=== PATIENT | male | born 1930 | race African-American/Black ===

== ENCOUNTER 2016-09-15 12:29 | Emergency (ER) | payer MEDICARE ==
[2016-09-15 12:33] VITALS: TEMP 98.1
--- NOTE | 2016-09-15 14:05 | ED ---
General Adult HPI - General Chief complaint: Urogenital Stated complaint: Male Time Seen by Provider: 09/15/16 13:46 Source: patient, RN notes reviewed Mode of arrival: wheelchair Limitations: no limitations - History of Present Illness Initial comments: This is an 86-year-old male presents with problems with his Gamino catheter. Patient states the bag is leaking. Patient states he gets the Gamino removed in 2 days. Patient states he was at his urologist today but did not ask for a new bag. Patient is also requesting pain medicine for pain associated with the gamino. Patient denies any sign of infection or abdominal pain or back pain. Patient denies any fever/chills or testicular pain. Patient admits to normal urine output, denies any hematuria. Patient denies any recent fever, chills, shortness breath, chest pain, abdominal pain, nausea/vomiting/diarrhea, numbness , tingling, headache, or visual changes, or any other complaints. - Related Data Home Medications Medication Instructions Recorded Confirmed Aspirin 325 mg PO BID 08/31/16 09/07/16 Tamsulosin [Flomax] 0.4 mg PO DAILY 08/31/16 09/07/16 Artificial Tears-Hypromellose 1 drops BOTH EYES DAILY PRN 09/07/16 09/07/16 [Artificial Tear Drops] Previous Rx's Medication Instructions Recorded Sulfamethox-Tmp 800-160Mg [Bactrim 1 tab PO Q12HR #20 tab 09/15/16 DS 800-160 mg] Allergies Allergy/AdvReac Type Severity Reaction Status Date / Time No Known Allergies Allergy Verified 09/15/16 12:33 Review of Systems ROS Statement: Those systems with pertinent positive or pertinent negative responses have been documented in the HPI. ROS Other: All systems not noted in ROS Statement are negative. Past Medical History Past Medical History: Atrial Fibrillation, COPD, GERD/Reflux, Hypertension, Memory Impairment, Myocardial Infarction ([place]), Osteoarthritis (OA), Prostate Disorder Additional Past Medical History / Comment(s): memory problems, indwelling cath Last Myocardial Infarction Date:: unk History of Any Multi-Drug Resistant Organisms: None Reported Past Surgical History: Heart Catheterization, Orthopedic Surgery Additional Past Surgical History / Comment(s): right knee ligament repair, cataracts Past Anesthesia/Blood Transfusion Reactions: No Reported Reaction Past Psychological History: No Psychological Hx Reported Smoking Status: Former smoker Past Alcohol Use History: None Reported Additional Past Alcohol Use History / Comment(s): started smoking at age smoked 1.5 ppd quit 1974 Past Drug Use History: None Reported - Past Family History Father Additional Family Medical History / Comment(s): heart problems not sure what at age 73 Mother Family Medical History: Diabetes Mellitus Additional Family Medical History / Comment(s): at age 69 from complications from diabetes General Exam - General Exam Comments Initial Comments: General: The patient is awake and alert, in no distress, and does not appear acutely ill. Eye: Pupils are equal, round and reactive to light, extra-ocular movements are intact. No nystagmus. There is normal conjunctiva bilaterally. No signs of icterus. Neck: The neck is supple, there is no tenderness or JVD. Cardiovascular: There is a regular rate and rhythm. No murmur, rub or gallop is appreciated. Respiratory: Lungs are clear to auscultation, respirations are non-labored, breath sounds are equal. No wheezes, stridor, rales, or rhonchi. Gastrointestinal: Soft, non-distended, non-tender abdomen without masses or organomegaly noted. There is no rebound or guarding present. No CVA tenderness. Bowel sounds are unremarkable. : Gamino catheter in place. No erythema, swelling, discharge or warmth to the urethral meatus. Urine color normal, no hematuria. No leaking of the Gamino bag is noted. Musculoskeletal: Normal ROM, no tenderness. Strength 5/5. Sensation intact. Radial Pulses equal bilaterally 2+. Neurological: A&O x 3. CN II-XII intact, There are no obvious motor or sensory deficits. Coordination appears grossly intact. Speech is normal. Skin: Skin is warm and dry and no rashes or lesions are noted. Psychiatric: Cooperative, appropriate mood & affect, normal judgment. Limitations: no limitations Course Vital Signs 09/15/16 12:31 Temperature 98.1 F Pulse Rate 89 Respiratory 18 Rate Blood Pressure 137/89 O2 Sat by Pulse 96 Oximetry Medical Decision Making - Medical Decision Making This is an 86-year-old male who presents with gamino catheter problems. On physical exam: : Gamino catheter in place. No erythema, swelling, discharge or warmth to the urethral meatus. Urine color normal, no hematuria. No leaking of the Gamino bag is noted. Abdomen is soft, nontender nondistended. No CVA tenderness with normal bowel sounds. No guarding or rigidity. Patient states he gets his catheter removed in 2 days. Vital signs temperature 98.1, Pulse rate 89, respiratory rate 18, blood pressure 137/89, O2 sat 96%. Patient was bladder scanned and had 84 mL in the bladder. A urinalysis was sent and came back showing evidence for urinary tract infection. I discussed results with patient. I discussed that patient will be put on a course of Bactrim. I discussed close follow-up with the patient's PCP. I discussed return parameters. Patient is afebrile in the EC today. Discussed [id number] Tylenol and/or Motrin as needed for any pain. Discussed that patient should follow up with PCP in one to 2 days or return to the EC for any worsening symptoms or for any further concerns. Patient was receptive to this plan and patient will be discharged home. I discussed his case with attending physician Dr. Mata who agrees the plan as stated above. - Lab Data Lab Results 09/15/16 Range/Units 14:49 Urine Color Yellow Urine Appearance Cloudy (Clear) Urine pH 6.0 (5.0-8.0) Ur Specific [place] 1.022 (1.001-1.035) Urine Protein 2+ H (Negative) Urine Glucose (UA) Negative (Negative) Urine Ketones Negative (Negative) Urine Blood Small H (Negative) Urine Nitrate Negative (Negative) Urine Bilirubin Negative (Negative) Urine Urobilinogen <2.0 (<2.0) mg/dL Ur Leukocyte Esterase Large H (Negative) Urine RBC 42 H (0-5) /hpf Urine WBC >182 H (0-5) /hpf Ur Squamous Epith Cells 1 (0-4) /hpf Urine Bacteria Rare H (None) /hpf Urine Mucus Few H (None) /hpf Disposition Clinical Impression: Urinary tract infection, Gamino catheter in place Disposition: HOME SELF-CARE Condition: Good Instructions: Urinary Tract Infection in Men (ED) Additional Instructions: Please finish the entire course of antibiotics. Please drink plenty of fluids. Please use [id number] Tylenol and/or Motrin as needed for any pain. Please use medication as discussed. Please follow-up with family doctor in the next 2 days of symptoms have not improved. Please return to emergency room if the symptoms increase or worsen or for any other concerns. Prescriptions: Sulfamethox-Tmp 800-160Mg [Bactrim DS 800-160 mg] 1 tab PO Q12HR #20 tab Referrals: Jaycob Douglass MD [Primary Care Provider] - 1-2 days Time of Disposition: 15:29
[2016-09-15] MEDS ORDERED: ACETAMINOPHEN TAB 500 MG TAB PO STA (14:25)
[2016-09-15 15:04] LABS: Appearance,Urine Cloudy (Clear); Bacteria,Urine Rare /hpf; Bilirubin,Urine Negative (Negative); Glucose,Urine (UA) Negative (Negative); Ketones,Urine Negative (Negative); Leukocyte Esterase,Urine Large (Negative); Mucus,Urine Few /hpf; Nitrite,Urine Negative (Negative); Particle Count 57604; Protein,Urine 2+ (Negative); RBC,Urine 42 /hpf (0-5); Specific Gravity,Urine 1.022 (1.001-1.035); Squamous Epithelial Cell,Urine 1 /hpf (0-4); UA Billing (MACRO vs. MICRO) MICRO; Urobilinogen,Urine <2.0 mg/dL (<2.0); WBC,Urine >182 /hpf (0-5)
[2016-09-15 15:33] VITALS: BP 131/67; PULSE 78; RESP 20
== END 2016-09-15 15:33 | disposition home or self-care (01) ==
LOC: EC 12:29
DX: N39.0 Urinary tract infection, site not specified (principal); Z79.82 Long term (current) use of aspirin; Z79.899 Other long term (current) drug therapy; I25.2 Old myocardial infarction; Z87.891 Personal history of nicotine dependence; N42.9 Disorder of prostate, unspecified
CPT/HCPCS: 51798; 81001; 87077; 87086; 87186; 99283

== ENCOUNTER 2016-09-16 11:32 | Emergency (ER) | payer MEDICARE ==
[2016-09-16 11:36] VITALS: BP 168/82; PULSE 93; RESP 20; TEMP 97.8
--- NOTE | 2016-09-16 12:04 | ED ---
General Adult HPI - General Chief complaint: Recheck/Abnormal Lab/Rx Stated complaint: cathater problems Time Seen by Provider: 09/16/16 11:50 Source: patient, RN notes reviewed Mode of arrival: wheelchair Limitations: no limitations - History of Present Illness Initial comments: 86-year-old male presents emergency Department chief complaint Corado catheter bag leaking. Patient states started leaking this morning. Patient states since sure what happened. Patient states she was just seen here and was at reevaluated for his urine. Patient offers no complaints. Denies fever, chills. - Related Data Home Medications Medication Instructions Recorded Confirmed Aspirin 325 mg PO BID 08/31/16 09/16/16 Tamsulosin [Flomax] 0.4 mg PO DAILY 08/31/16 09/16/16 Artificial Tears-Hypromellose 1 drops BOTH EYES DAILY PRN 09/07/16 09/16/16 [Artificial Tear Drops] Previous Rx's Medication Instructions Recorded Sulfamethox-Tmp 800-160Mg [Bactrim 1 tab PO Q12HR #20 tab 09/15/16 DS 800-160 mg] Allergies Allergy/AdvReac Type Severity Reaction Status Date / Time No Known Allergies Allergy Verified 09/16/16 11:56 Review of Systems ROS Statement: Those systems with pertinent positive or pertinent negative responses have been documented in the HPI. ROS Other: All systems not noted in ROS Statement are negative. Past Medical History Past Medical History: Atrial Fibrillation, COPD, GERD/Reflux, Hypertension, Memory Impairment, Myocardial Infarction ([place]), Osteoarthritis ([place]), Prostate Disorder Additional Past Medical History / Comment(s): memory problems, indwelling cath Last Myocardial Infarction Date:: unk History of Any Multi-Drug Resistant Organisms: None Reported Past Surgical History: Heart Catheterization, Orthopedic Surgery Additional Past Surgical History / Comment(s): right knee ligament repair, cataracts Past Anesthesia/Blood Transfusion Reactions: No Reported Reaction Past Psychological History: No Psychological Hx Reported Smoking Status: Former smoker Past Alcohol Use History: None Reported Additional Past Alcohol Use History / Comment(s): started smoking at age smoked 1.5 ppd quit 1973 Past Drug Use History: None Reported - Past Family History Father Additional Family Medical History / Comment(s): heart problems not sure what at age 73 Mother Family Medical History: Diabetes Mellitus Additional Family Medical History / Comment(s): at age 69 from complications from diabetes General Exam Limitations: no limitations General appearance: alert, in no apparent distress Head exam: Present: atraumatic, normocephalic, normal inspection Respiratory exam: Present: normal lung sounds bilaterally. Absent: respiratory distress, wheezes, rales, rhonchi, stridor Cardiovascular Exam: Present: regular rate, normal rhythm, normal heart sounds. Absent: systolic murmur, diastolic murmur, rubs, gallop, clicks GI/Abdominal exam: Present: soft, normal bowel sounds. Absent: distended, tenderness, guarding, rebound, rigid exam: Present: other (Corado catheter in place, leg bag is leaking. There is no problems with the catheter itself) Course Vital Signs 09/16/16 11:35 Temperature 97.8 F Pulse Rate 93 Respiratory 20 Rate Blood Pressure 168/82 O2 Sat by Pulse 99 Oximetry Medical Decision Making - Medical Decision Making 78-year-old male presented for Corado catheter bag leaking. The bag was exchanged. Patient will be discharged. Disposition Clinical Impression: Problem with Corado catheter Disposition: HOME SELF-CARE Condition: Stable Instructions: Corado Catheter Placement and Care (ED) Additional Instructions: Please return to the Emergency Department if symptoms worsen or any other concerns. Time of Disposition: 12:04
== END 2016-09-16 12:17 | disposition home or self-care (01) ==
LOC: EC 11:32
DX: T83.038A Leakage of other urinary catheter, initial encounter (principal); I25.2 Old myocardial infarction; N42.9 Disorder of prostate, unspecified; M19.90 Unspecified osteoarthritis, unspecified site; Z98.61 Coronary angioplasty status; Z79.82 Long term (current) use of aspirin; Z87.891 Personal history of nicotine dependence; Z79.899 Other long term (current) drug therapy
CPT/HCPCS: 51702; 99282

== ENCOUNTER 2016-09-20 16:12 | Emergency (ER) | payer MEDICARE ==
[2016-09-20 16:42] VITALS: RESP 18
[2016-09-20] MEDS ORDERED: HYDROcodone/APAP 5-325MG 1 EACH TAB PO STA (17:23)
--- NOTE | 2016-09-20 17:43 | ED ---
General Adult HPI - General Chief complaint: Urogenital Stated complaint: Male Gu Source: patient, RN notes reviewed, old records reviewed Mode of arrival: wheelchair Limitations: no limitations - History of Present Illness Initial comments: Chief complaint history of present illness patient has 2 complaints one his leg bag is leaking. This would be replaced. The second is he has chronic right knee pain. No new injuries. History of surgery on that knee with occasional steroid shots. - Related Data Home Medications Medication Instructions Recorded Confirmed Aspirin 325 mg PO BID 08/31/16 09/20/16 Tamsulosin [Flomax] 0.4 mg PO DAILY 08/31/16 09/20/16 Previous Rx's Medication Instructions Recorded Sulfamethox-Tmp 800-160Mg [Bactrim 1 tab PO Q12HR #20 tab 09/15/16 DS 800-160 mg] Allergies Allergy/AdvReac Type Severity Reaction Status Date / Time No Known Allergies Allergy Verified 09/20/16 16:48 Review of Systems ROS Statement: Those systems with pertinent positive or pertinent negative responses have been documented in the HPI. Patient denying any headache or visual acuity changes no chest pain shortness breath GI/ problems other than a leaking Corado catheter bag which is attached to his leg. This will be replaced. Past medical problems listed on the chart include A. fib, COPD, GERD, hypertension, mild dementia. Previous HI, OA, prostate disorder, surgeries include heart cath, orthopedic surgery on his right knee with ligament repair. Chronic right knee laterally. Nonsmoker nondrinker no known ALLERGIES. Family history noncontributory ROS Other: All systems not noted in ROS Statement are negative. Past Medical History Past Medical History: Atrial Fibrillation, COPD, GERD/Reflux, Hypertension, Memory Impairment, Myocardial Infarction ([place]), Osteoarthritis (OA), Prostate Disorder Additional Past Medical History / Comment(s): memory problems, indwelling cath Last Myocardial Infarction Date:: unk History of Any Multi-Drug Resistant Organisms: None Reported Past Surgical History: Heart Catheterization, Orthopedic Surgery Additional Past Surgical History / Comment(s): right knee ligament repair, cataracts Past Anesthesia/Blood Transfusion Reactions: No Reported Reaction Past Psychological History: No Psychological Hx Reported Smoking Status: Former smoker Past Alcohol Use History: None Reported Additional Past Alcohol Use History / Comment(s): started smoking at age smoked 1.5 ppd quit 1973 Past Drug Use History: None Reported - Past Family History Father Additional Family Medical History / Comment(s): heart problems not sure what at age 73 Mother Family Medical History: Diabetes Mellitus Additional Family Medical History / Comment(s): at age 69 from complications from diabetes General Exam - General Exam Comments Initial Comments: Exam pertinent for the patient's of visit finds a leaking Corado catheter bag this is replaced. Examination of the patient's knee shows no swelling. Discomfort with palpation to the lateral aspect. Well-healed scar. No swelling. Neurovascular status of foot is intact. Patient suffers from chronic pain. Requesting a pain pill. No other complaints no other problems. Physical examination was done in general without any other complaints. His vital signs in the emergency room temp 97.2 pulse 89 respiratory rate 18 pulse ox 90% room air blood pressure 145/74. The patient's mildly elevated systolic blood pressure will be rechecked by his family doctor this week. Limitations: no limitations Course Vital Signs 09/20/16 16:40 Temperature 97.2 F L Pulse Rate 89 Respiratory 18 Rate Blood Pressure 145/74 O2 Sat by Pulse 98 Oximetry Medical Decision Making - Medical Decision Making Patient Corado catheter bag was replaced. He was given one [place]. The patient be discharged home. Advised follow-up with his family doctor. Disposition Clinical Impression: Corado catheter problem, Chronic pain of right knee Disposition: HOME SELF-CARE Condition: Fair Instructions: Knee Pain (ED) Time of Disposition: 17:43
[2016-09-20 17:54] VITALS: BP 138/69; PULSE 87; TEMP 97.5
== END 2016-09-20 17:53 | disposition home or self-care (01) ==
LOC: EC 16:12
DX: T83.038A Leakage of other urinary catheter, initial encounter (principal); M25.561 Pain in right knee; G89.29 Other chronic pain; I10 Essential (primary) hypertension; I25.2 Old myocardial infarction; Z98.61 Coronary angioplasty status; Z79.82 Long term (current) use of aspirin; Z87.891 Personal history of nicotine dependence; Z79.899 Other long term (current) drug therapy
CPT/HCPCS: 99283

== ENCOUNTER 2016-09-21 14:25 | Emergency (ER) | payer MEDICARE ==
--- NOTE | 2016-09-21 16:18 | ED ---
Male Urogenital HPI - General Chief complaint: Urogenital Stated complaint: revisit Male Time Seen by Provider: 09/21/16 16:10 Source: patient, RN notes reviewed Mode of arrival: ambulatory Limitations: no limitations - History of Present Illness Initial comments: 86-year-old female presents emergency Department chief complaint of Corado leaking. Patient states that he had leg bag change twice that is not leaking though he states it's leaking around the Corado itself. Patient states that he notices an alert were wet earlier today. Patient denies any pain associated with. Denies any lower abdominal pain. Denies fever, chills. Patient states she is scheduled to follow up with urology this week. - Related Data Home Medications Medication Instructions Recorded Confirmed Aspirin 325 mg PO BID 08/31/16 09/21/16 Tamsulosin [Flomax] 0.4 mg PO DAILY 08/31/16 09/21/16 Previous Rx's Medication Instructions Recorded Sulfamethox-Tmp 800-160Mg [Bactrim 1 tab PO Q12HR #20 tab 09/15/16 DS 800-160 mg] Allergies Allergy/AdvReac Type Severity Reaction Status Date / Time No Known Allergies Allergy Verified 09/21/16 16:10 Review of Systems ROS Statement: Those systems with pertinent positive or pertinent negative responses have been documented in the HPI. ROS Other: All systems not noted in ROS Statement are negative. Past Medical History Past Medical History: Atrial Fibrillation, COPD, GERD/Reflux, Hypertension, Memory Impairment, Myocardial Infarction ([place]), Osteoarthritis (OA), Prostate Disorder Additional Past Medical History / Comment(s): memory problems, indwelling cath Last Myocardial Infarction Date:: unk History of Any Multi-Drug Resistant Organisms: None Reported Past Surgical History: Heart Catheterization, Orthopedic Surgery Additional Past Surgical History / Comment(s): right knee ligament repair, cataracts Past Anesthesia/Blood Transfusion Reactions: No Reported Reaction Past Psychological History: No Psychological Hx Reported Smoking Status: Former smoker Past Alcohol Use History: None Reported Additional Past Alcohol Use History / Comment(s): started smoking at age smoked 1.5 ppd quit 1973 Past Drug Use History: None Reported - Past Family History Father Additional Family Medical History / Comment(s): heart problems not sure what at age 73 Mother Family Medical History: Diabetes Mellitus Additional Family Medical History / Comment(s): at age 69 from complications from diabetes General Exam Limitations: no limitations General appearance: alert, in no apparent distress Respiratory exam: Present: normal lung sounds bilaterally. Absent: respiratory distress, wheezes, rales, rhonchi, stridor Cardiovascular Exam: Present: regular rate, normal rhythm, normal heart sounds. Absent: systolic murmur, diastolic murmur, rubs, gallop, clicks GI/Abdominal exam: Present: soft, normal bowel sounds. Absent: distended, tenderness, guarding, rebound, rigid exam: Present: other (Corado in place) Neurological exam: Present: alert, oriented X3, CN II-XII intact Skin exam: Present: warm, dry, intact, normal color. Absent: rash Course Vital Signs 09/21/16 14:56 Temperature 98.0 F Pulse Rate 76 Respiratory 20 Rate Blood Pressure 139/65 O2 Sat by Pulse 99 Oximetry Medical Decision Making - Medical Decision Making 86-year-old male presented for Corado catheter problems. Patient's Corado was exchanged. Patient will be discharged. Disposition Clinical Impression: Corado catheter problem Disposition: HOME SELF-CARE Condition: Stable Instructions: Corado Catheter Placement and Care (ED) Additional Instructions: Please return to the Emergency Department if symptoms worsen or any other concerns. Referrals: Jaycob Douglass MD [Primary Care Provider] - 1-2 days Abe Oscar MD [STAFF PHYSICIAN] - 1-2 days Time of Disposition: 16:20
[2016-09-21 16:48] VITALS: BP 150/76; PULSE 79; RESP 16; TEMP 97.6
== END 2016-09-21 16:50 | disposition home or self-care (01) ==
LOC: EC 14:25
DX: T83.031A Leakage of indwelling urethral catheter, initial encounter (principal); N42.9 Disorder of prostate, unspecified; Z79.82 Long term (current) use of aspirin; Z79.899 Other long term (current) drug therapy; Z87.891 Personal history of nicotine dependence
CPT/HCPCS: 51702; 99283

== ENCOUNTER 2016-10-10 16:37 | Emergency (ER) | payer MEDICARE ==
[2016-10-10 16:53] VITALS: BP 135/78; PULSE 92; RESP 16; TEMP 98.1
--- NOTE | 2016-10-10 17:09 | ED ---
Male Urogenital HPI - General Chief complaint: Urogenital Stated complaint: Male Time Seen by Provider: 10/10/16 17:02 Source: patient, RN notes reviewed Mode of arrival: wheelchair Limitations: no limitations - History of Present Illness Initial comments: 86-year-old male presents emergency Department with chief complaint of Corado catheter problem. Patient states his leg bag broken. Patient has seen here multiple times for Corado catheter problems. Patient's unsure what happens. Patient denies any abdominal pain including nausea and vomiting diarrhea, constipation. Patient has had a Corado first quite some time states it was changed a few weeks ago. Patient denies flank pain, fever, chill - Related Data Home Medications Medication Instructions Recorded Confirmed Aspirin 325 mg PO BID 08/31/16 09/21/16 Tamsulosin [Flomax] 0.4 mg PO DAILY 08/31/16 09/21/16 Previous Rx's Medication Instructions Recorded Sulfamethox-Tmp 800-160Mg [Bactrim 1 tab PO Q12HR #20 tab 09/15/16 DS 800-160 mg] Allergies Allergy/AdvReac Type Severity Reaction Status Date / Time No Known Allergies Allergy Verified 10/10/16 16:53 Review of Systems ROS Statement: Those systems with pertinent positive or pertinent negative responses have been documented in the HPI. ROS Other: All systems not noted in ROS Statement are negative. Past Medical History Past Medical History: Atrial Fibrillation, COPD, GERD/Reflux, Hypertension, Memory Impairment, Myocardial Infarction ([place]), Osteoarthritis (OA), Prostate Disorder Additional Past Medical History / Comment(s): memory problems, indwelling cath Last Myocardial Infarction Date:: unk History of Any Multi-Drug Resistant Organisms: None Reported Past Surgical History: Heart Catheterization, Orthopedic Surgery Additional Past Surgical History / Comment(s): right knee ligament repair, cataracts Past Anesthesia/Blood Transfusion Reactions: No Reported Reaction Past Psychological History: No Psychological Hx Reported Smoking Status: Former smoker Past Alcohol Use History: None Reported Additional Past Alcohol Use History / Comment(s): started smoking at age smoked 1.5 ppd quit 1973 Past Drug Use History: None Reported - Past Family History Father Additional Family Medical History / Comment(s): heart problems not sure what at age 73 Mother Family Medical History: Diabetes Mellitus Additional Family Medical History / Comment(s): at age 69 from complications from diabetes General Exam Limitations: no limitations General appearance: alert, in no apparent distress Respiratory exam: Present: normal lung sounds bilaterally. Absent: respiratory distress, wheezes, rales, rhonchi, stridor Cardiovascular Exam: Present: regular rate, normal rhythm, normal heart sounds. Absent: systolic murmur, diastolic murmur, rubs, gallop, clicks GI/Abdominal exam: Present: soft, normal bowel sounds. Absent: distended, tenderness, guarding, rebound, rigid exam: Present: other (Corado in place) Course Vital Signs 10/10/16 16:50 Temperature 98.1 F Pulse Rate 92 Respiratory 16 Rate Blood Pressure 135/78 O2 Sat by Pulse 96 Oximetry Medical Decision Making - Medical Decision Making 86-year-old male presented for Corado catheter leg bag leaking. Patient's leg bag was exchanged. Patient will be discharged. Disposition Clinical Impression: Problem with Corado catheter Disposition: HOME SELF-CARE Condition: Stable Instructions: Corado Catheter Placement and Care (ED) Additional Instructions: Please return to the Emergency Department if symptoms worsen or any other concerns. Time of Disposition: 17:09
== END 2016-10-10 17:25 | disposition home or self-care (01) ==
LOC: EC 16:37
DX: T83.038A Leakage of other urinary catheter, initial encounter (principal); N42.9 Disorder of prostate, unspecified; I48.91 Unspecified atrial fibrillation; I25.2 Old myocardial infarction; Z79.82 Long term (current) use of aspirin; Z79.899 Other long term (current) drug therapy; Z87.891 Personal history of nicotine dependence
CPT/HCPCS: 99283

== ENCOUNTER 2016-10-16 13:29 | Emergency (ER) | payer MEDICARE ==
[2016-10-16 14:23] VITALS: BP 171/71; PULSE 68; RESP 16; TEMP 97
[2016-10-16] MEDS ORDERED: PROPARACAINE 0.5% OPHTH DROPS 15 ML BTL LEFT EYE STA (14:34)
--- NOTE | 2016-10-16 14:44 | ED ---
General Adult HPI - General Chief complaint: Eye Problems Stated complaint: Eye Problem Time Seen by Provider: 10/16/16 14:29 Source: patient, RN notes reviewed Mode of arrival: ambulatory Limitations: no limitations - History of Present Illness Initial comments: This is an 86-year-old male who presents with redness to the right eye that started today. Patient states he only noticed this redness when he looks in the mirror and patient denies any pain or foreign body sensation to the right eye. Patient does admit to some blurring of the vision in this right eye. Patient is not on any anticoagulants. Patient denies any trauma, cough, Valsalva, sneezing, vomiting, history of hypertension, history of diabetes and patient does not wear contacts. Patient denies any discharge from the eye. Patient denies any photophobia. Patient denies any recent fever, chills, shortness breath, chest pain, abdominal pain, nausea/vomiting/diarrhea, back pain, numbness, tingling, hematuria, headache, or any other complaints. - Related Data Home Medications Medication Instructions Recorded Confirmed Aspirin 325 mg PO BID 08/31/16 10/16/16 Tamsulosin [Flomax] 0.4 mg PO DAILY 08/31/16 10/16/16 Allergies Allergy/AdvReac Type Severity Reaction Status Date / Time No Known Allergies Allergy Verified 10/16/16 14:23 Review of Systems ROS Statement: Those systems with pertinent positive or pertinent negative responses have been documented in the HPI. ROS Other: All systems not noted in ROS Statement are negative. Past Medical History Past Medical History: Atrial Fibrillation, COPD, GERD/Reflux, Hypertension, Memory Impairment, Myocardial Infarction ([place]), Osteoarthritis (OA), Prostate Disorder Additional Past Medical History / Comment(s): memory problems, indwelling cath Last Myocardial Infarction Date:: unk History of Any Multi-Drug Resistant Organisms: None Reported Past Surgical History: Heart Catheterization, Orthopedic Surgery Additional Past Surgical History / Comment(s): right knee ligament repair, cataracts Past Anesthesia/Blood Transfusion Reactions: No Reported Reaction Past Psychological History: No Psychological Hx Reported Smoking Status: Former smoker Past Alcohol Use History: None Reported Additional Past Alcohol Use History / Comment(s): started smoking at age smoked 1.5 ppd quit 1973 Past Drug Use History: None Reported - Past Family History Father Additional Family Medical History / Comment(s): heart problems not sure what at age 73 Mother Family Medical History: Diabetes Mellitus Additional Family Medical History / Comment(s): at age 69 from complications from diabetes General Exam - General Exam Comments Initial Comments: General: The patient is awake and alert, in no distress, and does not appear acutely ill. Eye: There is a subconjunctival hemorrhage noted to the right eye. There is no hyphema, hypopyon or foreign body noted on eyelid eversion or observation Pupils are equal, round and reactive to light, extra-ocular movements are intact. No nystagmus. There is normal conjunctiva on the left side. No signs of icterus. Visual acuity is 20/25 in the left eye and 20/30 in the right eye. Nose: Nasal turbinates pink and moist Mouth and throat: There are moist mucous membranes and no oral lesions. Neck: The neck is supple, there is no tenderness or JVD. Cardiovascular: There is a regular rate and rhythm. No murmur, rub or gallop is appreciated. Respiratory: Lungs are clear to auscultation, respirations are non-labored, breath sounds are equal. No wheezes, stridor, rales, or rhonchi. Musculoskeletal: Normal ROM, no tenderness. Strength 5/5. Sensation intact. Radial pulses equal bilaterally 2+. Neurological: A&O x 3. CN II-XII intact, There are no obvious motor or sensory deficits. Coordination appears grossly intact. Speech is normal. Skin: Skin is warm and dry and no rashes or lesions are noted. Psychiatric: Cooperative, appropriate mood & affect, normal judgment. Limitations: no limitations Course Vital Signs 10/16/16 14:22 Temperature 97.0 F L Pulse Rate 68 Respiratory 16 Rate Blood Pressure 171/71 O2 Sat by Pulse 97 Oximetry Medical Decision Making - Medical Decision Making This is an 78-year-old male presents subconjunctival hemorrhage of the right eye that started today. Patient denies any pain in the eye. On physical exam There is a subconjunctival hemorrhage noted to the right eye. There is no hyphema, hypopyon or foreign body noted on eyelid eversion or observation Pupils are equal, round and reactive to light, extra-ocular movements are intact. No nystagmus. There is normal conjunctiva on the left side. No signs of icterus. Proparacaine was applied to the eye. Fluorescein stain was applied to the eye and viewed under the Soto lamp. No foreign body noted with eyelid eversion. No corneal abrasion or foreign body was noted with Soto lamp examination. No hyphema and no hypopyon was noted on soto lamp exam. Discussed with the patient that this is a subconjunctival hemorrhage. I discussed that this will resolve on its own in approximately 2 weeks. Discussed return parameters. Discussed follow-up with ophthalmology if this is not resolved in 2 weeks. Discussed that patient should follow up with PCP in one to 2 days or return to the [facility] for any worsening symptoms or for any further concerns. Patient was receptive to this plan and patient will be discharged home. Disposition Clinical Impression: Subconjunctival hemorrhage Disposition: HOME SELF-CARE Condition: Good Instructions: Subconjunctival Hemorrhage (ED) Additional Instructions: The redness in the eye should resolve in approximately 2 weeks. Please follow- up with ophthalmology if this has not resolved within 2 weeks. Discussed that patient should follow up with PCP in one to 2 days or return to the [facility] for any worsening symptoms or any further concerns. Patient was receptive to this plan patient was discharged home. Referrals: None,Stated [Primary Care Provider] - 1-2 days Jimenez Adler MD [REFERRING] - 1-2 days Melvina Ugarte III, MD [STAFF PHYSICIAN] - 1-2 days Cassie Osborne MD [STAFF PHYSICIAN] - 1-2 days Edgar Torres MD [STAFF PHYSICIAN] - 1-2 days Time of Disposition: 15:03
== END 2016-10-16 15:40 | disposition home or self-care (01) ==
LOC: EC 13:29
DX: H11.31 Conjunctival hemorrhage, right eye (principal); N42.9 Disorder of prostate, unspecified; I25.2 Old myocardial infarction; Z98.61 Coronary angioplasty status; Z79.82 Long term (current) use of aspirin; Z87.891 Personal history of nicotine dependence; Z79.899 Other long term (current) drug therapy
CPT/HCPCS: 99282

== ENCOUNTER 2016-10-31 18:57 | Emergency (ER) | payer MEDICARE ==
--- NOTE | 2016-10-31 19:24 | ED ---
General Adult HPI - General Chief complaint: Extremity Problem,Nontraumatic Stated complaint: swollen ankles Time Seen by Provider: 10/31/16 19:06 Source: patient, RN notes reviewed Mode of arrival: ambulatory Limitations: no limitations - History of Present Illness Initial comments: This is an 86-year-old male presents with bilateral leg swelling 2 days. Patient states it is the same throughout the day and does not get worse at night. Patient states he's had this once before many years ago. Patient denies any shortness of breath or chest pain. Patient denies any pain in the legs. Patient states he doesn't have shortness of breath when laying flat and does not sleep with multiple pillows. Patient denies any injury or trauma. Patient states takes medication for history of prostate problems. Patient denies any recent fever, chills, shortness breath, chest pain, abdominal pain, nausea/vomiting/diarrhea, back pain, numbness, tingling, hematuria, headache, or visual changes, or any other complaints. - Related Data Home Medications Medication Instructions Recorded Confirmed Aspirin 325 mg PO BID 08/31/16 10/16/16 Tamsulosin [Flomax] 0.4 mg PO DAILY 08/31/16 10/16/16 Previous Rx's Medication Instructions Recorded Tamsulosin HCl [Flomax] 0.4 mg PO DAILY 7 Days 10/31/16 Allergies Allergy/AdvReac Type Severity Reaction Status Date / Time No Known Allergies Allergy Verified 10/31/16 20:24 Review of Systems ROS Statement: Those systems with pertinent positive or pertinent negative responses have been documented in the HPI. ROS Other: All systems not noted in ROS Statement are negative. Past Medical History Past Medical History: Atrial Fibrillation, COPD, GERD/Reflux, Hypertension, Memory Impairment, Myocardial Infarction ([place]), Osteoarthritis (OA), Prostate Disorder Additional Past Medical History / Comment(s): memory problems, indwelling cath Last Myocardial Infarction Date:: unk History of Any Multi-Drug Resistant Organisms: None Reported Past Surgical History: Heart Catheterization, Orthopedic Surgery Additional Past Surgical History / Comment(s): right knee ligament repair, cataracts Past Anesthesia/Blood Transfusion Reactions: No Reported Reaction Past Psychological History: No Psychological Hx Reported Smoking Status: Former smoker Past Alcohol Use History: None Reported Additional Past Alcohol Use History / Comment(s): started smoking at age smoked 1.5 ppd quit 1973 Past Drug Use History: None Reported - Past Family History Father Additional Family Medical History / Comment(s): heart problems not sure what at age 73 Mother Family Medical History: Diabetes Mellitus Additional Family Medical History / Comment(s): at age 69 from complications from diabetes General Exam - General Exam Comments Initial Comments: General: The patient is awake and alert, in no distress, and does not appear acutely ill. Eye: Pupils are equal, round and reactive to light, extra-ocular movements are intact. No nystagmus. There is normal conjunctiva bilaterally. No signs of icterus. Ears: TMs pink and pearly with intact cone of light bilaterally. Normal external ear canals Nose: Nasal turbinates pink and moist Mouth and throat: There are moist mucous membranes and no oral lesions. Neck: The neck is supple, there is no tenderness or JVD. Cardiovascular: There is an irregularly irregular rhythm with a regular rate. No murmur, rub or gallop is appreciated. Respiratory: Lungs are clear to auscultation, respirations are non-labored, breath sounds are equal. No wheezes, stridor, rales, or rhonchi. Gastrointestinal: Soft, non-distended, non-tender abdomen without masses or organomegaly noted. There is no rebound or guarding present. No CVA tenderness. Bowel sounds are unremarkable. Musculoskeletal: There is 2+ pitting edema bilaterally. No calf tenderness. Normal ROM, no tenderness. Strength 5/5. Sensation intact. Radial pulses equal bilaterally 2+. Posterior tibial pulses are equal bilaterally via [place]. Neurological: A&O x 3. CN II-XII intact, There are no obvious motor or sensory deficits. Coordination appears grossly intact. Speech is normal. Skin: Skin is warm and dry and no rashes or lesions are noted. Psychiatric: Cooperative, appropriate mood & affect, normal judgment. Limitations: no limitations Course Vital Signs 10/31/16 19:00 Temperature 98.4 F Pulse Rate 94 Respiratory 16 Rate Blood Pressure 209/82 O2 Sat by Pulse 97 Oximetry EKG Findings - EKG Comments: EKG Findings:: EKG was done at 1926 showing atrial fibrillation. Ventricular rate of 88, QRS duration of 98 and QTc of 474. This EKG was compared with an EKG on 04/19/2016 with similar findings. No acute ST changes. Medical Decision Making - Medical Decision Making This is an 78-year-old male presents with bilateral leg swelling 2 days. On physical exam lungs are clear to auscultation bilaterally. There is 2+ pitting edema bilaterally. No calf tenderness. Normal ROM, no tenderness. Strength 5/ 5. Sensation intact. Radial pulses equal bilaterally 2+. Posterior tibial pulses are equal bilaterally via [place].There is an irregularly irregular rhythm with a regular rate. No murmur, rub or gallop is appreciated. Patient has a history of A. fib. Patient is unsure what blood pressure medication he takes and patient denies being on any anticoagulants. Blood pressure was rechecked and is 135/81. EKG was done at 1926 showing atrial fibrillation. Ventricular rate of 88, QRS duration of 98 and QTc of 474. This EKG was compared with an EKG on 04/19/2016 with similar findings. No acute ST changes. A chest x-ray was done and reviewed showing:Correlate for pulmonary venous hypertension and interstitial edema, follow-up recommended. Reported by Dr. Reddy. Cardiac labs were within normal limits. No elevated troponin. Basic labs were drawn and reviewed. BNP is slightly elevated but patient is not having any shortness of breath today. I discussed return parameters. I discussed the results of chest x-ray with patient and discussed that he needs to follow-up with his primary care physician in one to 2 days or return to the [facility] for any worsening symptoms or for any further concerns. I discussed this case with attending physician Dr. Damon who agrees with plan as stated above. - Lab Data Result diagrams: 10/31/16 19:30 10/31/16 19:30 Lab Results 10/31/16 10/31/16 10/31/16 Range/Units 19:30 19:30 19:30 WBC 4.9 (3.8-10.6) k/uL RBC 3.90 L (4.30-5.90) m/uL Hgb 12.2 L (13.0-17.5) gm/dL Hct 38.4 L (39.0-53.0) % MCV 98.4 (80.0-100.0) fL MCH 31.2 (25.0-35.0) pg MCHC 31.7 (31.0-37.0) g/dL RDW 14.2 (11.5-15.5) % Plt Count 158 (150-450) k/uL Neutrophils % 66 % Lymphocytes % 17 % Monocytes % 7 % Eosinophils % 7 % Basophils % 0 % Neutrophils # 3.2 (1.3-7.7) k/uL Lymphocytes # 0.9 L (1.0-4.8) k/uL Monocytes # 0.3 (0-1.0) k/uL Eosinophils # 0.4 (0-0.7) k/uL Basophils # 0.0 (0-0.2) k/uL PT (9.0-12.0) sec INR (<1.1) APTT (22.0-30.0) sec Sodium 142 (137-145) mmol/L Potassium 4.2 (3.5-5.1) mmol/L Chloride 104 (98-107) mmol/L Carbon Dioxide 29 (22-30) mmol/L Anion Gap 9 mmol/L BUN 10 (9-20) mg/dL Creatinine 0.79 (0.66-1.25) mg/dL Est GFR (MDRD) Af Amer >60 (>60 ml/min/1.73 sqM) Est GFR (MDRD) Non-Af >60 (>60 ml/min/1.73 sqM) Glucose 116 H (74-99) mg/dL Calcium 9.0 (8.4-10.2) mg/dL Magnesium 2.1 (1.6-2.3) mg/dL Total Bilirubin 0.7 (0.2-1.3) mg/dL AST 23 (17-59) U/L ALT 29 (21-72) U/L Alkaline Phosphatase 66 (38-126) U/L Total Creatine Kinase 83 (55-170) U/L CK-MB (CK-2) 1.1 (0.0-2.4) ng/mL CK-MB (CK-2) Rel Index 1.3 Troponin I 0.023 (0.000-0.034) ng/mL NT-Pro-B Natriuret Pep pg/mL Total Protein 7.4 (6.3-8.2) g/dL Albumin 3.8 (3.5-5.0) g/dL 10/31/16 10/31/16 Range/Units 19:30 19:30 WBC (3.8-10.6) k/uL RBC (4.30-5.90) m/uL Hgb (13.0-17.5) gm/dL Hct (39.0-53.0) % MCV (80.0-100.0) fL MCH (25.0-35.0) pg MCHC (31.0-37.0) g/dL RDW (11.5-15.5) % Plt Count (150-450) k/uL Neutrophils % % Lymphocytes % % Monocytes % % Eosinophils % % Basophils % % Neutrophils # (1.3-7.7) k/uL Lymphocytes # (1.0-4.8) k/uL Monocytes # (0-1.0) k/uL Eosinophils # (0-0.7) k/uL Basophils # (0-0.2) k/uL PT 10.7 (9.0-12.0) sec INR 1.1 (<1.1) APTT 24.3 (22.0-30.0) sec Sodium (137-145) mmol/L Potassium (3.5-5.1) mmol/L Chloride (98-107) mmol/L Carbon Dioxide (22-30) mmol/L Anion Gap mmol/L BUN (9-20) mg/dL Creatinine (0.66-1.25) mg/dL Est GFR (MDRD) Af Amer (>60 ml/min/1.73 sqM) Est GFR (MDRD) Non-Af (>60 ml/min/1.73 sqM) Glucose (74-99) mg/dL Calcium (8.4-10.2) mg/dL Magnesium (1.6-2.3) mg/dL Total Bilirubin (0.2-1.3) mg/dL AST (17-59) U/L ALT (21-72) U/L Alkaline Phosphatase (38-126) U/L Total Creatine Kinase (55-170) U/L CK-MB (CK-2) (0.0-2.4) ng/mL CK-MB (CK-2) Rel Index Troponin I (0.000-0.034) ng/mL NT-Pro-B Natriuret Pep 836 pg/mL Total Protein (6.3-8.2) g/dL Albumin (3.5-5.0) g/dL Disposition Clinical Impression: Localized swelling of both lower legs Disposition: HOME SELF-CARE Condition: Good Instructions: Leg Edema (ED) Additional Instructions: Please follow-up with primary care physician in one to 2 days or return to the [facility] for any worsening symptoms or for any further concerns. Prescriptions: Tamsulosin HCl [Flomax] 0.4 mg PO DAILY 7 Days Referrals: None,Stated [Primary Care Provider] - 1-2 days Jimenez Adler MD [REFERRING] - 1-2 days Cassie Osborne MD [STAFF PHYSICIAN] - 1-2 days Time of Disposition: 20:56
[2016-10-31 19:43] LABS: Basophils % (A) 0 %; CH 31.6; CHCM 32.3; Eosinophils # (A) 0.4 k/uL (0-0.7); Eosinophils % (A) 7 %; HCT 38.4 % (39.0-53.0); HDW 2.48; HGB 12.2 gm/dL (13.0-17.5); Luc # (Auto) 0.09; Luc % (Auto) 2; Lymphocytes # (A) 0.9 k/uL (1.0-4.8); Lymphocytes % (A) 17 %; MCH 31.2 pg (25.0-35.0); MCHC 31.7 g/dL (31.0-37.0); MCV 98.4 fL (80.0-100.0); Mean Platelet Volume 8.8; Monocytes # (A) 0.3 k/uL (0-1.0); Monocytes % (A) 7 %; Neutrophils # (A) 3.2 k/uL (1.3-7.7); Neutrophils % (A) 66 %; RDW 14.2 % (11.5-15.5); WBC 4.9 k/uL (3.8-10.6); WBC (Perox) 5.03
--- NOTE | 2016-10-31 19:51 | XR ---
EXAMINATION TYPE: XR chest 2V DATE OF EXAM: 10/31/2016 7:40 PM COMPARISON: Prior chest x-ray April 2016 HISTORY: Chest pain and leg swelling TECHNIQUE: Frontal and lateral views of the chest are obtained. FINDINGS: The heart is enlarged. Prominent lung volumes may be indicative of COPD. Central vasculari ty and interstitium are somewhat increased. There are coronary artery calcifications. No pneumothorax or pleural effusion. IMPRESSION: Correlate for pulmonary venous hypertension and interstitial edema, follow-up recommende d.
[2016-10-31 19:53] LABS: ALT 29 U/L (21-72); AST 23 U/L (17-59); Alkaline Phosphatase 66 U/L (38-126); Anion Gap 9 mmol/L; Blood Urea Nitrogen 10 mg/dL (9-20); Carbon Dioxide 29 mmol/L (22-30); Chloride 104 mmol/L (98-107); Glucose 116 mg/dL (74-99); Magnesium 2.1 mg/dL (1.6-2.3); Non-African American GFR(MDRD) >60 (>60 ml/min/1.73 sqM); Potassium 4.2 mmol/L (3.5-5.1); Sodium 142 mmol/L (137-145); Total Bilirubin 0.7 mg/dL (0.2-1.3); Total Protein 7.4 g/dL (6.3-8.2)
[2016-10-31 20:12] LABS: Creatine Kinase MB 1.1 ng/mL (0.0-2.4); INR 1.1 (<1.1); Partial Thromboplastin Time 24.3 sec (22.0-30.0); Prothrombin Time 10.7 sec (9.0-12.0); Troponin I 0.023 ng/mL (0.000-0.034)
[2016-10-31 21:07] VITALS: BP 163/97; PULSE 65; RESP 18; TEMP 97
== END 2016-10-31 21:07 | disposition home or self-care (01) ==
LOC: EC 18:57
DX: M79.89 Other specified soft tissue disorders (principal); M19.90 Unspecified osteoarthritis, unspecified site; N42.9 Disorder of prostate, unspecified; I48.91 Unspecified atrial fibrillation; Z79.899 Other long term (current) drug therapy; Z79.82 Long term (current) use of aspirin; I25.2 Old myocardial infarction; Z98.61 Coronary angioplasty status; Z87.891 Personal history of nicotine dependence
CPT/HCPCS: 36415; 71020; 80053; 82550; 82553; 83735; 83880; 84484; 85025; 85610; 85730; 93005; 99283; 99284

== ENCOUNTER 2016-11-07 08:23 | Emergency (ER) | payer MEDICARE ==
--- NOTE | 2016-11-07 08:46 | ED ---
Male Urogenital HPI - General Chief complaint: Urogenital Stated complaint: catheter leak Time Seen by Provider: 11/07/16 08:42 Source: patient, RN notes reviewed Mode of arrival: wheelchair Limitations: no limitations - History of Present Illness Initial comments: 86-year-old male presents emergency department to complaint Corado catheter leaking. Patient states his leg pectoral at the opening at the bottom. Patient woke up with it leaking. Patient states he has an appointment with urologist on Wednesday to have his catheter removed. Patient denies any fever, chills, abdominal pain. Patient states urine has been clear. Patient offers no other complaints. - Related Data Home Medications Medication Instructions Recorded Confirmed Aspirin 325 mg PO BID 08/31/16 10/16/16 Tamsulosin [Flomax] 0.4 mg PO DAILY 08/31/16 10/16/16 Previous Rx's Medication Instructions Recorded Tamsulosin HCl [Flomax] 0.4 mg PO DAILY 7 Days 10/31/16 Allergies Allergy/AdvReac Type Severity Reaction Status Date / Time No Known Allergies Allergy Verified 11/07/16 08:33 Review of Systems ROS Statement: Those systems with pertinent positive or pertinent negative responses have been documented in the HPI. ROS Other: All systems not noted in ROS Statement are negative. Past Medical History Past Medical History: Atrial Fibrillation, COPD, GERD/Reflux, Hypertension, Memory Impairment, Myocardial Infarction ([place]), Osteoarthritis (OA), Prostate Disorder Additional Past Medical History / Comment(s): memory problems, indwelling cath Last Myocardial Infarction Date:: unk History of Any Multi-Drug Resistant Organisms: None Reported Past Surgical History: Heart Catheterization, Orthopedic Surgery Additional Past Surgical History / Comment(s): right knee ligament repair, cataracts Past Anesthesia/Blood Transfusion Reactions: No Reported Reaction Past Psychological History: No Psychological Hx Reported Smoking Status: Former smoker Past Alcohol Use History: None Reported Additional Past Alcohol Use History / Comment(s): started smoking at age smoked 1.5 ppd quit 1974 Past Drug Use History: None Reported - Past Family History Father Additional Family Medical History / Comment(s): heart problems not sure what at age 73 Mother Family Medical History: Diabetes Mellitus Additional Family Medical History / Comment(s): at age 69 from complications from diabetes General Exam Limitations: no limitations General appearance: alert, in no apparent distress Head exam: Present: atraumatic, normocephalic, normal inspection Respiratory exam: Present: normal lung sounds bilaterally. Absent: respiratory distress, wheezes, rales, rhonchi, stridor Cardiovascular Exam: Present: regular rate, normal rhythm, normal heart sounds. Absent: systolic murmur, diastolic murmur, rubs, gallop, clicks GI/Abdominal exam: Present: soft, normal bowel sounds. Absent: distended, tenderness, guarding, rebound, rigid exam: Present: other (Corado catheter in place there is no erythema no drainage) Course Vital Signs 11/07/16 08:32 Temperature 98.1 F Pulse Rate 82 Respiratory 20 Rate Blood Pressure 162/80 O2 Sat by Pulse 97 Oximetry Medical Decision Making - Medical Decision Making 86-year-old male has chronic Corado. Corado catheter leg bag was changed. Patient has appointment on Wednesday with urology. Disposition Clinical Impression: Corado catheter problem Disposition: HOME SELF-CARE Condition: Stable Instructions: Corado Catheter Placement and Care (ED) Additional Instructions: Follow-up with urologist on Wednesday as directed.Please return to the Emergency Department if symptoms worsen or any other concerns. Time of Disposition: 08:46
[2016-11-07 09:05] VITALS: BP 174/82; PULSE 79; RESP 14; TEMP 98.3
== END 2016-11-07 09:05 | disposition home or self-care (01) ==
LOC: EC 08:23
DX: T83.031A Leakage of indwelling urethral catheter, initial encounter (principal); Z79.82 Long term (current) use of aspirin; Z79.899 Other long term (current) drug therapy; Z87.891 Personal history of nicotine dependence
CPT/HCPCS: 99283

== ENCOUNTER 2016-11-26 01:39 | Emergency (ER) | payer MEDICARE ==
[2016-11-26 01:49] VITALS: BP 125/70; PULSE 94; RESP 18; TEMP 98.4
--- NOTE | 2016-11-26 02:00 | ED ---
General Adult HPI - General Chief complaint: Urogenital Stated complaint: Male /Catheter Time Seen by Provider: 11/26/16 01:57 Source: patient Mode of arrival: wheelchair Limitations: no limitations - History of Present Illness Initial comments: 78-year-old male patient presents to emergency department today for a new Corado catheter bag. Patient states that his catheter bag "busted open" on the bottom and has been leaking. Patient denies any physical symptoms. He denies any chest pain, shortness of breath, dizziness, weakness, headache, back pain, nausea, vomiting, abdominal pain, fever or chills. Patient denies any lower abdominal pain. Does not denies any issues with the catheter other than the need for a new bag. - Related Data Home Medications Medication Instructions Recorded Confirmed Aspirin 325 mg PO BID 08/31/16 10/16/16 Tamsulosin [Flomax] 0.4 mg PO DAILY 08/31/16 10/16/16 Previous Rx's Medication Instructions Recorded Tamsulosin HCl [Flomax] 0.4 mg PO DAILY 7 Days 10/31/16 Allergies Allergy/AdvReac Type Severity Reaction Status Date / Time No Known Allergies Allergy Verified 11/26/16 01:49 Review of Systems ROS Statement: Those systems with pertinent positive or pertinent negative responses have been documented in the HPI. ROS Other: All systems not noted in ROS Statement are negative. Past Medical History Past Medical History: Atrial Fibrillation, COPD, GERD/Reflux, Hypertension, Memory Impairment, Myocardial Infarction ([place]), Osteoarthritis (OA), Prostate Disorder Additional Past Medical History / Comment(s): memory problems, indwelling cath x 1 month Last Myocardial Infarction Date:: unk History of Any Multi-Drug Resistant Organisms: None Reported Past Surgical History: Heart Catheterization, Orthopedic Surgery Additional Past Surgical History / Comment(s): right knee ligament repair, cataracts Past Anesthesia/Blood Transfusion Reactions: No Reported Reaction Past Psychological History: No Psychological Hx Reported Smoking Status: Former smoker Past Alcohol Use History: None Reported Additional Past Alcohol Use History / Comment(s): started smoking at age smoked 1.5 ppd quit 1973 Past Drug Use History: None Reported - Past Family History Father Additional Family Medical History / Comment(s): heart problems not sure what at age 73 Mother Family Medical History: Diabetes Mellitus Additional Family Medical History / Comment(s): at age 69 from complications from diabetes General Exam Limitations: no limitations General appearance: alert, in no apparent distress Head exam: Present: atraumatic, normocephalic, normal inspection Eye exam: Present: normal appearance, PERRL, EOMI. Absent: scleral icterus, conjunctival injection, periorbital swelling ENT exam: Present: normal exam, mucous membranes moist Neck exam: Present: normal inspection. Absent: tenderness, meningismus, lymphadenopathy Respiratory exam: Present: normal lung sounds bilaterally, wheezes (Faint expiratory). Absent: respiratory distress, rales, rhonchi, stridor Cardiovascular Exam: Present: regular rate, normal rhythm, normal heart sounds. Absent: systolic murmur, diastolic murmur, rubs, gallop, clicks GI/Abdominal exam: Present: soft, normal bowel sounds. Absent: distended, tenderness, guarding, rebound, rigid exam: Present: normal inspection, other (Corado catheter present). Absent: testicular tenderness, urethral discharge Extremities exam: Present: normal inspection, full ROM, normal capillary refill. Absent: tenderness, pedal edema, joint swelling, calf tenderness Back exam: Present: normal inspection Neurological exam: Present: alert, oriented X3, CN II-XII intact Psychiatric exam: Present: normal affect, normal mood Skin exam: Present: warm, dry, intact, normal color. Absent: rash Course Vital Signs 11/26/16 01:45 Temperature 98.4 F Pulse Rate 94 Respiratory 18 Rate Blood Pressure 125/70 O2 Sat by Pulse 94 L Oximetry Medical Decision Making - Medical Decision Making 86-year-old male patient presented to emergency department today for replacement Corado catheter bag. Patient states that his broken has been leaking. Physical exam is unremarkable. He denies any physical symptoms. Patient's Corado catheter bag will be changed and he will be discharged home to follow-up with his family doctor for further catheter supplies. Disposition Clinical Impression: Chronic indwelling Corado catheter Disposition: HOME SELF-CARE Condition: Stable Instructions: Corado Catheter Placement and Care (ED) Additional Instructions: Follow-up with primary care provider for further Corado catheter supplies. Return for any new, worsening, or concerning symptoms. Referrals: None,Stated [Primary Care Provider] - 1-2 days Time of Disposition: 02:05
== END 2016-11-26 02:21 | disposition home or self-care (01) ==
LOC: EC 01:39
DX: T83.89XA Other specified complication of genitourinary prosthetic devices, implants and grafts, initial encounter (principal); I25.2 Old myocardial infarction; M19.90 Unspecified osteoarthritis, unspecified site; N42.9 Disorder of prostate, unspecified; Z87.891 Personal history of nicotine dependence; Z79.82 Long term (current) use of aspirin; Z79.899 Other long term (current) drug therapy; Z95.818 Presence of other cardiac implants and grafts; Y84.6 Urinary catheterization as the cause of abnormal reaction of the patient, or of later complication, without mention of misadventure at the time of the procedure
CPT/HCPCS: 99282

== ENCOUNTER 2016-12-13 17:32 | Emergency (ER) | payer MEDICARE ==
[2016-12-13 17:52] VITALS: TEMP 99
[2016-12-13 20:26] VITALS: BP 166/104; PULSE 86; RESP 16
--- NOTE | 2016-12-13 20:28 | ED ---
General Adult HPI - General Chief complaint: Recheck/Abnormal Lab/Rx Stated complaint: CATHETER LEAKING Time Seen by Provider: 12/13/16 19:37 Source: patient, RN notes reviewed Mode of arrival: wheelchair Limitations: no limitations - History of Present Illness Initial comments: Patient 86-year-old male who presents emergency room today with chief complaint of Corado catheter bag leaking. He does admit that he has a Corado catheter due to retention. States he is scheduled follow-up with urologist tomorrow. He statesthat was leaking today. States that his problem the past with leaking bags hadn't come here to the emergency room to have a change. Patient denies any other complaints or symptoms. Patient denies any recent fever, chills, shortness of breath, chest pain, back pain, abdominal pain, nausea or vomiting, numbness or tingling, dysuria or hematuria, constipation or diarrhea, headaches or visual changes, or any other complaints. - Related Data Home Medications Medication Instructions Recorded Confirmed Aspirin 325 mg PO BID 08/31/16 12/13/16 Previous Rx's Medication Instructions Recorded Tamsulosin HCl [Flomax] 0.4 mg PO DAILY 7 Days 10/31/16 Allergies Allergy/AdvReac Type Severity Reaction Status Date / Time No Known Allergies Allergy Verified 12/13/16 19:48 Review of Systems ROS Statement: Those systems with pertinent positive or pertinent negative responses have been documented in the HPI. ROS Other: All systems not noted in ROS Statement are negative. Past Medical History Past Medical History: Atrial Fibrillation, COPD, GERD/Reflux, Hypertension, Memory Impairment, Myocardial Infarction ([place]), Osteoarthritis (OA), Prostate Disorder Additional Past Medical History / Comment(s): memory problems, indwelling cath x 1 month Last Myocardial Infarction Date:: unk History of Any Multi-Drug Resistant Organisms: None Reported Past Surgical History: Heart Catheterization, Orthopedic Surgery Additional Past Surgical History / Comment(s): right knee ligament repair, cataracts Past Anesthesia/Blood Transfusion Reactions: No Reported Reaction Past Psychological History: No Psychological Hx Reported Smoking Status: Former smoker Past Alcohol Use History: None Reported Additional Past Alcohol Use History / Comment(s): started smoking at age smoked 1.5 ppd quit 1973 Past Drug Use History: None Reported - Past Family History Father Additional Family Medical History / Comment(s): heart problems not sure what at age 73 Mother Family Medical History: Diabetes Mellitus Additional Family Medical History / Comment(s): at age 69 from complications from diabetes General Exam - General Exam Comments Initial Comments: General: The patient is awake and alert, in no distress, and does not appear acutely ill. Eye: Pupils are equal, round and reactive to light, extra-ocular movements are intact. No nystagmus. There is normal conjunctiva bilaterally. No signs of icterus. Ears, nose, mouth and throat: There are moist mucous membranes and no oral lesions. Neck: The neck is supple, there is no tenderness or JVD. Cardiovascular: There is a regular rate and rhythm. No murmur, rub or gallop is appreciated. Respiratory: Lungs are clear to auscultation, respirations are non-labored, breath sounds are equal. No wheezes, stridor, rales, or rhonchi. Gastrointestinal: Soft, non-distended, non-tender abdomen without masses or organomegaly noted. There is no rebound or guarding present. No CVA tenderness. Musculoskeletal: Normal ROM, no tenderness. Strength 5/5. Sensation intact. Pulses equal bilaterally 2+. Neurological: A&O x 3. CN II-XII intact, There are no obvious motor or sensory deficits. Coordination appears grossly intact. Speech is normal. Skin: Skin is warm and dry and no rashes or lesions are noted. Psychiatric: Cooperative, appropriate mood & affect, normal judgment. Limitations: no limitations Course Vital Signs 12/13/16 12/13/16 17:50 20:26 Temperature 99.0 F Pulse Rate 78 86 Respiratory 17 16 Rate Blood Pressure 126/68 166/104 O2 Sat by Pulse 95 99 Oximetry Medical Decision Making - Medical Decision Making Patient's Corado bag replaced here in the emergency room. Patient has no other complaints. Doing well will be discharged home advised follow-up urologist tomorrow. Disposition Clinical Impression: Corado catheter problem Disposition: HOME SELF-CARE Condition: Good Additional Instructions: Please follow-up urologist with your scheduled appointment tomorrow. Please return to emergency room for any other concerns. Time of Disposition: 20:28
== END 2016-12-13 20:32 | disposition home or self-care (01) ==
LOC: EC 17:32
DX: T83.89XA Other specified complication of genitourinary prosthetic devices, implants and grafts, initial encounter (principal); I48.91 Unspecified atrial fibrillation; I10 Essential (primary) hypertension; I25.2 Old myocardial infarction; Z87.891 Personal history of nicotine dependence; Z79.82 Long term (current) use of aspirin
CPT/HCPCS: 99283

== ENCOUNTER 2016-12-14 19:48 | Emergency (ER) | payer MEDICARE ==
[2016-12-14 20:11] VITALS: TEMP 97.9
--- NOTE | 2016-12-14 21:17 | ED ---
General Adult HPI - General Chief complaint: Recheck/Abnormal Lab/Rx Stated complaint: Cath issues Time Seen by Provider: 12/14/16 21:09 Source: patient, RN notes reviewed Mode of arrival: ambulatory Limitations: no limitations - History of Present Illness Initial comments: Patient is a pleasant 86-year-old male presenting to the emergency department with concerns for his catheter leaking. Patient had it changed early this morning and didn't follow-up with urology. Patient states he saw an personnel assistant there and they did not do much. Patient has had similar problems in the past. Patient states there is no problems placing the catheter this morning. No pain. No fever. - Related Data Home Medications Medication Instructions Recorded Confirmed Aspirin 325 mg PO BID 08/31/16 12/13/16 Previous Rx's Medication Instructions Recorded Tamsulosin HCl [Flomax] 0.4 mg PO DAILY 7 Days 10/31/16 Allergies Allergy/AdvReac Type Severity Reaction Status Date / Time No Known Allergies Allergy Verified 12/14/16 20:11 Review of Systems ROS Statement: Those systems with pertinent positive or pertinent negative responses have been documented in the HPI. ROS Other: All systems not noted in ROS Statement are negative. Constitutional: Denies: fever Eyes: Denies: eye pain ENT: Denies: ear pain Respiratory: Denies: dyspnea Cardiovascular: Denies: chest pain Endocrine: Denies: fatigue Gastrointestinal: Denies: abdominal pain Genitourinary: Denies: dysuria, hematuria, testicular pain, testicular mass Musculoskeletal: Denies: back pain Skin: Denies: rash Neurological: Denies: weakness Past Medical History Past Medical History: Atrial Fibrillation, COPD, GERD/Reflux, Hypertension, Memory Impairment, Myocardial Infarction ([place]), Osteoarthritis (OA), Prostate Disorder Additional Past Medical History / Comment(s): memory problems, indwelling cath x 1 month Last Myocardial Infarction Date:: unk History of Any Multi-Drug Resistant Organisms: None Reported Past Surgical History: Heart Catheterization, Orthopedic Surgery Additional Past Surgical History / Comment(s): right knee ligament repair, cataracts Past Anesthesia/Blood Transfusion Reactions: No Reported Reaction Past Psychological History: No Psychological Hx Reported Smoking Status: Former smoker Past Alcohol Use History: None Reported Additional Past Alcohol Use History / Comment(s): started smoking at age smoked 1.5 ppd quit 1973 Past Drug Use History: None Reported - Past Family History Father Additional Family Medical History / Comment(s): heart problems not sure what at age 73 Mother Family Medical History: Diabetes Mellitus Additional Family Medical History / Comment(s): at age 69 from complications from diabetes General Exam Limitations: no limitations General appearance: alert, in no apparent distress Head exam: Present: atraumatic Eye exam: Present: normal appearance, PERRL ENT exam: Present: normal oropharynx Neck exam: Present: normal inspection Respiratory exam: Present: normal lung sounds bilaterally Cardiovascular Exam: Present: regular rate, normal rhythm GI/Abdominal exam: Present: soft. Absent: tenderness exam: Present: normal inspection, other (Mild leaking from the urethra of urine. 16 Corado catheter present.). Absent: scrotal swelling, circumcision Extremities exam: Present: normal inspection Neurological exam: Present: alert Psychiatric exam: Present: normal affect, normal mood Skin exam: Absent: rash Course Vital Signs 12/14/16 20:09 Temperature 97.9 F Pulse Rate 68 Respiratory 18 Rate Blood Pressure 154/85 O2 Sat by Pulse 99 Oximetry Medical Decision Making - Medical Decision Making Patient advised to follow-up again tomorrow with neurology and consider seeing the physician. Corado catheter will be changed by nursing staff. Larger catheter will be placed. Disposition Clinical Impression: Urinary retention Disposition: HOME SELF-CARE Condition: Stable Instructions: Urinary Retention in Men (ED) Additional Instructions: Please follow-up with urology again tomorrow, consider seeing physician. Return for unable to urinate, leaking, pain, fever, worsening symptoms or other concerns. Referrals: None,Stated [Primary Care Provider] - 1-2 days Abe Oscar MD [STAFF PHYSICIAN] - 1-2 days Cassie Osborne MD [STAFF PHYSICIAN] - 1-2 days
[2016-12-14 22:28] VITALS: BP 151/83; PULSE 69; RESP 16
== END 2016-12-14 22:27 | disposition home or self-care (01) ==
LOC: EC 19:48
DX: R33.9 Retention of urine, unspecified (principal); I48.91 Unspecified atrial fibrillation; I10 Essential (primary) hypertension; I25.2 Old myocardial infarction; Z87.891 Personal history of nicotine dependence; Z79.82 Long term (current) use of aspirin
CPT/HCPCS: 51702; 99282

== ENCOUNTER 2016-12-15 11:48 | Emergency (ER) | payer MEDICARE ==
[2016-12-15 12:59] VITALS: RESP 18
--- NOTE | 2016-12-15 15:17 | ED ---
General Adult HPI - General Chief complaint: Urogenital Stated complaint: catheter leaking Time Seen by Provider: 12/15/16 14:53 Source: patient, RN notes reviewed Mode of arrival: wheelchair Limitations: no limitations - History of Present Illness Initial comments: Patient is 86-year-old male who presents emergency room today with chief complaint of Corado catheter problem. He does admit that his noticed some leaking around Corado catheter site. He states he was seen at [place] yesterday. He had catheter changed. States today's noticed that his brakes and went. He denies any other complaints or symptoms. Patient denies any recent fever, chills , shortness of breath, chest pain, back pain, abdominal pain, nausea or vomiting , numbness or tingling, dysuria or hematuria, constipation or diarrhea, headaches or visual changes, or any other complaints. - Related Data Home Medications Medication Instructions Recorded Confirmed Aspirin 650 mg PO BID 08/31/16 12/15/16 Tamsulosin HCl [Flomax] 0.4 mg PO HS 12/15/16 12/15/16 Allergies Allergy/AdvReac Type Severity Reaction Status Date / Time No Known Allergies Allergy Verified 12/15/16 15:31 Review of Systems ROS Statement: Those systems with pertinent positive or pertinent negative responses have been documented in the HPI. ROS Other: All systems not noted in ROS Statement are negative. Past Medical History Past Medical History: Atrial Fibrillation, COPD, GERD/Reflux, Hypertension, Memory Impairment, Myocardial Infarction ([place]), Osteoarthritis (OA), Prostate Disorder Additional Past Medical History / Comment(s): memory problems, indwelling cath x 1 month Last Myocardial Infarction Date:: unk History of Any Multi-Drug Resistant Organisms: None Reported Past Surgical History: Heart Catheterization, Orthopedic Surgery Additional Past Surgical History / Comment(s): right knee ligament repair, cataracts Past Anesthesia/Blood Transfusion Reactions: No Reported Reaction Past Psychological History: No Psychological Hx Reported Smoking Status: Former smoker Past Alcohol Use History: None Reported Additional Past Alcohol Use History / Comment(s): started smoking at age smoked 1.5 ppd quit 1973 Past Drug Use History: None Reported - Past Family History Father Additional Family Medical History / Comment(s): heart problems not sure what at age 73 Mother Family Medical History: Diabetes Mellitus Additional Family Medical History / Comment(s): at age 69 from complications from diabetes General Exam - General Exam Comments Initial Comments: General: The patient is awake and alert, in no distress, and does not appear acutely ill. Eye: Pupils are equal, round and reactive to light, extra-ocular movements are intact. No nystagmus. There is normal conjunctiva bilaterally. No signs of icterus. Ears, nose, mouth and throat: There are moist mucous membranes and no oral lesions. Neck: The neck is supple, there is no tenderness or JVD. Cardiovascular: There is a regular rate and rhythm. No murmur, rub or gallop is appreciated. Respiratory: Lungs are clear to auscultation, respirations are non-labored, breath sounds are equal. No wheezes, stridor, rales, or rhonchi. Gastrointestinal: Soft, non-distended, non-tender abdomen without masses or organomegaly noted. There is no rebound or guarding present. No CVA tenderness. Bowel sounds are unremarkable. Musculoskeletal: Normal ROM, no tenderness. Strength 5/5. Sensation intact. Pulses equal bilaterally 2+. Neurological: A&O x 3. CN II-XII intact, There are no obvious motor or sensory deficits. Coordination appears grossly intact. Speech is normal. Skin: Skin is warm and dry and no rashes or lesions are noted. Psychiatric: Cooperative, appropriate mood & affect, normal judgment. : Corado catheter placed. No obvious sign of leakage. Brace are damp. Limitations: no limitations Course Vital Signs 12/15/16 12:57 Temperature 97.6 F Pulse Rate 95 Respiratory 18 Rate Blood Pressure 121/94 O2 Sat by Pulse 98 Oximetry Medical Decision Making - Medical Decision Making Patient's Corado catheter change in the emergency room under success. Patient advised follow-up with urology tomorrow. Advised return to emergency room for any other concerns. Disposition Clinical Impression: Corado catheter problem Disposition: HOME SELF-CARE Condition: Good Additional Instructions: Please follow-up with urology in the next 1-2 days. Please return to emergency room for any other concerns. Referrals: None,Stated [Primary Care Provider] - 1-2 days Abe Oscar MD [STAFF PHYSICIAN] - 1-2 days Time of Disposition: 16:09
[2016-12-15 16:35] VITALS: BP 116/68; PULSE 80; TEMP 98.4
== END 2016-12-15 16:36 | disposition home or self-care (01) ==
LOC: EC 11:48
DX: T83.038A Leakage of other urinary catheter, initial encounter (principal); N42.9 Disorder of prostate, unspecified; Z79.82 Long term (current) use of aspirin; Z79.899 Other long term (current) drug therapy; Z87.891 Personal history of nicotine dependence
CPT/HCPCS: 99283

== ENCOUNTER 2016-12-19 14:23 | Emergency (ER) | payer MEDICARE ==
[2016-12-19 14:46] VITALS: BP 134/68; PULSE 89; RESP 16; TEMP 99.4
--- NOTE | 2016-12-19 16:01 | ED ---
General Adult HPI - General Chief complaint: Urogenital Stated complaint: Male Source: patient Mode of arrival: wheelchair Limitations: no limitations - History of Present Illness Initial comments: 6-year-old male with past medical history of indwelling urinary catheter due to prostate competitions presenting for evaluation of leaking Corado. He has been evaluated at this facility multiple times within the last week for similar type symptoms and at least 10 times already this year. He states that the collection bag is not malfunctioning but he has urine leaking around the Corado from his penis. He denies any discomfort in the bladder or belly pain. - Related Data Home Medications Medication Instructions Recorded Confirmed Aspirin 650 mg PO BID 08/31/16 12/19/16 Tamsulosin HCl [Flomax] 0.4 mg PO HS 12/15/16 12/19/16 Allergies Allergy/AdvReac Type Severity Reaction Status Date / Time No Known Allergies Allergy Verified 12/19/16 15:02 Review of Systems ROS Statement: Those systems with pertinent positive or pertinent negative responses have been documented in the HPI. ROS Other: All systems not noted in ROS Statement are negative. Constitutional: Denies: fever, chills, weight change, night sweats Eyes: Denies: eye pain, eye discharge, vision change ENT: Denies: ear pain, throat pain, dental pain, hearing loss Respiratory: Denies: cough, dyspnea Cardiovascular: Denies: chest pain, palpitations Endocrine: Denies: fatigue, polydipsia, polyuria Gastrointestinal: Denies: abdominal pain, nausea, vomiting, diarrhea, constipation, hematemesis Genitourinary: Reports: other (Urine leakage around Corado catheter from penis.) . Denies: urgency, dysuria Musculoskeletal: Denies: back pain, arthralgia Skin: Denies: rash, lesions Neurological: Denies: headache, weakness Psychiatric: Denies: anxiety, depression Hematological/Lymphatic: Denies: easy bleeding, swollen glands Past Medical History Past Medical History: Atrial Fibrillation, COPD, GERD/Reflux, Hypertension, Memory Impairment, Myocardial Infarction ([place]), Osteoarthritis (OA), Prostate Disorder Additional Past Medical History / Comment(s): memory problems, indwelling cath x 1 month Last Myocardial Infarction Date:: unk History of Any Multi-Drug Resistant Organisms: None Reported Past Surgical History: Heart Catheterization, Orthopedic Surgery Additional Past Surgical History / Comment(s): right knee ligament repair, cataracts Past Anesthesia/Blood Transfusion Reactions: No Reported Reaction Past Psychological History: No Psychological Hx Reported Smoking Status: Former smoker Past Alcohol Use History: None Reported Additional Past Alcohol Use History / Comment(s): started smoking at age smoked 1.5 ppd quit 1974 Past Drug Use History: None Reported - Past Family History Father Additional Family Medical History / Comment(s): heart problems not sure what at age 73 Mother Family Medical History: Diabetes Mellitus Additional Family Medical History / Comment(s): at age 69 from complications from diabetes General Exam Limitations: no limitations General appearance: alert, in no apparent distress Head exam: Present: atraumatic, normocephalic, normal inspection Eye exam: Present: normal appearance, PERRL, EOMI. Absent: scleral icterus, conjunctival injection, periorbital swelling ENT exam: Present: normal exam, mucous membranes moist Neck exam: Present: normal inspection. Absent: tenderness, meningismus, lymphadenopathy Respiratory exam: Present: normal lung sounds bilaterally. Absent: respiratory distress, wheezes, rales, rhonchi, stridor Cardiovascular Exam: Present: regular rate, normal rhythm, normal heart sounds. Absent: systolic murmur, diastolic murmur, rubs, gallop, clicks GI/Abdominal exam: Present: soft, normal bowel sounds. Absent: distended, tenderness, guarding, rebound, rigid Rectal exam: Present: deferred External exam: Present: normal external exam. Absent: erythema, swelling, lesions Extremities exam: Present: normal inspection, full ROM, normal capillary refill. Absent: tenderness, pedal edema, joint swelling, calf tenderness Back exam: Present: normal inspection Neurological exam: Present: alert, oriented X3, CN II-XII intact Psychiatric exam: Present: normal affect, normal mood Skin exam: Present: warm, dry, intact, normal color. Absent: rash Course Vital Signs 12/19/16 14:43 Temperature 99.4 F Pulse Rate 89 Respiratory 16 Rate Blood Pressure 134/68 O2 Sat by Pulse 97 Oximetry Medical Decision Making - Medical Decision Making 86-year-old -D[place] male with past medical history of indwelling Corado presenting for leakage of urine around the Corado from his penis. He is presented to this department numerous times in the last couple weeks due to back malfunction and leakage around the Corado. He states that it was just replaced a few days ago Corado started leaking and today. On physical examination he has no pain anywhere there are no rashes or lesions noted and there appears to be no leakage from around the Corado. The patient states that this is a concern to him because he is going to his 's tomorrow and doesn't want to have leakage on his suit in the morning. Discussed pt with Dr. Macias (urology) who recommended that the Corado be replaced and for the patient to follow-up in his office next week. Corado replaced without any Locations and there appeared to be no leakage after placement. The patient was informed of conversation with the urologist and advised to make the appointment as an outpatient. He was advised to follow with his primary care physician but to return to this facility if his symptoms should worsen or persist. The patient acknowledged an understanding of this information and agreed with this plan of care. Disposition Clinical Impression: Corado catheter problem Disposition: HOME SELF-CARE Condition: Stable Instructions: Corado Catheter Placement and Care (ED) Referrals: None,Stated [Primary Care Provider] - 1-2 days Feng Macias MD [STAFF PHYSICIAN] - 1-2 days Time of Disposition: 16:01
== END 2016-12-19 16:31 | disposition home or self-care (01) ==
LOC: EC 14:23
DX: T83.031A Leakage of indwelling urethral catheter, initial encounter (principal); M19.90 Unspecified osteoarthritis, unspecified site; N42.9 Disorder of prostate, unspecified; Z79.82 Long term (current) use of aspirin; Z87.891 Personal history of nicotine dependence; Z79.899 Other long term (current) drug therapy
CPT/HCPCS: 51702; 99283

== ENCOUNTER 2016-12-31 21:14 | Emergency (ER) | payer MEDICARE ==
[2016-12-31 21:25] VITALS: BP 137/84; PULSE 70; RESP 18; TEMP 98
--- NOTE | 2016-12-31 22:30 | ED ---
Recheck HPI - General Chief Complaint: Recheck/Abnormal Lab/Rx Stated Complaint: BP med refill Time Seen by Provider: 12/31/16 21:30 Source: patient, RN notes reviewed, old records reviewed Mode of arrival: wheelchair Limitations: no limitations - History of Present Illness Initial Comments: Patient is a 86 year old male well known to ED with chief complaint of needing a medication refill for blood pressure medication. Patient does not know the exact medication he needs, he reports he takes a few pills and has been out for 2 days. Patient has chronic BPH issues. Patient arrives with BP 138/74. Patient has no symptoms, he states that he sees PCP in 3 weeks for refills. - Related Data Home Medications Medication Instructions Recorded Confirmed Aspirin 650 mg PO BID 08/31/16 12/31/16 Tamsulosin HCl [Flomax] 0.4 mg PO HS 12/15/16 12/31/16 Previous Rx's Medication Instructions Recorded Atorvastatin [Lipitor] 40 mg PO DAILY #20 tablet 12/31/16 Metoprolol Succinate (ER) [Toprol 25 mg PO DAILY #20 tab 12/31/16 XL] Tamsulosin HCl [Flomax] 0.4 mg PO DAILY #20 cap.er.24h 12/31/16 Allergies Allergy/AdvReac Type Severity Reaction Status Date / Time No Known Allergies Allergy Verified 12/31/16 21:58 Review of Systems ROS Statement: Those systems with pertinent positive or pertinent negative responses have been documented in the HPI. ROS Other: All systems not noted in ROS Statement are negative. Past Medical History Past Medical History: Atrial Fibrillation, COPD, GERD/Reflux, Hypertension, Memory Impairment, Myocardial Infarction ([place]), Osteoarthritis (OA), Prostate Disorder Additional Past Medical History / Comment(s): memory problems, indwelling cath x 1 month Last Myocardial Infarction Date:: unk History of Any Multi-Drug Resistant Organisms: None Reported Past Surgical History: Heart Catheterization, Orthopedic Surgery Additional Past Surgical History / Comment(s): right knee ligament repair, cataracts Past Anesthesia/Blood Transfusion Reactions: No Reported Reaction Past Psychological History: No Psychological Hx Reported Smoking Status: Former smoker Past Alcohol Use History: None Reported Additional Past Alcohol Use History / Comment(s): started smoking at age smoked 1.5 ppd quit 1973 Past Drug Use History: None Reported - Past Family History Father Additional Family Medical History / Comment(s): heart problems not sure what at age 73 Mother Family Medical History: Diabetes Mellitus Additional Family Medical History / Comment(s): at age 69 from complications from diabetes General Exam - General Exam Comments Initial Comments: Pleasant 86 year old male, no distress. Limitations: no limitations General appearance: alert, in no apparent distress Head exam: Present: atraumatic, normocephalic, normal inspection Eye exam: Present: normal appearance, PERRL, EOMI. Absent: scleral icterus, conjunctival injection, periorbital swelling ENT exam: Present: normal exam, mucous membranes moist Neck exam: Present: normal inspection. Absent: tenderness, meningismus, lymphadenopathy Respiratory exam: Present: normal lung sounds bilaterally. Absent: respiratory distress, wheezes, rales, rhonchi, stridor Cardiovascular Exam: Present: regular rate, normal rhythm, normal heart sounds. Absent: systolic murmur, diastolic murmur, rubs, gallop, clicks GI/Abdominal exam: Present: soft, normal bowel sounds. Absent: distended, tenderness, guarding, rebound, rigid Extremities exam: Present: normal inspection, full ROM, normal capillary refill. Absent: tenderness, pedal edema, joint swelling, calf tenderness Back exam: Present: normal inspection Neurological exam: Present: alert, oriented X3, CN II-XII intact Psychiatric exam: Present: normal affect, normal mood Skin exam: Present: warm, dry, intact, normal color. Absent: rash Course Vital Signs 12/31/16 21:24 Temperature 98.0 F Pulse Rate 70 Respiratory 18 Rate Blood Pressure 137/84 O2 Sat by Pulse 97 Oximetry Medical Decision Making - Medical Decision Making Patient is a 86 year old male with chief complaint of needing BP refill. Patient does not know medication at this time, we attempted to call 2 pharmacy that do not have him on file. Patient records were reviewed, and he was discharged with atorvastatin, metoprolol and flomax a few months ago. Patient will be given a medication refills until follow up. Disposition Clinical Impression: Medication refill Disposition: HOME SELF-CARE Condition: Stable Instructions: Hypertension (ED), Benzoyl Peroxide (On the skin), Medicine Refill (ED) Additional Instructions: Follow-up with her primary care provider regards to further medications. Return to the emergency department if any alarming signs or symptoms occur. Prescriptions: Atorvastatin [Lipitor] 40 mg PO DAILY #20 tablet Metoprolol Succinate (ER) [Toprol XL] 25 mg PO DAILY #20 tab Tamsulosin HCl [Flomax] 0.4 mg PO DAILY #20 cap.er.24h Referrals: None,Stated [Primary Care Provider] - 1-2 days Time of Disposition: 22:26
== END 2016-12-31 22:30 | disposition home or self-care (01) ==
LOC: EC 21:14
DX: Z76.0 Encounter for issue of repeat prescription (principal); N40.0 Benign prostatic hyperplasia without lower urinary tract symptoms; I10 Essential (primary) hypertension; M19.90 Unspecified osteoarthritis, unspecified site; Z87.891 Personal history of nicotine dependence; Z79.82 Long term (current) use of aspirin; Z79.899 Other long term (current) drug therapy
CPT/HCPCS: 99283

== ENCOUNTER 2017-01-03 14:55 | Emergency (ER) | payer MEDICARE ==
[2017-01-03 14:59] VITALS: BP 148/87; PULSE 76; RESP 20; TEMP 98.2
--- NOTE | 2017-01-03 15:21 | ED ---
General Adult HPI - General Chief complaint: Urogenital Stated complaint: catheter problems Time Seen by Provider: 01/03/17 15:00 Source: patient, RN notes reviewed, old records reviewed Mode of arrival: wheelchair Limitations: no limitations - History of Present Illness Initial comments: Chief complaint and history of present illness is 89-year-old male with a Corado catheter in for several months. The patient's comes emergency room very frequently because of either obstructive urine flow or urine flowing around the catheter coming out the penis. The patient's biggest concern is he wets his pants he is embarrassed to go outside. Patient was seen by his urologist a week after his last visit which would've been approximately one week ago. He reports the plant this time is for the patient had the catheter removed in approximately 11 days and if the catheter is needed to be replaced then prostate surgery OB contemplated. The patient otherwise denying any dysuria he empties the back frequently. No fever no chills.. - Related Data Home Medications Medication Instructions Recorded Confirmed Aspirin 650 mg PO BID 08/31/16 12/31/16 Tamsulosin HCl [Flomax] 0.4 mg PO HS 12/15/16 12/31/16 Previous Rx's Medication Instructions Recorded Atorvastatin [Lipitor] 40 mg PO DAILY #20 tablet 12/31/16 Metoprolol Succinate (ER) [Toprol 25 mg PO DAILY #20 tab 12/31/16 XL] Tamsulosin HCl [Flomax] 0.4 mg PO DAILY #20 cap.er.24h 12/31/16 Allergies Allergy/AdvReac Type Severity Reaction Status Date / Time No Known Allergies Allergy Verified 01/03/17 14:59 Review of Systems ROS Statement: Those systems with pertinent positive or pertinent negative responses have been documented in the HPI. Review of systems no headache chest pain shortness breath GI problems problems as noted above. No neuro deficits complained of. All systems reviewed. Past medical problems significant for A. fib, COPD, GERD, hypertension, memory impairment, previous [place], OA, BPH,. The patient's surgeries include heart catheterization some orthopedic surgery right knee ligament surgery. Family history no cancers. Patient denies ALLERGIES. Nonsmoker nondrinker. ROS Other: All systems not noted in ROS Statement are negative. Past Medical History Past Medical History: Atrial Fibrillation, COPD, GERD/Reflux, Hypertension, Memory Impairment, Myocardial Infarction ([place]), Osteoarthritis ([place]), Prostate Disorder Additional Past Medical History / Comment(s): memory problems, indwelling cath x 1 month Last Myocardial Infarction Date:: unk History of Any Multi-Drug Resistant Organisms: None Reported Past Surgical History: Heart Catheterization, Orthopedic Surgery Additional Past Surgical History / Comment(s): right knee ligament repair, cataracts Past Anesthesia/Blood Transfusion Reactions: No Reported Reaction Past Psychological History: No Psychological Hx Reported Smoking Status: Former smoker Past Alcohol Use History: None Reported Additional Past Alcohol Use History / Comment(s): started smoking at age smoked 1.5 ppd quit 1974 Past Drug Use History: None Reported - Past Family History Father Additional Family Medical History / Comment(s): heart problems not sure what at age 73 Mother Family Medical History: Diabetes Mellitus Additional Family Medical History / Comment(s): at age 69 from complications from diabetes General Exam - General Exam Comments Initial Comments: General: The patient is awake and alert, in no distress, and does not appear acutely ill. Chief complaint of urine going around the catheter and soiling his clothing. Vital signs temp 98.2 pulse 76 respiratory rate 20 blood pressure 148 /87, pulse ox 98% on room air. Eye: Pupils are equal, extra-ocular movements are intact; there is normal conjunctiva bilaterally. No signs of icterus. Ears, nose, mouth and throat: There are moist mucous membranes and no oral lesions. Neck: No neck pain, full range of motion without discomfort. Cardiovascular: Irregular rhythm but no complaint of palpitations or chest pain.. Respiratory: Lungs are clear to auscultation, respirations are non-labored, breath sounds are equal. No wheezes, stridor, rales, or rhonchi. Gastrointestinal: Soft, , non-tender abdomen without masses or organomegaly noted. There is no rebound or guarding present. No CVA tenderness. Bowel sounds are unremarkable. Patient fully catheter in which she is feeling the leg bag without difficulty which revealed empties as needed several times a day. No urine noted coming around the catheter at this time. Back: Denies back pain. No complaint of any weakness, or neuro deficits. Limitations: no limitations Course Vital Signs 01/03/17 14:57 Temperature 98.2 F Pulse Rate 76 Respiratory 20 Rate Blood Pressure 148/87 O2 Sat by Pulse 98 Oximetry Medical Decision Making - Medical Decision Making Medical decision-making. The patient states his complaint is when the urine goes around the catheter does wet his pants is embarrassed. This occurred on many catheters in the past regardless whether the been freshly replaced or not. We did discuss him using a small diaper or part of a diaper to place in his underwear near the penis can absorb the excess urine as it is not a constant problem. He does have an appointment to follow-up with his urologist and is happy with this temporary solution. He states if he continues to need to have the Corado catheter after his appointment with his urologist they're discussing prostate surgery for BPH. Disposition Clinical Impression: Complication of Corado catheter Disposition: HOME SELF-CARE Condition: Stable Instructions: Corado Catheter Placement and Care (ED) Additional Instructions: Use absorptive material as described to absorb the excess that may come around the penis won't start earlier clothing. Follow-up with your family physician and urologist within the next 10 days as arranged. Return emergency room as needed Time of Disposition: 15:21
== END 2017-01-03 15:39 | disposition home or self-care (01) ==
LOC: EC 14:55
DX: T83.038A Leakage of other urinary catheter, initial encounter (principal); I48.91 Unspecified atrial fibrillation; I25.2 Old myocardial infarction; N42.9 Disorder of prostate, unspecified; Z87.891 Personal history of nicotine dependence; Z79.82 Long term (current) use of aspirin; Z79.899 Other long term (current) drug therapy
CPT/HCPCS: 99283

== ENCOUNTER 2017-01-16 15:39 | Emergency (ER) | payer MEDICARE ==
[2017-01-16 15:43] VITALS: BP 163/75; PULSE 84; RESP 20; TEMP 97.5
--- NOTE | 2017-01-16 16:38 | ED ---
General Adult HPI - General Chief complaint: Urogenital Stated complaint: Catheter problems Time Seen by Provider: 01/16/17 16:21 Source: patient, RN notes reviewed Mode of arrival: wheelchair Limitations: no limitations - History of Present Illness Initial comments: Patient 86-year-old male who presents emergency room today with a chief complaint of Gamino catheter problem. Patient has been seen here in the emergency room multiple times for same complaint. He does admit that there is leaking combing around his Gamino catheter site. Patient does admit that he's been following up with urology. He states the plan is that this Wednesday default catheter supposed to come out. Patient states that he noticed some urine leaking around the catheter site earlier today. He states that he would like to go [facility] he cannot go if this is leaking around it. Patient denies any other complaints or symptoms. Please use medication as discussed. Please follow-up with family doctor in the next 2 days of symptoms have not improved. Please return to emergency room if the symptoms increase or worsen or for any other concerns. - Related Data Home Medications Medication Instructions Recorded Confirmed Aspirin 650 mg PO BID 08/31/16 01/03/17 Tamsulosin HCl [Flomax] 0.4 mg PO HS 12/15/16 01/03/17 Previous Rx's Medication Instructions Recorded Atorvastatin [Lipitor] 40 mg PO DAILY #20 tablet 12/31/16 Metoprolol Succinate (ER) [Toprol 25 mg PO DAILY #20 tab 12/31/16 XL] Allergies Allergy/AdvReac Type Severity Reaction Status Date / Time No Known Allergies Allergy Verified 01/16/17 15:43 Review of Systems ROS Statement: Those systems with pertinent positive or pertinent negative responses have been documented in the HPI. ROS Other: All systems not noted in ROS Statement are negative. Past Medical History Past Medical History: Atrial Fibrillation, COPD, GERD/Reflux, Hypertension, Memory Impairment, Myocardial Infarction ([place]), Osteoarthritis ([place]), Prostate Disorder Additional Past Medical History / Comment(s): memory problems, indwelling cath x 1 month Last Myocardial Infarction Date:: unk History of Any Multi-Drug Resistant Organisms: None Reported Past Surgical History: Heart Catheterization, Orthopedic Surgery Additional Past Surgical History / Comment(s): right knee ligament repair, cataracts Past Anesthesia/Blood Transfusion Reactions: No Reported Reaction Past Psychological History: No Psychological Hx Reported Smoking Status: Former smoker Past Alcohol Use History: None Reported Additional Past Alcohol Use History / Comment(s): started smoking at age smoked 1.5 ppd quit 1974 Past Drug Use History: None Reported - Past Family History Father Additional Family Medical History / Comment(s): heart problems not sure what at age 73 Mother Family Medical History: Diabetes Mellitus Additional Family Medical History / Comment(s): at age 69 from complications from diabetes General Exam Limitations: no limitations General appearance: alert, in no apparent distress Head exam: Present: atraumatic, normocephalic, normal inspection Eye exam: Present: normal appearance, PERRL, EOMI. Absent: scleral icterus, conjunctival injection, periorbital swelling ENT exam: Present: normal exam, mucous membranes moist Neck exam: Present: normal inspection. Absent: tenderness, meningismus, lymphadenopathy Respiratory exam: Present: normal lung sounds bilaterally. Absent: respiratory distress, wheezes, rales, rhonchi, stridor Cardiovascular Exam: Present: regular rate, normal rhythm, normal heart sounds. Absent: systolic murmur, diastolic murmur, rubs, gallop, clicks GI/Abdominal exam: Present: soft, normal bowel sounds. Absent: distended, tenderness, guarding, rebound, rigid Extremities exam: Present: normal inspection, full ROM, normal capillary refill. Absent: tenderness, pedal edema, joint swelling, calf tenderness Back exam: Present: normal inspection Neurological exam: Present: alert, oriented X3, CN II-XII intact Psychiatric exam: Present: normal affect, normal mood Skin exam: Present: warm, dry, intact, normal color. Absent: rash Course Vital Signs 01/16/17 15:41 Temperature 97.5 F L Pulse Rate 84 Respiratory 20 Rate Blood Pressure 163/75 O2 Sat by Pulse 99 Oximetry Medical Decision Making - Medical Decision Making Patient's gamino cath was replaced by nursing staff here in the emergency room. Advised follow-up with his neurologist next 2 days. Disposition Clinical Impression: Gamino catheter problem Disposition: HOME SELF-CARE Condition: Good Instructions: Gamino Catheter Placement and Care (ED) Additional Instructions: Please follow-up urologist the next 1-2 days. Please return to emergency room for any other concerns. Referrals: None,Stated [Primary Care Provider] - 1-2 days Logan Hess MD [STAFF PHYSICIAN] - 1-2 days Time of Disposition: 16:48
== END 2017-01-16 17:07 | disposition home or self-care (01) ==
LOC: EC 15:39
DX: T83.031A Leakage of indwelling urethral catheter, initial encounter (principal); N42.9 Disorder of prostate, unspecified; M19.90 Unspecified osteoarthritis, unspecified site; Z87.891 Personal history of nicotine dependence; Z79.82 Long term (current) use of aspirin; Z79.899 Other long term (current) drug therapy
CPT/HCPCS: 51702; 99283

== ENCOUNTER 2017-02-16 17:03 | Emergency (ER) | payer MEDICARE ==
[2017-02-16 17:15] VITALS: RESP 18
--- NOTE | 2017-02-16 18:12 | ED ---
General Adult HPI - General Chief complaint: Recheck/Abnormal Lab/Rx Stated complaint: Catheter leak Time Seen by Provider: 02/16/17 18:04 Source: patient, RN notes reviewed Mode of arrival: wheelchair Limitations: no limitations - History of Present Illness Initial comments: 86-year-old male presents to the emergency department with a chief complaint of leaking from the urinary catheter. Patient states he was a cathetered is unable to be on his own. Patient states since a changes. Having urine drip from the end of the penis as well as urinary dribbling. Patient states that he is just dripping everywhere and he was concerned. Patient states he has no pain or discomfort comfort. Patient states that he is not having any other symptoms. Patient denies any fever or chills. Patient denies any nausea or vomiting. Patient states he continued to have the symptoms they thought that he should be seen.Patient denies any recent fever, chills, shortness of breath, chest pain, back pain, abdominal pain, nausea vomiting, numbness or tingling, dysuria or hematuria, constipation or diarrhea, headaches or visual changes, or any other current symptoms. - Related Data Home Medications Medication Instructions Recorded Confirmed Aspirin 650 mg PO BID 08/31/16 02/16/17 Tamsulosin HCl [Flomax] 0.4 mg PO HS 12/15/16 02/16/17 Allergies Allergy/AdvReac Type Severity Reaction Status Date / Time No Known Allergies Allergy Verified 02/16/17 18:03 Review of Systems ROS Statement: Those systems with pertinent positive or pertinent negative responses have been documented in the HPI. ROS Other: All systems not noted in ROS Statement are negative. Past Medical History Past Medical History: Atrial Fibrillation, COPD, GERD/Reflux, Hypertension, Memory Impairment, Myocardial Infarction ([place]), Osteoarthritis (OA), Prostate Disorder Additional Past Medical History / Comment(s): memory problems, indwelling cath x 1 month Last Myocardial Infarction Date:: unk History of Any Multi-Drug Resistant Organisms: None Reported Past Surgical History: Heart Catheterization, Orthopedic Surgery Additional Past Surgical History / Comment(s): right knee ligament repair, cataracts Past Anesthesia/Blood Transfusion Reactions: No Reported Reaction Past Psychological History: No Psychological Hx Reported Smoking Status: Former smoker Past Alcohol Use History: None Reported Additional Past Alcohol Use History / Comment(s): started smoking at age smoked 1.5 ppd quit 1974 Past Drug Use History: None Reported - Past Family History Father Additional Family Medical History / Comment(s): heart problems not sure what at age 73 Mother Family Medical History: Diabetes Mellitus Additional Family Medical History / Comment(s): at age 69 from complications from diabetes General Exam Limitations: no limitations General appearance: alert, in no apparent distress Neck exam: Present: normal inspection. Absent: tenderness, meningismus, lymphadenopathy Respiratory exam: Present: normal lung sounds bilaterally. Absent: respiratory distress, wheezes, rales, rhonchi, stridor Cardiovascular Exam: Present: regular rate, normal rhythm, normal heart sounds. Absent: systolic murmur, diastolic murmur, rubs, gallop, clicks exam: Present: normal inspection (Catheter in place), vertical testicular lie. Absent: testicular tenderness, urethral discharge, scrotal swelling, circumcision Neurological exam: Present: alert, oriented X3 Psychiatric exam: Present: normal affect, normal mood Skin exam: Present: warm, dry, intact, normal color. Absent: rash Course Vital Signs 02/16/17 02/16/17 17:13 19:30 Temperature 97.6 F Pulse Rate 77 63 Respiratory 18 18 Rate Blood Pressure 110/74 137/83 O2 Sat by Pulse 96 96 Oximetry Medical Decision Making - Medical Decision Making 86-year-old male presents to the emergency department with a chief complaint of leaking from the urinary catheter. At this time we did change the patient's catheter to a larger size. This time patient's leaking seems to have subsided. We discussed close follow-up with his Dr. return parameters all the patient's family's questions. He stated that he understood and is in agreement with plan. This time he will be discharged. Disposition Clinical Impression: Urinary catheter change required Disposition: HOME SELF-CARE Condition: Stable Instructions: Corado Catheter Placement and Care (ED) Additional Instructions: Please use medication as discussed. Please follow up with family doctor if symptoms have not improved over the next two days. Please return to the emergency room if your symptoms increase or worsen or for any other concerns. Referrals: Cassie Osborne MD [STAFF PHYSICIAN] - 1-2 days Time of Disposition: 21:19
[2017-02-16 21:32] VITALS: BP 153/88; PULSE 75; TEMP 97.5
== END 2017-02-16 21:32 | disposition home or self-care (01) ==
LOC: EC 17:03
DX: T83.89XA Other specified complication of genitourinary prosthetic devices, implants and grafts, initial encounter (principal); I48.91 Unspecified atrial fibrillation; I10 Essential (primary) hypertension; N42.9 Disorder of prostate, unspecified; Z87.891 Personal history of nicotine dependence; Z79.82 Long term (current) use of aspirin; Z79.899 Other long term (current) drug therapy
CPT/HCPCS: 51702; 99283

== ENCOUNTER 2017-02-19 21:07 | Emergency (ER) | payer MEDICARE ==
--- NOTE | 2017-02-19 21:56 | ED ---
Male Urogenital HPI - General Chief complaint: Urogenital Stated complaint: Male Time Seen by Provider: 02/19/17 21:46 Source: patient Mode of arrival: wheelchair - History of Present Illness Initial comments: This 86-year-old white male presents with a complaint of having some occasional bloody drainage from his penis. He states that he will have some stains on his underwear. He does have a indwelling Corado catheter currently. He apparently was having some leakage 3 days ago and the Corado catheter size was increased. This has helped with the leakage. He has had the Corado catheter in place for the last month and a half and states that he is following up with urology in 3 days to potentially have it out. He has some mild pain towards the end of his penis. He denies any other complaints or modifying factors. - Related Data Home Medications Medication Instructions Recorded Confirmed Aspirin 650 mg PO BID 08/31/16 02/19/17 Tamsulosin HCl [Flomax] 0.4 mg PO HS 12/15/16 02/19/17 Allergies Allergy/AdvReac Type Severity Reaction Status Date / Time No Known Allergies Allergy Verified 02/19/17 21:16 Review of Systems ROS Statement: Those systems with pertinent positive or pertinent negative responses have been documented in the HPI. ROS Other: All systems not noted in ROS Statement are negative. Past Medical History Past Medical History: Atrial Fibrillation, COPD, GERD/Reflux, Hypertension, Memory Impairment, Myocardial Infarction ([place]), Osteoarthritis (OA), Prostate Disorder Additional Past Medical History / Comment(s): memory problems, indwelling cath x 1 month Last Myocardial Infarction Date:: unk History of Any Multi-Drug Resistant Organisms: None Reported Past Surgical History: Heart Catheterization, Orthopedic Surgery Additional Past Surgical History / Comment(s): right knee ligament repair, cataracts Past Anesthesia/Blood Transfusion Reactions: No Reported Reaction Past Psychological History: No Psychological Hx Reported Smoking Status: Former smoker Past Alcohol Use History: None Reported Additional Past Alcohol Use History / Comment(s): started smoking at age smoked 1.5 ppd quit 1973 Past Drug Use History: None Reported - Past Family History Father Additional Family Medical History / Comment(s): heart problems not sure what at age 73 Mother Family Medical History: Diabetes Mellitus Additional Family Medical History / Comment(s): at age 69 from complications from diabetes General Exam GI/Abdominal exam: Present: soft. Absent: distended, tenderness exam: Present: normal inspection. Absent: urethral discharge, scrotal swelling External exam: Present: normal external exam, other (There is no current bleeding or drainage noted. The Corado catheter is in place. The urine bag is clear of blood.). Absent: erythema, swelling Course Vital Signs 02/19/17 21:11 Temperature 98 F Pulse Rate 87 Respiratory 20 Rate Blood Pressure 133/92 O2 Sat by Pulse 97 Oximetry Medical Decision Making - Medical Decision Making The patient was seen and examined. Old records were reviewed. The exact cause of this slight bloody drainage is not definitively determined. It certainly could be from some irritation due to the Corado catheter. There is no current bleeding. It overall appears fairly mild. He is following up with urology in 3 days. It is felt as though he should monitor his symptoms and make them aware. Return parameters are discussed and he leaves in no distress. Disposition Clinical Impression: Complication of Corado catheter Disposition: HOME SELF-CARE Condition: Good Instructions: Corado Catheter Placement and Care (ED) Referrals: None,Stated [Primary Care Provider] - 1-2 days Time of Disposition: 21:58
[2017-02-19 22:27] VITALS: BP 132/75; PULSE 88; RESP 18; TEMP 97.8
== END 2017-02-19 22:34 | disposition home or self-care (01) ==
LOC: EC 21:07
DX: T83.098A Other mechanical complication of other urinary catheter, initial encounter (principal); I48.91 Unspecified atrial fibrillation; I10 Essential (primary) hypertension; I25.2 Old myocardial infarction; N42.9 Disorder of prostate, unspecified; Z87.891 Personal history of nicotine dependence; Z79.82 Long term (current) use of aspirin; Z79.899 Other long term (current) drug therapy
CPT/HCPCS: 99283

== ENCOUNTER 2017-02-24 01:57 | Emergency (ER) | payer MEDICARE ==
[2017-02-24 02:04] VITALS: BP 153/79; PULSE 82; RESP 18; TEMP 98
--- NOTE | 2017-02-24 02:47 | ED ---
Male Urogenital HPI - General Chief complaint: Urogenital Stated complaint: Male Time Seen by Provider: 02/24/17 02:14 Source: patient, RN notes reviewed, old records reviewed Mode of arrival: wheelchair Limitations: physical limitation - History of Present Illness Initial comments: Is an 86-year-old male presents emergency Department chief complaint of urinary retention for the past day. Patient is well-known to the emergency department for catheter problems. Patient reports that he is following up with a urologist tomorrow. He states that he had the catheter removed last week and was doing fine until today. Patient reports that he is feeling pain in his lower abdomen and his bladder feels distended. Patient reports the child multiple times that he is unable to. Patient is resting to emergency department hoping to have a catheter installed. - Related Data Home Medications Medication Instructions Recorded Confirmed Aspirin 650 mg PO BID 08/31/16 02/19/17 Tamsulosin HCl [Flomax] 0.4 mg PO HS 12/15/16 02/19/17 Allergies Allergy/AdvReac Type Severity Reaction Status Date / Time No Known Allergies Allergy Verified 02/24/17 02:04 Review of Systems ROS Statement: Those systems with pertinent positive or pertinent negative responses have been documented in the HPI. ROS Other: All systems not noted in ROS Statement are negative. Past Medical History Past Medical History: Atrial Fibrillation, COPD, GERD/Reflux, Hypertension, Memory Impairment, Myocardial Infarction ([place]), Osteoarthritis (OA), Prostate Disorder Additional Past Medical History / Comment(s): memory problems, indwelling cath x 1 month Last Myocardial Infarction Date:: unk History of Any Multi-Drug Resistant Organisms: None Reported Past Surgical History: Heart Catheterization, Orthopedic Surgery Additional Past Surgical History / Comment(s): right knee ligament repair, cataracts Past Anesthesia/Blood Transfusion Reactions: No Reported Reaction Past Psychological History: No Psychological Hx Reported Smoking Status: Former smoker Past Alcohol Use History: None Reported Additional Past Alcohol Use History / Comment(s): started smoking at age smoked 1.5 ppd quit 1973 Past Drug Use History: None Reported - Past Family History Father Additional Family Medical History / Comment(s): heart problems not sure what at age 73 Mother Family Medical History: Diabetes Mellitus Additional Family Medical History / Comment(s): at age 69 from complications from diabetes General Exam - General Exam Comments Initial Comments: Pleasant 86-year-old male. No acute distress. Limitations: physical limitation General appearance: alert, in no apparent distress Head exam: Present: atraumatic, normocephalic, normal inspection Eye exam: Present: normal appearance, PERRL, EOMI. Absent: scleral icterus, conjunctival injection, periorbital swelling ENT exam: Present: normal exam, mucous membranes moist Neck exam: Present: normal inspection. Absent: tenderness, meningismus, lymphadenopathy Respiratory exam: Present: normal lung sounds bilaterally. Absent: respiratory distress, wheezes, rales, rhonchi, stridor Cardiovascular Exam: Present: regular rate, normal rhythm, normal heart sounds. Absent: systolic murmur, diastolic murmur, rubs, gallop, clicks GI/Abdominal exam: Present: soft, tenderness (Suprapubic tenderness.), normal bowel sounds. Absent: distended, guarding, rebound, rigid Extremities exam: Present: normal inspection, full ROM, normal capillary refill. Absent: tenderness, pedal edema, joint swelling, calf tenderness Back exam: Present: normal inspection Neurological exam: Present: alert, oriented X3, CN II-XII intact Psychiatric exam: Present: normal affect, normal mood Skin exam: Present: warm, dry, intact, normal color. Absent: rash Course Vital Signs 02/24/17 02:01 Temperature 98.0 F Pulse Rate 82 Respiratory 18 Rate Blood Pressure 153/79 O2 Sat by Pulse 98 Oximetry Medical Decision Making - Medical Decision Making s an 86-year-old male presents emergency Department chief complaint of urinary retention for the past day. Patient is well-known to the emergency department for catheter problems. Patient reports that he is following up with a urologist tomorrow. He states that he had the catheter removed last week and was doing fine until today. Patient reports that he is feeling pain in his lower abdomen and his bladder feels distended. Patient reports the child multiple times that he is unable to. Patient is resting to emergency department hoping to have a catheter installed. Patient bladder scan revealed 100 mL. Patient is significantly tender over the suprapubic region. Corado catheter installed in approximately 700 mL of urine was drained. Patient will be leaving with the installed Corado catheter. Patient does have an appointment tomorrow with his urologist Dr. Davis. Patient agrees to follow-up with them and return if any worsening signs or symptoms occur. Disposition Clinical Impression: Urinary retention Disposition: HOME SELF-CARE Condition: Good Instructions: Urinary Retention in Men (ED) Additional Instructions: Follow-up tomorrow morning with urinary urologist. Return to emergency department if any alarming signs or symptoms occur. Referrals: None,Stated [Primary Care Provider] - 1-2 days Time of Disposition: 02:47
[2017-03-01] MEDS ORDERED: ACETAMINOPHEN TAB 325 MG TAB PO STA (06:33)
== END 2017-02-24 03:05 | disposition home or self-care (01) ==
LOC: EC 01:57
DX: R33.9 Retention of urine, unspecified (principal); N32.89 Other specified disorders of bladder; R10.30 Lower abdominal pain, unspecified; M19.90 Unspecified osteoarthritis, unspecified site; N42.9 Disorder of prostate, unspecified; I25.2 Old myocardial infarction; Z87.891 Personal history of nicotine dependence; Z79.82 Long term (current) use of aspirin; Z79.899 Other long term (current) drug therapy
CPT/HCPCS: 51702; 51798; 99284

== ENCOUNTER 2017-03-01 04:38 | Emergency (ER) | payer MEDICARE ==
[2017-03-01 06:04] LABS: Basophils % (A) 1 %; CH 29.4; CHCM 31.8; Eosinophils # (A) 0.5 k/uL (0-0.7); Eosinophils % (A) 10 %; HCT 37.7 % (39.0-53.0); HDW 2.45; HGB 12.2 gm/dL (13.0-17.5); Luc # (Auto) 0.11; Luc % (Auto) 2; Lymphocytes # (A) 0.8 k/uL (1.0-4.8); Lymphocytes % (A) 15 %; MCHC 32.4 g/dL (31.0-37.0); MCV 92.6 fL (80.0-100.0); Mean Platelet Volume 8.2; Monocytes # (A) 0.4 k/uL (0-1.0); Monocytes % (A) 7 %; Neutrophils # (A) 3.5 k/uL (1.3-7.7); Neutrophils % (A) 65 %; RBC 4.08 m/uL (4.30-5.90); RDW 15.2 % (11.5-15.5); WBC 5.4 k/uL (3.8-10.6)
[2017-03-01 06:16] LABS: ALT 28 U/L (21-72); AST 27 U/L (17-59); Alkaline Phosphatase 68 U/L (38-126); Anion Gap 10 mmol/L; Blood Urea Nitrogen 16 mg/dL (9-20); Calcium 8.7 mg/dL (8.4-10.2); Carbon Dioxide 24 mmol/L (22-30); Chloride 107 mmol/L (98-107); Glucose 116 mg/dL (74-99); Non-African American GFR(MDRD) >60 (>60 ml/min/1.73 sqM); Potassium 4.7 mmol/L (3.5-5.1); Sodium 141 mmol/L (137-145); Total Bilirubin 0.7 mg/dL (0.2-1.3); Total Protein 7.1 g/dL (6.3-8.2)
[2017-03-01] MEDS ORDERED: ACETAMINOPHEN TAB 325 MG TAB ONE (06:36)
--- NOTE | 2017-03-01 06:51 | XR ---
EXAM: XR Chest, 1 View CLINICAL HISTORY: Reason: inhalational exposure TECHNIQUE: Frontal view of the chest. COMPARISON: CXR 10/31/16 FINDINGS: Lungs: Bibasilar atelectasis with possible right lower lung hazy alveolar opacity. Pleural space: Unremarkable. No pneumothorax. Heart: Unremarkable. No cardiomegaly. Mediastinum: Unremarkable. Bones/joints: Unremarkable. Vasculature: Atherosclerotic changes of aorta. IMPRESSION: Bibasilar atelectasis with possible right lower lung hazy alveolar opacity.
[2017-03-01 07:25] VITALS: RESP 16
[2017-03-01 08:07] VITALS: BP 125/77; PULSE 60; TEMP 97.7
--- NOTE | 2017-03-01 08:10 | ED ---
Dizziness HPI - General Chief Complaint: Dizziness Stated Complaint: Dizziness Time Seen by Provider: 03/01/17 05:00 Source: patient Mode of arrival: wheelchair Limitations: no limitations - History of Present Illness Initial Comments: Patient is an 86-year-old man who presents to be evaluated because he is feeling "dizzy" and he suspects that this is related to the fact that he did use some bug spray in his dwelling and then had spent a period of time inside, when he should've probably adequately ventilated the place. The patient is denying dyspnea, cough, chest pain, diaphoresis, nausea or vomiting. MD Complaint: dizziness -: hour(s) Timing: gradual onset Description: off-balance Severity: moderate Improves With: remaining still Worsens With: other Associated Symptoms: denies other symptoms - Related Data Home Medications Medication Instructions Recorded Confirmed Aspirin 650 mg PO BID 08/31/16 03/01/17 Finasteride [Proscar] 5 mg PO DAILY 03/01/17 03/01/17 Tamsulosin HCl [Flomax] 0.4 mg PO DAILY 03/01/17 03/01/17 Allergies Allergy/AdvReac Type Severity Reaction Status Date / Time No Known Allergies Allergy Verified 03/01/17 12:05 Review of Systems ROS Statement: Those systems with pertinent positive or pertinent negative responses have been documented in the HPI. ROS Other: All systems not noted in ROS Statement are negative. Constitutional: Denies: fever, chills ENT: Denies: throat pain Respiratory: Denies: cough, dyspnea, wheezes, hemoptysis Cardiovascular: Denies: chest pain, orthopnea, syncope Gastrointestinal: Denies: abdominal pain, nausea, vomiting Musculoskeletal: Denies: back pain Skin: Denies: rash Past Medical History Past Medical History: Atrial Fibrillation, COPD, GERD/Reflux, Hypertension, Memory Impairment, Myocardial Infarction ([place]), Osteoarthritis (OA), Prostate Disorder Additional Past Medical History / Comment(s): memory problems, indwelling cath x 1 month Last Myocardial Infarction Date:: unk History of Any Multi-Drug Resistant Organisms: None Reported Past Surgical History: Heart Catheterization, Orthopedic Surgery Additional Past Surgical History / Comment(s): right knee ligament repair, cataracts Past Anesthesia/Blood Transfusion Reactions: No Reported Reaction Past Psychological History: No Psychological Hx Reported Smoking Status: Former smoker Past Alcohol Use History: None Reported Past Drug Use History: None Reported - Past Family History Father Additional Family Medical History / Comment(s): heart problems not sure what at age 73 Mother Family Medical History: Diabetes Mellitus Additional Family Medical History / Comment(s): at age 69 from complications from diabetes General Exam Limitations: no limitations General appearance: alert, in no apparent distress Head exam: Present: atraumatic, normocephalic Eye exam: Present: normal appearance. Absent: scleral icterus, conjunctival injection ENT exam: Present: normal oropharynx, mucous membranes moist Respiratory exam: Present: normal lung sounds bilaterally. Absent: respiratory distress, wheezes, rales, rhonchi, stridor Cardiovascular Exam: Present: regular rate, normal rhythm, normal heart sounds. Absent: systolic murmur, diastolic murmur, rubs, gallop GI/Abdominal exam: Present: soft. Absent: tenderness Extremities exam: Present: normal inspection, normal capillary refill Neurological exam: Present: alert, normal gait Psychiatric exam: Present: normal affect Skin exam: Present: warm, dry, intact, normal color. Absent: rash Course Vital Signs 03/01/17 03/01/17 03/01/17 04:46 05:50 07:25 Temperature 97.3 F L 97.6 F Pulse Rate 82 71 64 Respiratory 20 18 16 Rate Blood Pressure 117/82 139/76 120/71 O2 Sat by Pulse 94 L 94 L 99 Oximetry 03/01/17 08:06 Temperature 97.7 F Pulse Rate 60 Respiratory 16 Rate Blood Pressure 125/77 O2 Sat by Pulse 98 Oximetry Medical Decision Making - Medical Decision Making Patient is observed in the emergency Department and his symptoms resolved then he requested to go home. He is advised to adequately ventilate his dwelling before reentering. - Lab Data Result diagrams: 03/01/17 05:54 03/01/17 05:54 Lab Results 03/01/17 03/01/17 03/01/17 Range/Units 05:54 05:54 05:54 WBC 5.4 (3.8-10.6) k/uL RBC 4.08 L (4.30-5.90) m/uL Hgb 12.2 L (13.0-17.5) gm/dL Hct 37.7 L (39.0-53.0) % MCV 92.6 (80.0-100.0) fL MCH 30.0 (25.0-35.0) pg MCHC 32.4 (31.0-37.0) g/dL RDW 15.2 (11.5-15.5) % Plt Count 168 (150-450) k/uL Neutrophils % 65 % Lymphocytes % 15 % Monocytes % 7 % Eosinophils % 10 % Basophils % 1 % Neutrophils # 3.5 (1.3-7.7) k/uL Lymphocytes # 0.8 L (1.0-4.8) k/uL Monocytes # 0.4 (0-1.0) k/uL Eosinophils # 0.5 (0-0.7) k/uL Basophils # 0.0 (0-0.2) k/uL Sodium 141 (137-145) mmol/L Potassium 4.7 (3.5-5.1) mmol/L Chloride 107 (98-107) mmol/L Carbon Dioxide 24 (22-30) mmol/L Anion Gap 10 mmol/L BUN 16 (9-20) mg/dL Creatinine 0.82 (0.66-1.25) mg/dL Est GFR (MDRD) Af Amer >60 (>60 ml/min/1.73 sqM) Est GFR (MDRD) Non-Af >60 (>60 ml/min/1.73 sqM) Glucose 116 H (74-99) mg/dL Plasma Lactic Acid Luther 1.4 (0.7-2.0) mmol/L Calcium 8.7 (8.4-10.2) mg/dL Total Bilirubin 0.7 (0.2-1.3) mg/dL AST 27 (17-59) U/L ALT 28 (21-72) U/L Alkaline Phosphatase 68 (38-126) U/L Troponin I (0.000-0.034) ng/mL Total Protein 7.1 (6.3-8.2) g/dL Albumin 3.6 (3.5-5.0) g/dL 03/01/17 Range/Units 05:54 WBC (3.8-10.6) k/uL RBC (4.30-5.90) m/uL Hgb (13.0-17.5) gm/dL Hct (39.0-53.0) % MCV (80.0-100.0) fL MCH (25.0-35.0) pg MCHC (31.0-37.0) g/dL RDW (11.5-15.5) % Plt Count (150-450) k/uL Neutrophils % % Lymphocytes % % Monocytes % % Eosinophils % % Basophils % % Neutrophils # (1.3-7.7) k/uL Lymphocytes # (1.0-4.8) k/uL Monocytes # (0-1.0) k/uL Eosinophils # (0-0.7) k/uL Basophils # (0-0.2) k/uL Sodium (137-145) mmol/L Potassium (3.5-5.1) mmol/L Chloride (98-107) mmol/L Carbon Dioxide (22-30) mmol/L Anion Gap mmol/L BUN (9-20) mg/dL Creatinine (0.66-1.25) mg/dL Est GFR (MDRD) Af Amer (>60 ml/min/1.73 sqM) Est GFR (MDRD) Non-Af (>60 ml/min/1.73 sqM) Glucose (74-99) mg/dL Plasma Lactic Acid Luther (0.7-2.0) mmol/L Calcium (8.4-10.2) mg/dL Total Bilirubin (0.2-1.3) mg/dL AST (17-59) U/L ALT (21-72) U/L Alkaline Phosphatase (38-126) U/L Troponin I 0.033 (0.000-0.034) ng/mL Total Protein (6.3-8.2) g/dL Albumin (3.5-5.0) g/dL Disposition Clinical Impression: Exposure to chemical inhalation Disposition: HOME SELF-CARE Condition: Fair Instructions: Dizziness (ED) Referrals: None,Stated [Primary Care Provider] - 1-2 days
== END 2017-03-01 08:15 | disposition home or self-care (01) ==
LOC: EC 04:38
DX: T60.91XA Toxic effect of unspecified pesticide, accidental (unintentional), initial encounter (principal); R42 Dizziness and giddiness; N42.9 Disorder of prostate, unspecified; M19.90 Unspecified osteoarthritis, unspecified site; Z87.891 Personal history of nicotine dependence; Z79.82 Long term (current) use of aspirin; Z79.899 Other long term (current) drug therapy
CPT/HCPCS: 36415; 51702; 71010; 80053; 83605; 84484; 85025; 93005; 99283; 99284

== ENCOUNTER 2017-03-01 11:09 | Emergency (ER) | payer MEDICARE ==
[2017-03-01 11:24] VITALS: BP 115/64; PULSE 68; RESP 20; TEMP 99.4
--- NOTE | 2017-03-01 12:39 | ED ---
Recheck HPI - General Chief Complaint: Recheck/Abnormal Lab/Rx Stated Complaint: CATHETER PROBLEM Time Seen by Provider: 03/01/17 12:27 Source: patient, RN notes reviewed Mode of arrival: wheelchair Limitations: no limitations - History of Present Illness Initial Comments: 86-year-old male presents emergency Department with chief complaint of catheter leaking. Patient states she called on it and states that it started leaking. Patient states he is here this morning states it was not leaking. Patient states that he's had multiple rounds of the past. States urine is flowing well and is clear. Patient has fever or chills. - Related Data Home Medications Medication Instructions Recorded Confirmed Aspirin 650 mg PO BID 08/31/16 03/01/17 Finasteride [Proscar] 5 mg PO DAILY 03/01/17 03/01/17 Tamsulosin HCl [Flomax] 0.4 mg PO DAILY 03/01/17 03/01/17 Allergies Allergy/AdvReac Type Severity Reaction Status Date / Time No Known Allergies Allergy Verified 03/01/17 12:05 Review of Systems ROS Statement: Those systems with pertinent positive or pertinent negative responses have been documented in the HPI. ROS Other: All systems not noted in ROS Statement are negative. Past Medical History Past Medical History: Atrial Fibrillation, COPD, GERD/Reflux, Hypertension, Memory Impairment, Myocardial Infarction ([place]), Osteoarthritis (OA), Prostate Disorder Additional Past Medical History / Comment(s): memory problems, indwelling cath x 1 month Last Myocardial Infarction Date:: unk History of Any Multi-Drug Resistant Organisms: None Reported Past Surgical History: Heart Catheterization, Orthopedic Surgery Additional Past Surgical History / Comment(s): right knee ligament repair, cataracts Past Anesthesia/Blood Transfusion Reactions: No Reported Reaction Past Psychological History: No Psychological Hx Reported Smoking Status: Former smoker Past Alcohol Use History: None Reported Past Drug Use History: None Reported - Past Family History Father Additional Family Medical History / Comment(s): heart problems not sure what at age 73 Mother Family Medical History: Diabetes Mellitus Additional Family Medical History / Comment(s): at age 69 from complications from diabetes General Exam Limitations: no limitations General appearance: alert, in no apparent distress Head exam: Present: atraumatic, normocephalic, normal inspection Neck exam: Present: normal inspection. Absent: tenderness, meningismus, lymphadenopathy Respiratory exam: Present: normal lung sounds bilaterally. Absent: respiratory distress, wheezes, rales, rhonchi, stridor Cardiovascular Exam: Present: regular rate, normal rhythm, normal heart sounds. Absent: systolic murmur, diastolic murmur, rubs, gallop, clicks GI/Abdominal exam: Present: soft, normal bowel sounds. Absent: distended, tenderness, guarding, rebound, rigid exam: Present: other (Catheter in place there is no leading there is some urine noted around the catheter) Course Vital Signs 03/01/17 11:20 Temperature 99.4 F Pulse Rate 68 Respiratory 20 Rate Blood Pressure 115/64 O2 Sat by Pulse 96 Oximetry Medical Decision Making - Medical Decision Making 6-year-old male presented for catheter problem. His catheter was exchanged. Patient's tolerated well and there were no complications. Patient will be discharge. Disposition Clinical Impression: Urinary catheter change required, Complication of Corado catheter Disposition: HOME SELF-CARE Condition: Stable Instructions: [place] Catheter Placement and Care (ED) Additional Instructions: Please return to the Emergency Department if symptoms worsen or any other concerns. Referrals: None,Stated [Primary Care Provider] - 1-2 days Time of Disposition: 12:38
== END 2017-03-01 13:02 | disposition home or self-care (01) ==
LOC: EC 11:09
DX: T85.598A Other mechanical complication of other gastrointestinal prosthetic devices, implants and grafts, initial encounter (principal); M19.90 Unspecified osteoarthritis, unspecified site; N42.9 Disorder of prostate, unspecified; I25.2 Old myocardial infarction; Z87.891 Personal history of nicotine dependence; Z79.82 Long term (current) use of aspirin; Z79.899 Other long term (current) drug therapy; Y73.2 Prosthetic and other implants, materials and accessory gastroenterology and urology devices associated with adverse incidents; Y92.009 Unspecified place in unspecified non-institutional (private) residence as the place of occurrence of the external cause
CPT/HCPCS: 51702; 99283

== ENCOUNTER 2017-03-06 12:23 | Emergency (ER) | payer MEDICARE ==
[2017-03-06 12:32] VITALS: RESP 16; TEMP 98
[2017-03-06] MEDS ORDERED: ACETAMINOPHEN TAB 500 MG TAB PO STA (12:42)
--- NOTE | 2017-03-06 12:49 | ED ---
Headache HPI - General Chief Complaint: Headache Stated Complaint: Headache, high blood pressure Time Seen by Provider: 03/06/17 12:34 Mode of arrival: wheelchair Limitations: no limitations - History of Present Illness Initial Comments: 86 years old gentleman presented with a headache, it started this morning around 8 AM and headache is mostly located over the frontal sinuses. He denies any neck stiffness he denies any fever no chills he does have a cold for the last few days no blurred vision no chest pain or shortness of breath no sinus symptoms of TIA or CVA - Related Data Home Medications Medication Instructions Recorded Confirmed Aspirin 650 mg PO BID 08/31/16 03/06/17 Finasteride [Proscar] 5 mg PO DAILY 03/01/17 03/06/17 Tamsulosin HCl [Flomax] 0.4 mg PO DAILY 03/01/17 03/06/17 Allergies Allergy/AdvReac Type Severity Reaction Status Date / Time No Known Allergies Allergy Verified 03/06/17 13:06 Review of Systems ROS Statement: Those systems with pertinent positive or pertinent negative responses have been documented in the HPI. ROS Other: All systems not noted in ROS Statement are negative. Past Medical History Past Medical History: Atrial Fibrillation, COPD, GERD/Reflux, Hypertension, Memory Impairment, Myocardial Infarction ([place]), Osteoarthritis (OA), Prostate Disorder Additional Past Medical History / Comment(s): memory problems, indwelling cath x 1 month Last Myocardial Infarction Date:: unk History of Any Multi-Drug Resistant Organisms: None Reported Past Surgical History: Heart Catheterization, Orthopedic Surgery Additional Past Surgical History / Comment(s): right knee ligament repair, cataracts Past Anesthesia/Blood Transfusion Reactions: No Reported Reaction Past Psychological History: No Psychological Hx Reported Smoking Status: Former smoker Past Alcohol Use History: None Reported Past Drug Use History: None Reported - Past Family History Father Additional Family Medical History / Comment(s): heart problems not sure what at age 73 Mother Family Medical History: Diabetes Mellitus Additional Family Medical History / Comment(s): at age 69 from complications from diabetes General Exam - General Exam Comments Initial Comments: General: The patient is awake and alert, in no distress, and does not appear acutely ill. GCS is 15 Skin: Skin is warm and dry and no rashes or lesions are noted. Eye: Pupils are equal, round and reactive to light, extra-ocular movements are intact; there is normal conjunctiva bilaterally. Ears, nose, mouth and throat: There are moist mucous membranes and no oral lesions. Neck: The neck is supple, there is no tenderness or JVD. Cardiovascular: There is a regular rate and rhythm. No murmur, rub or gallop is appreciated. Respiratory: To auscultation bilateral, no wheezing no rhonchi no distress respiratory rogers noticed Gastrointestinal: Soft, non-distended, non-tender abdomen without masses or organomegaly noted. There is no rebound or guarding present. Bowel sounds are unremarkable. Back: There is no tenderness to palpation in the midline. There is no obvious deformity. Musculoskeletal: Normal ROM, no tenderness, There is no pedal edema. There is no calf tenderness or swelling. No cords were appreciated. Neurological: CN II-XII intact, Cranial nerves III through XII are intact. There are no obvious motor or sensory deficits. Coordination appears grossly intact. Speech is normal. Psychiatric: Cooperative, appropriate mood & affect, normal judgment. Limitations: no limitations Course Vital Signs 03/06/17 12:28 Temperature 98.0 F Pulse Rate 61 Respiratory 16 Rate Blood Pressure 137/85 O2 Sat by Pulse 98 Oximetry - Reevaluation(s) Reevaluation #1: 03/06/17 14:20 Patient reassessed at 1400, is pain-free, his head CT is normal and he be discharged to follow with his family doctor, he was advised to take Tylenol 1 g by mouth every 6 hours as needed Disposition Clinical Impression: Headache Disposition: HOME SELF-CARE Instructions: Acute Headache (ED) Referrals: None,Stated [Primary Care Provider] - 1-2 days
--- NOTE | 2017-03-06 13:13 | CT ---
EXAMINATION TYPE: CT brain wo con DATE OF EXAM: 03/06/2017 COMPARISON: Previous study dated 10/04/2014. HISTORY: [facility] CT DLP: 1027.5 mGycm Automated exposure control for dose reduction was used. FINDINGS: There are generalized changes of sulcal prominence and ventriculomegaly, compatible with atrophic lindsay nge. There is diffuse periventricular white matter lucency, compatible with chronic white matter isch emic change. There is minor physiologic calcification of the basal ganglia. There is no mass effect, midline shift or intracranial blood. There is a chronic blowout fracture of the left orbit containing fat only. There is no evidence of mu scular entrapment. The paranasal sinuses and mastoids are clear. IMPRESSION: 1. NO ACUTE INTRACRANIAL ABNORMALITY. 2. ATROPHIC CHANGE. 3. CHRONIC WHITE MATTER ISCHEMIC CHANGE. 4. 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
[2017-03-06 14:26] VITALS: BP 133/85; PULSE 66
== END 2017-03-06 14:27 | disposition home or self-care (01) ==
LOC: EC 12:23
DX: R51 Headache (principal); R40.2410 Glasgow coma scale score 13-15, unspecified time; M19.90 Unspecified osteoarthritis, unspecified site; N42.9 Disorder of prostate, unspecified; I25.2 Old myocardial infarction; Z87.891 Personal history of nicotine dependence; Z79.82 Long term (current) use of aspirin; Z79.899 Other long term (current) drug therapy
CPT/HCPCS: 70450; 99284

== ENCOUNTER 2017-03-10 12:40 | Emergency (ER) | payer MEDICARE ==
[2017-03-10 12:48] VITALS: RESP 18
--- NOTE | 2017-03-10 13:17 | ED ---
General Adult HPI - General Chief complaint: Urogenital Stated complaint: Blood in urine Time Seen by Provider: 03/10/17 12:53 Source: patient, RN notes reviewed, old records reviewed Mode of arrival: wheelchair Limitations: no limitations - History of Present Illness Initial comments: 86-year-old male presents to the emergency department with bleeding around his Gamino catheter insertion site. Patient denies any specific trauma. He does report some mild pain. He states he's had this many times in the past. The most recent catheter was placed on February 24 in the emergency department for urinary retention. Patient does follow with urology as an outpatient. Denies fever or chills. Denies chest pain or shortness of breath. He is on aspirin daily. Denies any anticoagulation. - Related Data Home Medications Medication Instructions Recorded Confirmed Aspirin 650 mg PO BID 08/31/16 03/06/17 Finasteride [Proscar] 5 mg PO DAILY 03/01/17 03/06/17 Tamsulosin HCl [Flomax] 0.4 mg PO DAILY 03/01/17 03/06/17 Allergies Allergy/AdvReac Type Severity Reaction Status Date / Time No Known Allergies Allergy Verified 03/10/17 13:18 Review of Systems ROS Statement: Those systems with pertinent positive or pertinent negative responses have been documented in the HPI. ROS Other: All systems not noted in ROS Statement are negative. Constitutional: Denies: fever, chills Gastrointestinal: Denies: abdominal pain Genitourinary: Denies: urgency, dysuria, frequency Past Medical History Past Medical History: Atrial Fibrillation, COPD, GERD/Reflux, Hypertension, Memory Impairment, Myocardial Infarction ([place]), Osteoarthritis (OA), Prostate Disorder Additional Past Medical History / Comment(s): memory problems, indwelling cath x 1 month Last Myocardial Infarction Date:: unk History of Any Multi-Drug Resistant Organisms: None Reported Past Surgical History: Heart Catheterization, Orthopedic Surgery Additional Past Surgical History / Comment(s): right knee ligament repair, cataracts Past Anesthesia/Blood Transfusion Reactions: No Reported Reaction Past Psychological History: No Psychological Hx Reported Smoking Status: Former smoker Past Alcohol Use History: None Reported Past Drug Use History: None Reported - Past Family History Father Additional Family Medical History / Comment(s): heart problems not sure what at age 73 Mother Family Medical History: Diabetes Mellitus Additional Family Medical History / Comment(s): at age 69 from complications from diabetes General Exam Limitations: no limitations General appearance: alert, in no apparent distress Head exam: Present: atraumatic, normocephalic Eye exam: Present: PERRL, EOMI ENT exam: Present: mucous membranes dry Neck exam: Present: normal inspection Respiratory exam: Present: normal lung sounds bilaterally Cardiovascular Exam: Present: regular rate, irregular rhythm GI/Abdominal exam: Present: soft. Absent: distended, tenderness, guarding, rebound exam: Present: other (Patient has small amount of dried blood at the urethral meatus. He has a 16-Surinamese Gamino catheter inserted. No active hemorrhage. Foreskin is able to be retracted, no phimosis or paraphimosis.) External exam: Absent: erythema, swelling Extremities exam: Present: pedal edema Neurological exam: Present: alert, oriented X3 Psychiatric exam: Present: normal affect, normal mood Skin exam: Present: warm, dry Course Vital Signs 03/10/17 12:46 Temperature 98.0 F Pulse Rate 76 Respiratory 18 Rate Blood Pressure 125/79 O2 Sat by Pulse 97 Oximetry Medical Decision Making - Medical Decision Making 86-year-old male presenting with bleeding from his urinary catheter insertion site. Catheter inserted for urinary retention. On examination there is small amount of dried blood at the urethral meatus. No suprapubic fullness or tenderness. No fever, stable vitals. Patient states he's had this many times in the past. It is associated with some minor pain. Patient follows with urology as an outpatient. 16 Sur[place]amese gamino catheter is exchanged. Patient tolerated procedure well. Patient is instructed to return to the emergency department with significant bleeding, or inability to pass urine. Patient will follow-up with urology as an outpatient in the next several days. Diagnosis: Minor bleeding from Gamino catheter insertion site. Disposition Clinical Impression: Benign prostatic hypertrophy with urinary retention Disposition: HOME SELF-CARE Condition: Stable Instructions: Urinary Retention in Men (ED) Additional Instructions: Patient should return to the emergency department with significant bleeding from the catheter site or inability to pass urine. Referrals: None,Stated [Primary Care Provider] - 1-2 days Logan Hess MD [STAFF PHYSICIAN] - 1-2 days Time of Disposition: 13:17
[2017-03-10 14:05] VITALS: BP 165/76; PULSE 65; TEMP 97.4
== END 2017-03-10 14:03 | disposition home or self-care (01) ==
LOC: EC 12:40
DX: T83.83XA Hemorrhage due to genitourinary prosthetic devices, implants and grafts, initial encounter (principal); N40.1 Benign prostatic hyperplasia with lower urinary tract symptoms; R33.8 Other retention of urine; M19.90 Unspecified osteoarthritis, unspecified site; Z87.891 Personal history of nicotine dependence; Z79.82 Long term (current) use of aspirin; Z79.899 Other long term (current) drug therapy
CPT/HCPCS: 51702; 99283

== ENCOUNTER 2017-03-17 19:35 | Emergency (ER) | payer MEDICARE ==
[2017-03-17 19:52] VITALS: RESP 18
--- NOTE | 2017-03-17 20:14 | ED ---
Male Urogenital HPI - General Chief complaint: Urogenital Stated complaint: catheter problems Time Seen by Provider: 03/17/17 19:55 Source: patient, RN notes reviewed Mode of arrival: ambulatory Limitations: no limitations - History of Present Illness Initial comments: Patient is 86-year-old male presents to the emergency room for evaluation. Patient states that he has had a gamino catheter placed for the past 3 months due to urinary retention. Patient states that he sees Dr. Hess. Patient states over the past 2 days, the gamino catheter has been leaking. Patient states he needs his catheter replaced. Patient denies any pain. Patient denies fevers or chills. Patient denies nausea or vomiting. - Related Data Home Medications Medication Instructions Recorded Confirmed Aspirin 650 mg PO BID 08/31/16 03/17/17 Finasteride [Proscar] 5 mg PO DAILY 03/01/17 03/17/17 Tamsulosin HCl [Flomax] 0.4 mg PO BID 03/01/17 03/17/17 Previous Rx's Medication Instructions Recorded Levofloxacin [Levaquin] 750 mg PO DAILY #6 tab 03/17/17 Allergies Allergy/AdvReac Type Severity Reaction Status Date / Time No Known Allergies Allergy Verified 03/17/17 19:52 Review of Systems ROS Statement: Those systems with pertinent positive or pertinent negative responses have been documented in the HPI. ROS Other: All systems not noted in ROS Statement are negative. Past Medical History Past Medical History: Atrial Fibrillation, COPD, GERD/Reflux, Hypertension, Memory Impairment, Myocardial Infarction ([place]), Osteoarthritis ([place]), Prostate Disorder Additional Past Medical History / Comment(s): memory problems, indwelling cath x 1 month Last Myocardial Infarction Date:: unk History of Any Multi-Drug Resistant Organisms: None Reported Past Surgical History: Heart Catheterization, Orthopedic Surgery Additional Past Surgical History / Comment(s): right knee ligament repair, cataracts Past Anesthesia/Blood Transfusion Reactions: No Reported Reaction Past Psychological History: No Psychological Hx Reported Smoking Status: Former smoker Past Alcohol Use History: None Reported Past Drug Use History: None Reported - Past Family History Father Additional Family Medical History / Comment(s): heart problems not sure what at age 73 Mother Family Medical History: Diabetes Mellitus Additional Family Medical History / Comment(s): at age 69 from complications from diabetes General Exam - General Exam Comments Initial Comments: laying in exam room, no acute distress. Limitations: no limitations General appearance: alert, in no apparent distress Head exam: Present: atraumatic, normocephalic, normal inspection Eye exam: Present: normal appearance ENT exam: Present: normal exam Neck exam: Present: normal inspection Respiratory exam: Present: normal lung sounds bilaterally. Absent: respiratory distress Cardiovascular Exam: Present: regular rate, normal rhythm, normal heart sounds exam: Present: other (gamino catheter in place, small amount of leakage from meatus). Absent: testicular tenderness Extremities exam: Present: normal inspection Back exam: Present: normal inspection Neurological exam: Present: alert, oriented X3, CN II-XII intact, normal gait Psychiatric exam: Present: normal affect, normal mood Skin exam: Present: warm, dry, intact, normal color. Absent: rash Course Vital Signs 03/17/17 03/17/17 19:49 21:34 Temperature 99 F 98.4 F Pulse Rate 53 L 68 Respiratory 18 18 Rate Blood Pressure 130/59 131/77 O2 Sat by Pulse 96 96 Oximetry Medical Decision Making - Medical Decision Making Patient is a 86-year-old male presents emergency room for evaluation of leaking Gamino catheter. Gamino catheter was replaced. Urinalysis suspicious for urinary tract infection. Patient be placed on Levaquin. Advised patient to follow-up with his urologist. Patient states he understands everything that was discussed with him. Return parameters discussed. Case discussed Dr. Charles. - Lab Data Lab Results 03/17/17 Range/Units 20:45 Urine Color Yellow Urine Appearance Cloudy (Clear) Urine pH 5.5 (5.0-8.0) Ur Specific [place] 1.019 (1.001-1.035) Urine Protein 2+ H (Negative) Urine Glucose (UA) Negative (Negative) Urine Ketones Negative (Negative) Urine Blood Moderate H (Negative) Urine Nitrite Positive (Negative) Urine Bilirubin Negative (Negative) Urine Urobilinogen <2.0 (<2.0) mg/dL Ur Leukocyte Esterase Large H (Negative) Urine RBC 164 H (0-5) /hpf Urine WBC 52 H (0-5) /hpf Amorphous Sediment Occasional H (None) /hpf Urine Bacteria Many H (None) /hpf Hyaline Casts 5 H (0-2) /lpf Urine Mucus Occasional H (None) /hpf Disposition Clinical Impression: Gamino catheter problem, Urinary tract infection Disposition: HOME SELF-CARE Condition: Good Instructions: Urinary Tract Infection in Men (ED), Gamino Catheter Placement and Care (ED) Additional Instructions: Take antibiotics as directed. Please follow-up with urologist. If any new symptom arises or symptoms worsen, return to ER as soon as possible. Prescriptions: Levofloxacin [Levaquin] 750 mg PO DAILY #6 tab Referrals: None,Stated [Primary Care Provider] - 1-2 days Time of Disposition: 21:13
[2017-03-17 20:59] LABS: Amorphous Sediment,Urine Occasional /hpf; Appearance,Urine Cloudy (Clear); Bacteria,Urine Many /hpf; Bilirubin,Urine Negative (Negative); Glucose,Urine (UA) Negative (Negative); Ketones,Urine Negative (Negative); Leukocyte Esterase,Urine Large (Negative); Mucus,Urine Occasional /hpf; Nitrite,Urine Positive (Negative); PH, Urine 5.5 (5.0-8.0); Particle Count 21450; Protein,Urine 2+ (Negative); RBC,Urine 164 /hpf (0-5); Specific Gravity,Urine 1.019 (1.001-1.035); UA Billing (MACRO vs. MICRO) MICRO; Urobilinogen,Urine <2.0 mg/dL (<2.0); WBC,Urine 52 /hpf (0-5)
[2017-03-17] MEDS ORDERED: LEVOFLOXACIN 750 MG TAB PO STA (21:12)
[2017-03-17 21:35] VITALS: BP 131/77; PULSE 68; TEMP 98.4
== END 2017-03-17 21:34 | disposition home or self-care (01) ==
LOC: EC 19:35
DX: T83.038A Leakage of other urinary catheter, initial encounter (principal); N39.0 Urinary tract infection, site not specified; M19.90 Unspecified osteoarthritis, unspecified site; I25.2 Old myocardial infarction; Z87.891 Personal history of nicotine dependence; Z79.82 Long term (current) use of aspirin; Z79.899 Other long term (current) drug therapy
CPT/HCPCS: 51702; 81001; 87086; 99283

== ENCOUNTER 2017-03-20 20:05 | Emergency (ER) | payer MEDICARE ==
[2017-03-20 20:12] VITALS: RESP 18
--- NOTE | 2017-03-20 20:46 | ED ---
Extremity Problem HPI - General Chief complaint: Extremity Problem,Nontraumatic Stated complaint: Ankle Swelling Time Seen by Provider: 03/20/17 20:22 Source: patient, RN notes reviewed Mode of arrival: wheelchair Limitations: no limitations - History of Present Illness Initial comments: 86-year-old male presents emergency Department chief complaint bilateral lower extremity swelling, ankle pain 2 days. Patient states that he fell he would just go away but states that hasn't. Patient states his ankle are painful secondary to swelling. Denies any redness or warmth. Patient denies any trauma. Patient states she has no history of CHF and no kidney disease. Patient states she's had no fever no chills. Patient states he believes he may have had a clot in the past but is not exactly sure where. Patient states that he did try some elevation but only tried this for a short period of time. - Related Data Home Medications Medication Instructions Recorded Confirmed Aspirin 650 mg PO BID 08/31/16 03/17/17 Finasteride [Proscar] 5 mg PO DAILY 03/01/17 03/17/17 Tamsulosin HCl [Flomax] 0.4 mg PO BID 03/01/17 03/17/17 Previous Rx's Medication Instructions Recorded Levofloxacin [Levaquin] 750 mg PO DAILY #6 tab 03/17/17 Furosemide [Lasix] 20 mg PO DAILY #5 tab 03/20/17 Allergies Allergy/AdvReac Type Severity Reaction Status Date / Time No Known Allergies Allergy Verified 03/20/17 20:11 Review of Systems ROS Statement: Those systems with pertinent positive or pertinent negative responses have been documented in the HPI. ROS Other: All systems not noted in ROS Statement are negative. Past Medical History Past Medical History: Atrial Fibrillation, COPD, GERD/Reflux, Hypertension, Memory Impairment, Myocardial Infarction ([place]), Osteoarthritis ([place]), Prostate Disorder Additional Past Medical History / Comment(s): memory problems, indwelling cath x 1 month Last Myocardial Infarction Date:: unk History of Any Multi-Drug Resistant Organisms: None Reported Past Surgical History: Heart Catheterization, Orthopedic Surgery Additional Past Surgical History / Comment(s): right knee ligament repair, cataracts Past Anesthesia/Blood Transfusion Reactions: No Reported Reaction Past Psychological History: No Psychological Hx Reported Smoking Status: Former smoker Past Alcohol Use History: None Reported Past Drug Use History: None Reported - Past Family History Father Additional Family Medical History / Comment(s): heart problems not sure what at age 73 Mother Family Medical History: Diabetes Mellitus Additional Family Medical History / Comment(s): at age 69 from complications from diabetes General Exam Limitations: no limitations General appearance: alert, in no apparent distress Neck exam: Present: normal inspection, full ROM. Absent: tenderness, meningismus, lymphadenopathy Respiratory exam: Present: normal lung sounds bilaterally. Absent: respiratory distress, wheezes, rales, rhonchi, stridor Cardiovascular Exam: Present: regular rate, normal rhythm, normal heart sounds. Absent: systolic murmur, diastolic murmur, rubs, gallop, clicks Extremities exam: Present: pedal edema, other (Bilateral lower extremity edema noted primarily superior to the ankles this is 2+ pupils are equal bilaterally + 2 there is no obvious deformity no erythema no warmth there is no open lesions or sores.() Skin exam: Present: warm, dry, intact, normal color. Absent: rash Course Vital Signs 03/20/17 03/20/17 20:09 20:25 Temperature 98.0 F Pulse Rate 80 65 Respiratory 18 18 Rate Blood Pressure 143/91 112/69 O2 Sat by Pulse 96 95 Oximetry Medical Decision Making - Medical Decision Making 86-year-old male present emergency from for lower shunted swelling. Recent lab work does not reveal any evidence of CHF, kidney dysfunction. Patient we placed on Lasix at this time for 5 days 20 mg. Patient's potassium is 4.5. Patient is advised follow-up with primary care physician on Wednesday. Patient again denies chest pain, shortness breath, orthopnea. He states he does not have a history of CHF. - Lab Data Result diagrams: 03/20/17 20:38 03/20/17 20:38 Lab Results 03/20/17 03/20/17 03/20/17 Range/Units 20:38 20:38 20:38 WBC 5.9 (3.8-10.6) k/uL RBC 3.90 L (4.30-5.90) m/uL Hgb 12.0 L (13.0-17.5) gm/dL Hct 36.2 L (39.0-53.0) % MCV 92.7 (80.0-100.0) fL MCH 30.9 (25.0-35.0) pg MCHC 33.3 (31.0-37.0) g/dL RDW 15.9 H (11.5-15.5) % Plt Count 157 (150-450) k/uL Neutrophils % 66 % Lymphocytes % 16 % Monocytes % 8 % Eosinophils % 8 % Basophils % 0 % Neutrophils # 3.9 (1.3-7.7) k/uL Lymphocytes # 0.9 L (1.0-4.8) k/uL Monocytes # 0.5 (0-1.0) k/uL Eosinophils # 0.5 (0-0.7) k/uL Basophils # 0.0 (0-0.2) k/uL Sodium 141 (137-145) mmol/L Potassium 4.5 (3.5-5.1) mmol/L Chloride 107 (98-107) mmol/L Carbon Dioxide 25 (22-30) mmol/L Anion Gap 9 mmol/L BUN 18 (9-20) mg/dL Creatinine 1.00 (0.66-1.25) mg/dL Est GFR (MDRD) Af Amer >60 (>60 ml/min/1.73 sqM) Est GFR (MDRD) Non-Af >60 (>60 ml/min/1.73 sqM) Glucose 94 (74-99) mg/dL Calcium 9.0 (8.4-10.2) mg/dL NT-Pro-B Natriuret Pep 1040 pg/mL Disposition Clinical Impression: Pedal edema Disposition: HOME SELF-CARE Condition: Stable Instructions: Leg Edema (ED) Additional Instructions: Please return to the Emergency Department if symptoms worsen or any other concerns. Prescriptions: Furosemide [Lasix] 20 mg PO DAILY #5 tab Referrals: None,Stated [Primary Care Provider] - 1-2 days Time of Disposition: 22:23
[2017-03-20 20:47] LABS: Basophils % (A) 0 %; CH 29.7; CHCM 32.1; Eosinophils # (A) 0.5 k/uL (0-0.7); Eosinophils % (A) 8 %; HCT 36.2 % (39.0-53.0); HDW 2.31; Luc # (Auto) 0.12; Luc % (Auto) 2; Lymphocytes # (A) 0.9 k/uL (1.0-4.8); Lymphocytes % (A) 16 %; MCH 30.9 pg (25.0-35.0); MCHC 33.3 g/dL (31.0-37.0); MCV 92.7 fL (80.0-100.0); Mean Platelet Volume 8.2; Monocytes # (A) 0.5 k/uL (0-1.0); Monocytes % (A) 8 %; Neutrophils # (A) 3.9 k/uL (1.3-7.7); Neutrophils % (A) 66 %; RDW 15.9 % (11.5-15.5); WBC 5.9 k/uL (3.8-10.6); WBC (Perox) 5.82
[2017-03-20 20:55] LABS: Anion Gap 9 mmol/L; Blood Urea Nitrogen 18 mg/dL (9-20); Carbon Dioxide 25 mmol/L (22-30); Chloride 107 mmol/L (98-107); Glucose 94 mg/dL (74-99); Non-African American GFR(MDRD) >60 (>60 ml/min/1.73 sqM); Potassium 4.5 mmol/L (3.5-5.1); Sodium 141 mmol/L (137-145)
--- NOTE | 2017-03-20 21:56 | US ---
EXAMINATION TYPE: US venous doppler duplex LE BI DATE OF EXAM: 03/20/2017 9:40 PM COMPARISON: NONE CLINICAL HISTORY: 86-year-old male with bilateral lower extremity swelling and pain. SIDE PERFORMED: Bilateral TECHNIQUE: The lower extremity deep venous system is examined utilizing real time linear array sonog bela with graded compression, doppler sonography and color-flow sonography. FINDINGS: VESSELS IMAGED: External Iliac Vein (EIV) Common Femoral Vein Deep Femoral Vein Greater Saphenous Vein * Femoral Vein Popliteal Vein Small Saphenous Vein * Proximal Calf Veins (* superficial vessels) Right Leg: Negative for DVT Left Leg: Negative for DVT IMPRESSION: No evidence for DVT within the bilateral lower extremities imaged from the groin to the upper calves.
[2017-03-20 22:39] VITALS: BP 149/87; PULSE 71; TEMP 97.2
== END 2017-03-20 22:39 | disposition home or self-care (01) ==
LOC: EC 20:05
DX: R60.0 Localized edema (principal); I25.2 Old myocardial infarction; M19.90 Unspecified osteoarthritis, unspecified site; Z87.891 Personal history of nicotine dependence; Z79.899 Other long term (current) drug therapy
CPT/HCPCS: 36415; 80048; 83880; 85025; 93970; 99284

== ENCOUNTER 2017-03-28 00:56 | Emergency (ER) | payer MEDICARE ==
--- NOTE | 2017-03-28 01:34 | ED ---
Male Urogenital HPI - General Chief complaint: Urogenital Stated complaint: catheter problems Time Seen by Provider: 03/28/17 01:07 Source: patient, RN notes reviewed Mode of arrival: wheelchair Limitations: no limitations - History of Present Illness Initial comments: 86-year-old male present emergency department for leaking catheter. Patient states that he's had this latest Corado catheter for the last 2 months. Patient states it seems to be very clogged in leaking. Patient has no abdominal pain denies fever, chills, flank pain. Patient states he is scheduled I removed on Wednesday though. - Related Data Home Medications Medication Instructions Recorded Confirmed Aspirin 650 mg PO BID 08/31/16 03/28/17 Finasteride [Proscar] 5 mg PO DAILY 03/01/17 03/28/17 Tamsulosin HCl [Flomax] 0.4 mg PO BID 03/01/17 03/28/17 Previous Rx's Medication Instructions Recorded Levofloxacin [Levaquin] 750 mg PO DAILY #6 tab 03/17/17 Furosemide [Lasix] 20 mg PO DAILY #5 tab 03/20/17 Ciprofloxacin HCl [Cipro] 500 mg PO Q12HR #14 tablet 03/28/17 Allergies Allergy/AdvReac Type Severity Reaction Status Date / Time No Known Allergies Allergy Verified 03/28/17 01:05 Review of Systems ROS Statement: Those systems with pertinent positive or pertinent negative responses have been documented in the HPI. ROS Other: All systems not noted in ROS Statement are negative. Past Medical History Past Medical History: Atrial Fibrillation, COPD, GERD/Reflux, Hypertension, Memory Impairment, Myocardial Infarction ([place]), Osteoarthritis (OA), Prostate Disorder Additional Past Medical History / Comment(s): memory problems, indwelling cath x 1 month Last Myocardial Infarction Date:: unk History of Any Multi-Drug Resistant Organisms: None Reported Past Surgical History: Heart Catheterization, Orthopedic Surgery Additional Past Surgical History / Comment(s): right knee ligament repair, cataracts Past Anesthesia/Blood Transfusion Reactions: No Reported Reaction Past Psychological History: No Psychological Hx Reported Smoking Status: Former smoker Past Alcohol Use History: None Reported Past Drug Use History: None Reported - Past Family History Father Additional Family Medical History / Comment(s): heart problems not sure what at age 73 Mother Family Medical History: Diabetes Mellitus Additional Family Medical History / Comment(s): at age 69 from complications from diabetes General Exam Limitations: no limitations General appearance: alert, in no apparent distress Respiratory exam: Present: normal lung sounds bilaterally. Absent: respiratory distress, wheezes, rales, rhonchi, stridor Cardiovascular Exam: Present: regular rate, normal rhythm, normal heart sounds. Absent: systolic murmur, diastolic murmur, rubs, gallop, clicks GI/Abdominal exam: Present: soft, normal bowel sounds. Absent: distended, tenderness, guarding, rebound, rigid exam: Absent: normal inspection (Corado catheter in place no obvious drainage) Back exam: Absent: CVA tenderness (R), CVA tenderness (L) Course Vital Signs 03/28/17 01:02 Temperature 97.6 F Pulse Rate 79 Respiratory 18 Rate Blood Pressure 137/74 O2 Sat by Pulse 98 Oximetry Medical Decision Making - Medical Decision Making 86-year-old male presented for leaking catheter. Patient's catheter was replaced with no complications. Patient appears to have urinary tract infection. Patient was placed on antibiotics. Return parameters were discussed. - Lab Data Lab Results 03/28/17 Range/Units 01:26 Urine Color Yellow Urine Appearance Clear (Clear) Urine pH 5.5 (5.0-8.0) Ur Specific [place] 1.016 (1.001-1.035) Urine Protein 1+ H (Negative) Urine Glucose (UA) Negative (Negative) Urine Ketones Negative (Negative) Urine Blood Moderate H (Negative) Urine Nitrite Negative (Negative) Urine Bilirubin Negative (Negative) Urine Urobilinogen <2.0 (<2.0) mg/dL Ur Leukocyte Esterase Large H (Negative) Urine RBC 36 H (0-5) /hpf Urine WBC 35 H (0-5) /hpf Ur Squamous Epith Cells <1 (0-4) /hpf Urine Bacteria Rare H (None) /hpf Hyaline Casts 3 H (0-2) /lpf Urine Mucus Rare H (None) /hpf Disposition Clinical Impression: Urinary tract infection, Complication of Corado catheter Disposition: HOME SELF-CARE Condition: Stable Instructions: Urinary Tract Infection in Men (ED) Additional Instructions: Please return to the Emergency Department if symptoms worsen or any other concerns. Prescriptions: Ciprofloxacin HCl [Cipro] 500 mg PO Q12HR #14 tablet Referrals: None,Stated [Primary Care Provider] - 1-2 days Time of Disposition: 02:22
[2017-03-28 01:45] LABS: Appearance,Urine Clear (Clear); Bacteria,Urine Rare /hpf; Bilirubin,Urine Negative (Negative); Glucose,Urine (UA) Negative (Negative); Ketones,Urine Negative (Negative); Leukocyte Esterase,Urine Large (Negative); Mucus,Urine Rare /hpf; Nitrite,Urine Negative (Negative); PH, Urine 5.5 (5.0-8.0); Particle Count 23143; Protein,Urine 1+ (Negative); RBC,Urine 36 /hpf (0-5); Specific Gravity,Urine 1.016 (1.001-1.035); Squamous Epithelial Cell,Urine <1 /hpf (0-4); UA Billing (MACRO vs. MICRO) MICRO; Urobilinogen,Urine <2.0 mg/dL (<2.0); WBC,Urine 35 /hpf (0-5)
[2017-03-28] MEDS ORDERED: LEVOFLOXACIN 500 MG TAB PO STA (02:20)
[2017-03-28 02:30] VITALS: BP 115/62; PULSE 70; RESP 16; TEMP 97.5
== END 2017-03-28 02:33 | disposition home or self-care (01) ==
LOC: EC 00:56
DX: T83.031A Leakage of indwelling urethral catheter, initial encounter (principal); N39.0 Urinary tract infection, site not specified; I25.2 Old myocardial infarction; M19.90 Unspecified osteoarthritis, unspecified site; Z87.891 Personal history of nicotine dependence; Z79.82 Long term (current) use of aspirin; Z79.899 Other long term (current) drug therapy
CPT/HCPCS: 51702; 81001; 87086; 99283

== ENCOUNTER 2017-03-30 13:24 | Emergency (ER) | payer MEDICARE ==
--- NOTE | 2017-03-30 14:49 | ED ---
Male Urogenital HPI - General Chief complaint: Urogenital Stated complaint: Catheter Issues Time Seen by Provider: 03/30/17 13:38 Source: patient Mode of arrival: ambulatory Limitations: no limitations - History of Present Illness Initial comments: This 86-year-old -[place] male presents with the complaint of having some urine leaking around his Corado catheter. He was just here 2 days ago and had his Corado catheter changed. He states that he is getting some urine in his Corado catheter but some is leaking out as well. He's had chronic similar problems in the past. He has not followed up with his urologist recently. Records from 2 days ago state that he was saying that he was having the catheter out on Wednesday which would've been yesterday. He is now saying that he has a catheter plan to come out next Wednesday. Follow-up with urology is questionable. He also had a urinary tract infection and is placed on antibiotics for which he states that he has been taking. He denies any abdominal pain. No other complaints or modifying factors. - Related Data Home Medications Medication Instructions Recorded Confirmed Aspirin 650 mg PO BID 08/31/16 03/30/17 Finasteride [Proscar] 5 mg PO DAILY 03/01/17 03/30/17 Tamsulosin HCl [Flomax] 0.4 mg PO BID 03/01/17 03/30/17 Previous Rx's Medication Instructions Recorded Furosemide [Lasix] 20 mg PO DAILY #5 tab 03/20/17 Ciprofloxacin HCl [Cipro] 500 mg PO Q12HR #14 tablet 03/28/17 Allergies Allergy/AdvReac Type Severity Reaction Status Date / Time No Known Allergies Allergy Verified 03/30/17 13:30 Review of Systems ROS Statement: Those systems with pertinent positive or pertinent negative responses have been documented in the HPI. ROS Other: All systems not noted in ROS Statement are negative. Past Medical History Past Medical History: Atrial Fibrillation, COPD, GERD/Reflux, Hypertension, Memory Impairment, Myocardial Infarction ([place]), Osteoarthritis (OA), Prostate Disorder Additional Past Medical History / Comment(s): memory problems, indwelling cath x 1 month Last Myocardial Infarction Date:: unk History of Any Multi-Drug Resistant Organisms: None Reported Past Surgical History: Heart Catheterization, Orthopedic Surgery Additional Past Surgical History / Comment(s): right knee ligament repair, cataracts Past Anesthesia/Blood Transfusion Reactions: No Reported Reaction Past Psychological History: No Psychological Hx Reported Smoking Status: Former smoker Past Alcohol Use History: None Reported Past Drug Use History: None Reported - Past Family History Father Additional Family Medical History / Comment(s): heart problems not sure what at age 73 Mother Family Medical History: Diabetes Mellitus Additional Family Medical History / Comment(s): at age 69 from complications from diabetes General Exam - General Exam Comments Initial Comments: GENERAL: The patient is well nourished and well hydrated. VITAL SIGNS: Heart rate, blood pressure, respiratory rate reviewed as recorded in nurse's notes. EYES: Pupils are round and reactive. Extraocular movements are intact. No conjunctival / lid redness or swelling. ENT: No external evidence of injury, swelling, or ecchymosis. Airway is patent. Throat is clear. NECK: Nontender. No swelling or evidence of injury. No subcutaneous emphysema. Trachea is midline. No thyroid mass. HEART: Regular rate and rhythm. Good peripheral pulses. LUNGS/CHEST: Breath sounds clear and equal bilaterally. No rales, rhonchi, or wheezes. No ecchymosis, subcutaneous emphysema, or tenderness. ABDOMEN: Abdomen soft without tenderness. No palpable masses or organomegaly. No peritoneal signs. No abdominal wall swelling or ecchymosis. Genitourinary: There is no leaking of urine around the current indwelling Corado catheter. EXTREMITIES: No extremity tenderness. Normal muscle tone and function. No thoracolumbar tenderness. NEUROLOGIC: Sensation is grossly intact. Cranial nerve exam reveals face is symmetrical, tongue is midline, speech is clear. SKIN: No abrasions or ecchymosis is noted. No induration or masses noted. PSYCHIATRIC: Alert and oriented. Appropriate behavior and judgment. Limitations: no limitations Course Vital Signs 03/30/17 13:28 Temperature 97.6 F Pulse Rate 90 Respiratory 20 Rate Blood Pressure 141/65 O2 Sat by Pulse 95 Oximetry Medical Decision Making - Medical Decision Making the patient was seen and examined. Old records were reviewed. The Corado catheter is flushed. Appears to be draining quite well. No further urine extravasation is identified. The balloon is blown up approximately 2 mL more in case there was some leakage due to this not being inflated enough. It is felt as though he is stable for discharge and leaves in no distress. Stressed that he follow-up with the urologist without fail. Disposition Clinical Impression: Corado catheter problem Disposition: HOME SELF-CARE Condition: Good Instructions: Urinary Tract Infection in Men (ED), Corado Catheter Placement and Care (ED) Referrals: None,Stated [Primary Care Provider] - 1-2 days Logan Hess MD [STAFF PHYSICIAN] - 1-2 days Time of Disposition: 14:47
[2017-03-30 15:06] VITALS: BP 110/64; PULSE 76; RESP 19; TEMP 97.9
== END 2017-03-30 15:08 | disposition home or self-care (01) ==
LOC: EC 13:24
DX: T83.031A Leakage of indwelling urethral catheter, initial encounter (principal); I25.2 Old myocardial infarction; M19.90 Unspecified osteoarthritis, unspecified site; N42.9 Disorder of prostate, unspecified; Z87.891 Personal history of nicotine dependence; Z79.82 Long term (current) use of aspirin; Z79.899 Other long term (current) drug therapy
CPT/HCPCS: 99283

== ENCOUNTER 2017-04-08 16:00 | Emergency (ER) | payer MEDICARE ==
[2017-04-08 16:23] VITALS: BP 125/90; PULSE 89; RESP 18; TEMP 98.2
--- NOTE | 2017-04-08 16:51 | ED ---
General Adult HPI - General Chief complaint: Urogenital Stated complaint: Male Time Seen by Provider: 04/08/17 16:39 Source: patient, RN notes reviewed, old records reviewed Mode of arrival: wheelchair Limitations: no limitations - History of Present Illness Initial comments: Chief complaint history of present illness this 86-year-old male who was seen here frequently for urological problems specifically to repair Corado catheter and/or Corado retention system. Today presents with his Corado catheter bag broken and draining. - Related Data Home Medications Medication Instructions Recorded Confirmed Aspirin 650 mg PO BID 08/31/16 04/08/17 Finasteride [Proscar] 5 mg PO DAILY 03/01/17 04/08/17 Tamsulosin HCl [Flomax] 0.4 mg PO BID 03/01/17 04/08/17 Previous Rx's Medication Instructions Recorded Furosemide [Lasix] 20 mg PO DAILY #5 tab 03/20/17 Allergies Allergy/AdvReac Type Severity Reaction Status Date / Time No Known Allergies Allergy Verified 04/08/17 16:31 Review of Systems ROS Statement: Those systems with pertinent positive or pertinent negative responses have been documented in the HPI. Review of systems denies any headache chest pain shortness breath GI or neural problems. problems as noted above. Past medical processing significant for chronic A. fib, COPD, GERD, hypertension , memory impairment, previous ID, OA, BPH,. Patient's surgeries include orthopedic surgery right knee ligament repair. Is also heart catheterization. Family history significant for diabetes and hypertension. Patient denies any ALLERGIES. Nonsmoker nondrinker. ROS Other: All systems not noted in ROS Statement are negative. Past Medical History Past Medical History: Atrial Fibrillation, COPD, GERD/Reflux, Hypertension, Memory Impairment, Myocardial Infarction ([place]), Osteoarthritis ([place]), Prostate Disorder Additional Past Medical History / Comment(s): memory problems, indwelling cath x 1 month Last Myocardial Infarction Date:: unk History of Any Multi-Drug Resistant Organisms: None Reported Past Surgical History: Heart Catheterization, Orthopedic Surgery Additional Past Surgical History / Comment(s): right knee ligament repair, cataracts Past Anesthesia/Blood Transfusion Reactions: No Reported Reaction Past Psychological History: No Psychological Hx Reported Smoking Status: Former smoker Past Alcohol Use History: None Reported Past Drug Use History: None Reported - Past Family History Father Additional Family Medical History / Comment(s): heart problems not sure what at age 73 Mother Family Medical History: Diabetes Mellitus Additional Family Medical History / Comment(s): at age 69 from complications from diabetes General Exam - General Exam Comments Initial Comments: General: The patient is awake and alert, here because his Corado collecting bag has broken and urine's pouring out. Vital signs temp 98.2 pulse 89 respiratory rate 18 pulse ox 95% room air blood pressure 125/90 Eye: Pupils are equal, round and reactive to light, extra-ocular movements are intact ; there is normal conjunctiva bilaterally. No signs of icterus. Arcus senilis Ears, nose, mouth and throat: There are moist mucous membranes , poor dentition. Neck: The neck is supple, no neck pain. Cardiovascular: History of A. fib, irregular rate and rhythm. Pulse 89. Blood pressure 125/90 Respiratory: Lungs clear to auscultation, no rubs rales or wheezing. No complaint of shortness of breath. Gastrointestinal: Abdomen nontender, normal bowel sounds. . Patient has a chronic indwelling Corado catheter for retention. He states he is to see his urologist next week for removal. Currently the collecting bag is broken and urine is coming out. Back: No back pain. Musculoskeletal: Chronic mild pitting edema. Neurological: Memory impairment but no neuro deficits. Able to ambulate. Skin: No current rashes or infections. Limitations: no limitations Course Vital Signs 04/08/17 16:20 Temperature 98.2 F Pulse Rate 89 Respiratory 18 Rate Blood Pressure 125/90 O2 Sat by Pulse 95 Oximetry Medical Decision Making - Medical Decision Making Patient will have his collecting system replaced. Advised to follow-up with his urologist. Disposition Clinical Impression: Malfunction of Corado catheter Disposition: HOME SELF-CARE Condition: Stable Instructions: Corado Catheter Placement and Care (ED) Additional Instructions: Follow-up with your urologist. Referrals: None,Stated [Primary Care Provider] - 1-2 days Time of Disposition: 16:52
== END 2017-04-08 17:06 | disposition home or self-care (01) ==
LOC: EC 16:00
DX: T83.011A Breakdown (mechanical) of indwelling urethral catheter, initial encounter (principal); H18.419 Arcus senilis, unspecified eye; I49.9 Cardiac arrhythmia, unspecified; R60.0 Localized edema; R41.3 Other amnesia; N42.9 Disorder of prostate, unspecified; I25.2 Old myocardial infarction; Z87.891 Personal history of nicotine dependence; Z79.82 Long term (current) use of aspirin; Z79.899 Other long term (current) drug therapy; Y73.8 Miscellaneous gastroenterology and urology devices associated with adverse incidents, not elsewhere classified
CPT/HCPCS: 51702; 99283

== ENCOUNTER 2017-04-11 13:38 | Emergency (ER) | payer MEDICARE ==
[2017-04-11 14:00] VITALS: BP 115/70; PULSE 77; RESP 20; TEMP 98.8
--- NOTE | 2017-04-11 14:31 | ED ---
General Adult HPI - General Chief complaint: Urogenital Stated complaint: Catheter Problem Time Seen by Provider: 04/11/17 14:07 Source: patient, RN notes reviewed Mode of arrival: wheelchair Limitations: physical limitation - History of Present Illness Initial comments: Patient is an 87-year-old male who presents emergency room today with a chief complaint of having some leaking around his Corado catheter. States is leaking around the meatus. Patient does admit that he's had a Corado catheter in for some time and is supposed to have it come out soon. He states he has been to urology. Patient has had multiple visits for this here in the emergency room over the last several months. Patient denies any other complaints or symptoms. Patient denies any recent fever, chills, shortness of breath, chest pain, back pain, abdominal pain, nausea or vomiting, numbness or tingling, constipation or diarrhea, headaches or visual changes, or any other complaints. - Related Data Home Medications Medication Instructions Recorded Confirmed Aspirin 650 mg PO BID 08/31/16 04/11/17 Finasteride [Proscar] 5 mg PO DAILY 03/01/17 04/11/17 Tamsulosin HCl [Flomax] 0.4 mg PO BID 03/01/17 04/11/17 Previous Rx's Medication Instructions Recorded Furosemide [Lasix] 20 mg PO DAILY #5 tab 03/20/17 Allergies Allergy/AdvReac Type Severity Reaction Status Date / Time No Known Allergies Allergy Verified 04/11/17 14:24 Review of Systems ROS Statement: Those systems with pertinent positive or pertinent negative responses have been documented in the HPI. ROS Other: All systems not noted in ROS Statement are negative. Past Medical History Past Medical History: Atrial Fibrillation, COPD, GERD/Reflux, Hypertension, Memory Impairment, Myocardial Infarction ([place]), Osteoarthritis (OA), Prostate Disorder Additional Past Medical History / Comment(s): memory problems, indwelling cath x 1 month Last Myocardial Infarction Date:: unk History of Any Multi-Drug Resistant Organisms: None Reported Past Surgical History: Heart Catheterization, Orthopedic Surgery Additional Past Surgical History / Comment(s): right knee ligament repair, cataracts Past Anesthesia/Blood Transfusion Reactions: No Reported Reaction Past Psychological History: No Psychological Hx Reported Smoking Status: Former smoker Past Alcohol Use History: None Reported Past Drug Use History: None Reported - Past Family History Father Additional Family Medical History / Comment(s): heart problems not sure what at age 73 Mother Family Medical History: Diabetes Mellitus Additional Family Medical History / Comment(s): at age 69 from complications from diabetes General Exam - General Exam Comments Initial Comments: General: The patient is awake and alert, in no distress, and does not appear acutely ill. Eye: Pupils are equal, round and reactive to light, extra-ocular movements are intact. No nystagmus. There is normal conjunctiva bilaterally. No signs of icterus. Ears, nose, mouth and throat: There are moist mucous membranes and no oral lesions. Neck: The neck is supple, there is no tenderness or JVD. Cardiovascular: There is a regular rate and rhythm. No murmur, rub or gallop is appreciated. Respiratory: Lungs are clear to auscultation, respirations are non-labored, breath sounds are equal. No wheezes, stridor, rales, or rhonchi. Gastrointestinal: Soft, non-distended, non-tender abdomen without masses or organomegaly noted. There is no rebound or guarding present. No CVA tenderness. Bowel sounds are unremarkable. Musculoskeletal: Normal ROM, no tenderness. Strength 5/5. Sensation intact. Pulses equal bilaterally 2+. Neurological: A&O x 3. CN II-XII intact, There are no obvious motor or sensory deficits. Coordination appears grossly intact. Speech is normal. Skin: Skin is warm and dry and no rashes or lesions are noted. Psychiatric: Cooperative, appropriate mood & affect, normal judgment. Limitations: physical limitation Course Vital Signs 04/11/17 13:58 Temperature 98.8 F Pulse Rate 77 Respiratory 20 Rate Blood Pressure 115/70 O2 Sat by Pulse 98 Oximetry Medical Decision Making - Medical Decision Making Records have been reviewed patient's had multiple visits for this complaint. Case was discussed in detail with attending Dr. [place]. Patient's Corado catheter will be removed. He'll be discharged home advised follow-up urology tomorrow. Advised to return if there is any retention. Disposition Clinical Impression: Corado catheter problem Disposition: HOME SELF-CARE Condition: Good Additional Instructions: Please follow-up with urologist tomorrow. Please return to emergency room if there is any urinary retention or for any other concerns. Referrals: None,Stated [Primary Care Provider] - 1-2 days Abe Oscar MD [STAFF PHYSICIAN] - 1-2 days Time of Disposition: 14:30
== END 2017-04-11 14:35 | disposition home or self-care (01) ==
LOC: EC 13:38
DX: T83.031A Leakage of indwelling urethral catheter, initial encounter (principal); I25.2 Old myocardial infarction; M19.90 Unspecified osteoarthritis, unspecified site; Z87.891 Personal history of nicotine dependence; Z79.82 Long term (current) use of aspirin; Z79.899 Other long term (current) drug therapy
CPT/HCPCS: 99283

== ENCOUNTER 2017-05-10 17:11 | Emergency (ER) | payer MEDICARE ==
--- NOTE | 2017-05-10 17:24 | ED ---
Male Urogenital HPI - General Chief complaint: Urogenital Stated complaint: Male Time Seen by Provider: 05/10/17 17:23 Source: patient, RN notes reviewed Mode of arrival: wheelchair Limitations: no limitations - History of Present Illness Initial comments: 87-year-old male presents emergency Department chief complaint Corado catheter leaking. Patient states is leaking around the tubing. Patient's had multiple problems with Coardo catheters in the past. Patient states he has had this one in place for one month. Patient denies fever, chills, headache, dizziness, chest pain, no abdominal pain, nausea vomiting. Patient states he otherwise feels healthy. Patient denies any discoloration of the urine at this time. - Related Data Home Medications Medication Instructions Recorded Confirmed Aspirin 650 mg PO BID 08/31/16 05/10/17 Finasteride [Proscar] 5 mg PO HS 03/01/17 05/10/17 Tamsulosin HCl [Flomax] 0.4 mg PO DAILY 03/01/17 05/10/17 Atorvastatin [Lipitor] 40 mg PO HS 05/10/17 05/10/17 Furosemide [Lasix] 40 mg PO HS 05/10/17 05/10/17 Lisinopril [Zestril] 2.5 mg PO DAILY 05/10/17 05/10/17 Metoprolol Succinate [Toprol XL] 25 mg PO DAILY 05/10/17 05/10/17 Oxybutynin Chloride [Ditropan] 5 mg PO TID 05/10/17 05/10/17 Allergies Allergy/AdvReac Type Severity Reaction Status Date / Time No Known Allergies Allergy Verified 05/10/17 17:38 Review of Systems ROS Statement: Those systems with pertinent positive or pertinent negative responses have been documented in the HPI. ROS Other: All systems not noted in ROS Statement are negative. Past Medical History Past Medical History: Atrial Fibrillation, COPD, GERD/Reflux, Hypertension, Memory Impairment, Myocardial Infarction ([place]), Osteoarthritis (OA), Prostate Disorder Additional Past Medical History / Comment(s): memory problems, indwelling cath Last Myocardial Infarction Date:: unk History of Any Multi-Drug Resistant Organisms: None Reported Past Surgical History: Heart Catheterization, Orthopedic Surgery Additional Past Surgical History / Comment(s): right knee ligament repair, cataracts Past Anesthesia/Blood Transfusion Reactions: No Reported Reaction Past Psychological History: No Psychological Hx Reported Smoking Status: Former smoker Past Alcohol Use History: None Reported Past Drug Use History: None Reported - Past Family History Father Additional Family Medical History / Comment(s): heart problems not sure what at age 73 Mother Family Medical History: Diabetes Mellitus Additional Family Medical History / Comment(s): at age 69 from complications from diabetes General Exam Limitations: no limitations General appearance: alert, in no apparent distress Respiratory exam: Present: normal lung sounds bilaterally. Absent: respiratory distress, wheezes, rales, rhonchi, stridor Cardiovascular Exam: Present: regular rate, normal rhythm, normal heart sounds. Absent: systolic murmur, diastolic murmur, rubs, gallop, clicks GI/Abdominal exam: Present: soft, normal bowel sounds. Absent: distended, tenderness, guarding, rebound, rigid exam: Absent: normal inspection (Corado catheter in place there is some leaking around the tubing at the urethra) Skin exam: Present: warm, dry, intact, normal color. Absent: rash Course Vital Signs 05/10/17 05/10/17 17:13 17:16 Temperature 97.7 F Pulse Rate 74 Respiratory 18 Rate Blood Pressure 93/68 O2 Sat by Pulse 98 Oximetry Medical Decision Making - Medical Decision Making 87-year-old male present emergency department for Corado catheter problem." Catheter was leaking. Patient's Corado catheter was exchanged. There is no purulent drainage. The urine is clear and no odor. Patient we discharged this time return parameters discussed. Disposition Clinical Impression: Corado catheter problem Disposition: HOME SELF-CARE Condition: Stable Instructions: Corado Catheter Placement and Care (ED) Additional Instructions: Please return to the Emergency Department if symptoms worsen or any other concerns. Referrals: None,Stated [Primary Care Provider] - 1-2 days Time of Disposition: 17:24
[2017-05-10 18:18] VITALS: RESP 16; TEMP 97.9
[2017-05-10 18:19] VITALS: BP 105/70; PULSE 62
== END 2017-05-10 18:24 | disposition home or self-care (01) ==
LOC: EC 17:11
DX: T83.031A Leakage of indwelling urethral catheter, initial encounter (principal); I10 Essential (primary) hypertension; N42.9 Disorder of prostate, unspecified; M19.90 Unspecified osteoarthritis, unspecified site; I25.2 Old myocardial infarction; Z87.891 Personal history of nicotine dependence; Z79.82 Long term (current) use of aspirin; Z79.899 Other long term (current) drug therapy
CPT/HCPCS: 51702; 99282

== ENCOUNTER 2017-05-25 21:13 | Emergency (ER) | payer MEDICARE ==
--- NOTE | 2017-05-25 22:49 | ED ---
Male Urogenital HPI - General Chief complaint: Urogenital Stated complaint: Male Urogenital Time Seen by Provider: 05/25/17 21:58 Source: patient Mode of arrival: ambulatory Limitations: no limitations - History of Present Illness Initial comments: This patient is an 87-year-old man who presents with complaint that he has urine leaking around the outside of the Corado catheter causing his underwear to be wet. Patient is denying pains related to the catheter. He has no abdominal or penile pain. He is not having fevers or chills. He has not noticed change in the urine output. Patient states that he does have appointment with urologist this coming week. The catheter was placed for retention. MD Complaint: other -: days(s) Severity scale (1-10): 0 Improves with: none Worsens with: none - Related Data Home Medications Medication Instructions Recorded Confirmed Aspirin 650 mg PO BID 08/31/16 05/25/17 Finasteride [Proscar] 5 mg PO HS 03/01/17 05/25/17 Tamsulosin HCl [Flomax] 0.4 mg PO DAILY 03/01/17 05/25/17 Atorvastatin [Lipitor] 40 mg PO HS 05/10/17 05/25/17 Furosemide [Lasix] 40 mg PO HS 05/10/17 05/25/17 Lisinopril [Zestril] 2.5 mg PO DAILY 05/10/17 05/25/17 Metoprolol Succinate [Toprol XL] 25 mg PO DAILY 05/10/17 05/25/17 Oxybutynin Chloride [Ditropan] 5 mg PO TID 05/10/17 05/25/17 Allergies Allergy/AdvReac Type Severity Reaction Status Date / Time No Known Allergies Allergy Verified 05/25/17 22:53 Review of Systems ROS Statement: Those systems with pertinent positive or pertinent negative responses have been documented in the HPI. ROS Other: All systems not noted in ROS Statement are negative. Constitutional: Denies: fever, chills Cardiovascular: Denies: palpitations Gastrointestinal: Denies: abdominal pain, vomiting Genitourinary: Denies: dysuria, hematuria, testicular pain Musculoskeletal: Denies: back pain Past Medical History Past Medical History: Atrial Fibrillation, COPD, GERD/Reflux, Hypertension, Memory Impairment, Myocardial Infarction ([place]), Osteoarthritis ([place]), Prostate Disorder Additional Past Medical History / Comment(s): memory problems, indwelling cath Last Myocardial Infarction Date:: unk History of Any Multi-Drug Resistant Organisms: None Reported Past Surgical History: Heart Catheterization, Orthopedic Surgery Additional Past Surgical History / Comment(s): right knee ligament repair, cataracts Past Anesthesia/Blood Transfusion Reactions: No Reported Reaction Past Psychological History: No Psychological Hx Reported Smoking Status: Former smoker Past Alcohol Use History: None Reported Past Drug Use History: None Reported - Past Family History Father Additional Family Medical History / Comment(s): heart problems not sure what at age 73 Mother Family Medical History: Diabetes Mellitus Additional Family Medical History / Comment(s): at age 69 from complications from diabetes General Exam Limitations: no limitations General appearance: alert, in no apparent distress GI/Abdominal exam: Present: soft. Absent: distended, tenderness, guarding, rebound exam: Absent: circumcision External exam: Present: normal external exam, other (16-Azeri Corado catheter present) Extremities exam: Present: normal inspection, normal capillary refill. Absent: pedal edema, calf tenderness Skin exam: Present: warm, dry, intact, normal color. Absent: rash Course Vital Signs 05/25/17 21:31 Temperature 98.1 F Pulse Rate 77 Respiratory 20 Rate Blood Pressure 148/64 O2 Sat by Pulse 97 Oximetry Disposition Clinical Impression: Malfunction of Corado catheter Disposition: HOME SELF-CARE Condition: Good Instructions: Corado Catheter Placement and Care (ED) Referrals: None,Stated [Primary Care Provider] - 1-2 days
[2017-05-25 23:45] VITALS: BP 143/71; PULSE 65; RESP 16; TEMP 98
== END 2017-05-25 23:49 | disposition home or self-care (01) ==
LOC: EC 21:13
DX: T83.031A Leakage of indwelling urethral catheter, initial encounter (principal); I48.91 Unspecified atrial fibrillation; I10 Essential (primary) hypertension; I25.2 Old myocardial infarction; N42.9 Disorder of prostate, unspecified; Z95.5 Presence of coronary angioplasty implant and graft; Z87.891 Personal history of nicotine dependence; Z79.82 Long term (current) use of aspirin; Z79.899 Other long term (current) drug therapy; Y84.6 Urinary catheterization as the cause of abnormal reaction of the patient, or of later complication, without mention of misadventure at the time of the procedure
CPT/HCPCS: 99283

== ENCOUNTER 2017-05-26 16:08 | Emergency (ER) | payer MEDICARE ==
[2017-05-26 16:11] VITALS: BP 109/61; PULSE 73; RESP 18; TEMP 98.3
--- NOTE | 2017-05-26 16:31 | ED ---
General Adult HPI - General Chief complaint: Recheck/Abnormal Lab/Rx Stated complaint: Leg Leaking Time Seen by Provider: 05/26/17 16:24 Source: patient, RN notes reviewed Mode of arrival: wheelchair Limitations: no limitations - History of Present Illness Initial comments: Patient 87-year-old male who presents emergency room today with chief complaint of needing Corado catheter change. He does admit that his had his full catheter in for sometime. He states she's been trying follow-up with his urologist. He states it began leaking around the catheter site. She sensed problem multiple times in the past. Patient denies any other complaints associated symptoms. Patient denies any recent fever, chills, shortness of breath, chest pain, back pain, abdominal pain, nausea or vomiting, numbness or tingling, dysuria or hematuria, constipation or diarrhea, headaches or visual changes, or any other complaints. - Related Data Home Medications Medication Instructions Recorded Confirmed Aspirin 650 mg PO BID 08/31/16 05/26/17 Finasteride [Proscar] 5 mg PO HS 03/01/17 05/26/17 Tamsulosin HCl [Flomax] 0.4 mg PO DAILY 03/01/17 05/26/17 Atorvastatin [Lipitor] 40 mg PO HS 05/10/17 05/26/17 Furosemide [Lasix] 40 mg PO HS 05/10/17 05/26/17 Lisinopril [Zestril] 2.5 mg PO DAILY 05/10/17 05/26/17 Metoprolol Succinate [Toprol XL] 25 mg PO DAILY 05/10/17 05/26/17 Oxybutynin Chloride [Ditropan] 5 mg PO TID 05/10/17 05/26/17 Allergies Allergy/AdvReac Type Severity Reaction Status Date / Time No Known Allergies Allergy Verified 05/25/17 22:53 Review of Systems ROS Statement: Those systems with pertinent positive or pertinent negative responses have been documented in the HPI. ROS Other: All systems not noted in ROS Statement are negative. Past Medical History Past Medical History: Atrial Fibrillation, COPD, GERD/Reflux, Hypertension, Memory Impairment, Myocardial Infarction ([place]), Osteoarthritis (OA), Prostate Disorder Additional Past Medical History / Comment(s): memory problems, indwelling cath Last Myocardial Infarction Date:: unk History of Any Multi-Drug Resistant Organisms: None Reported Past Surgical History: Heart Catheterization, Orthopedic Surgery Additional Past Surgical History / Comment(s): right knee ligament repair, cataracts Past Anesthesia/Blood Transfusion Reactions: No Reported Reaction Past Psychological History: No Psychological Hx Reported Smoking Status: Former smoker Past Alcohol Use History: None Reported Past Drug Use History: None Reported - Past Family History Father Additional Family Medical History / Comment(s): heart problems not sure what at age 73 Mother Family Medical History: Diabetes Mellitus Additional Family Medical History / Comment(s): at age 69 from complications from diabetes General Exam - General Exam Comments Initial Comments: General: The patient is awake and alert, in no distress, and does not appear acutely ill. Eye: Pupils are equal, round and reactive to light, extra-ocular movements are intact. No nystagmus. There is normal conjunctiva bilaterally. No signs of icterus. Ears, nose, mouth and throat: There are moist mucous membranes and no oral lesions. Neck: The neck is supple, there is no tenderness or JVD. Cardiovascular: There is a regular rate and rhythm. No murmur, rub or gallop is appreciated. Respiratory: Lungs are clear to auscultation, respirations are non-labored, breath sounds are equal. No wheezes, stridor, rales, or rhonchi. Gastrointestinal: Soft, non-distended, non-tender abdomen without masses or organomegaly noted. There is no rebound or guarding present. No CVA tenderness. Bowel sounds are unremarkable. Musculoskeletal: Normal ROM, no tenderness. Strength 5/5. Sensation intact. Pulses equal bilaterally 2+. Neurological: A&O x 3. CN II-XII intact, There are no obvious motor or sensory deficits. Coordination appears grossly intact. Speech is normal. Skin: Skin is warm and dry and no rashes or lesions are noted. Psychiatric: Cooperative, appropriate mood & affect, normal judgment. Limitations: no limitations Course Vital Signs 05/26/17 16:09 Temperature 98.3 F Pulse Rate 73 Respiratory 18 Rate Blood Pressure 109/61 O2 Sat by Pulse 96 Oximetry Medical Decision Making - Medical Decision Making Patient will have Corado catheter removed here in the emergency room. Is in agreement to try and see if he can void on his own. He'll be discharged home advised to return if there is retention. Advised follow-up with his urologist. Advised return for any other concerns. Disposition Clinical Impression: Corado catheter problem Disposition: HOME SELF-CARE Condition: Good Instructions: Urinary Retention in Men (ED) Additional Instructions: Please follow-up with urologist or return here to the emergency room if you're unable to urinate. Please return here to the emergency room for any other concerns. Referrals: None,Stated [Primary Care Provider] - 1-2 days Abe Oscar MD [STAFF PHYSICIAN] - 1-2 days Time of Disposition: 16:34
== END 2017-05-26 16:47 | disposition home or self-care (01) ==
LOC: EC 16:08
DX: T83.038A Leakage of other urinary catheter, initial encounter (principal); I48.91 Unspecified atrial fibrillation; I10 Essential (primary) hypertension; I25.2 Old myocardial infarction; N42.9 Disorder of prostate, unspecified; Z95.5 Presence of coronary angioplasty implant and graft; Z87.891 Personal history of nicotine dependence; Z79.82 Long term (current) use of aspirin; Z79.899 Other long term (current) drug therapy; Y84.6 Urinary catheterization as the cause of abnormal reaction of the patient, or of later complication, without mention of misadventure at the time of the procedure
CPT/HCPCS: 99282

== ENCOUNTER 2017-05-28 15:43 | Emergency (ER) | payer MEDICARE ==
--- NOTE | 2017-05-28 16:42 | ED ---
General Adult HPI - General Chief complaint: Back Pain/Injury Stated complaint: back pain Time Seen by Provider: 05/28/17 16:12 Source: patient, RN notes reviewed Mode of arrival: ambulatory Limitations: no limitations - History of Present Illness Initial comments: Patient is a 87-year-old male who presents emergency room today with chief complaint of low back pain. He does admit that he has a history of low back pain. States is bothering him more today. States more his tailbone morning than Anything else. Patient states hurts when he sits down. He denies any injury or trauma. Patient has been seen in the emergency room multiple times for a Corado catheter problem. Corado catheter was moved the other day here in the emergency room he states he has been voiding without any difficulty. Patient denies any other complaints or symptoms. - Related Data Home Medications Medication Instructions Recorded Confirmed Aspirin 650 mg PO BID 08/31/16 05/28/17 Finasteride [Proscar] 5 mg PO HS 03/01/17 05/28/17 Tamsulosin HCl [Flomax] 0.4 mg PO DAILY 03/01/17 05/28/17 Atorvastatin [Lipitor] 40 mg PO HS 05/10/17 05/28/17 Furosemide [Lasix] 40 mg PO HS 05/10/17 05/28/17 Lisinopril [Zestril] 2.5 mg PO DAILY 05/10/17 05/28/17 Metoprolol Succinate [Toprol XL] 25 mg PO DAILY 05/10/17 05/28/17 Oxybutynin Chloride [Ditropan] 5 mg PO TID 05/10/17 05/28/17 Previous Rx's Medication Instructions Recorded Ciprofloxacin HCl [Cipro] 500 mg PO Q12HR #20 day 05/28/17 Allergies Allergy/AdvReac Type Severity Reaction Status Date / Time No Known Allergies Allergy Verified 05/28/17 16:08 Review of Systems ROS Statement: Those systems with pertinent positive or pertinent negative responses have been documented in the HPI. ROS Other: All systems not noted in ROS Statement are negative. Past Medical History Past Medical History: Atrial Fibrillation, COPD, GERD/Reflux, Hypertension, Memory Impairment, Myocardial Infarction ([place]), Osteoarthritis ([place]), Prostate Disorder Additional Past Medical History / Comment(s): memory problems, indwelling cath Last Myocardial Infarction Date:: unk History of Any Multi-Drug Resistant Organisms: None Reported Past Surgical History: Heart Catheterization, Orthopedic Surgery Additional Past Surgical History / Comment(s): right knee ligament repair, cataracts Past Anesthesia/Blood Transfusion Reactions: No Reported Reaction Past Psychological History: No Psychological Hx Reported Smoking Status: Former smoker Past Alcohol Use History: None Reported Past Drug Use History: None Reported - Past Family History Father Additional Family Medical History / Comment(s): heart problems not sure what at age 73 Mother Family Medical History: Diabetes Mellitus Additional Family Medical History / Comment(s): at age 69 from complications from diabetes General Exam - General Exam Comments Initial Comments: General: The patient is awake and alert, in no distress, and does not appear acutely ill. Eye: Pupils are equal, round and reactive to light, extra-ocular movements are intact. No nystagmus. There is normal conjunctiva bilaterally. No signs of icterus. Ears, nose, mouth and throat: There are moist mucous membranes and no oral lesions. Neck: The neck is supple, there is no tenderness or JVD. Cardiovascular: There is a regular rate and rhythm. No murmur, rub or gallop is appreciated. Respiratory: Lungs are clear to auscultation, respirations are non-labored, breath sounds are equal. No wheezes, stridor, rales, or rhonchi. Gastrointestinal: Soft, non-distended, non-tender abdomen without masses or organomegaly noted. There is no rebound or guarding present. No CVA tenderness. Bowel sounds are unremarkable. Musculoskeletal: Normal ROM, no tenderness. No tenderness to the thoracic lumbar spine. Strength 5/5. Sensation intact. Pulses equal bilaterally 2+. Neurological: A&O x 3. CN II-XII intact, There are no obvious motor or sensory deficits. Coordination appears grossly intact. Speech is normal. Skin: Skin is warm and dry and no rashes or lesions are noted. Psychiatric: Cooperative, appropriate mood & affect, normal judgment. Limitations: no limitations Course Vital Signs 05/28/17 05/28/17 05/28/17 16:04 16:43 17:38 Temperature 98.6 F Pulse Rate 64 86 54 L Respiratory 18 20 16 Rate Blood Pressure 85/54 113/54 123/68 O2 Sat by Pulse 97 99 97 Oximetry Medical Decision Making - Medical Decision Making Patient's initial blood pressure at triage was low. He had to take his shirt off and needed to be repeated 3 times. His blood pressure was checked when he got back to the room was in the normal range. He is denying any lightheadedness dizziness or any other complaints other than some lower back discomfort. He admits to history of chronic low back pain. Patient has had recent Corado catheters multiple over the last year. He is not having retention today was able to void. His urinalysis reviewed and does show some white cells. He'll be started on antibiotic. At this time is resting comfortably. Vitals are stable. He will be discharged home on Cipro Floxin advised to follow -up the family doctor over the next 1-2 days. Advised return here to emergency room if any symptoms increase or worsen or for any other concerns. - Lab Data Lab Results 05/28/17 Range/Units 10:40 Urine Color Yellow Urine Appearance Cloudy (Clear) Urine pH 5.5 (5.0-8.0) Ur Specific [place] 1.009 (1.001-1.035) Urine Protein Negative (Negative) Urine Glucose (UA) Negative (Negative) Urine Ketones Negative (Negative) Urine Blood Negative (Negative) Urine Nitrite Negative (Negative) Urine Bilirubin Negative (Negative) Urine Urobilinogen <2.0 (<2.0) mg/dL Ur Leukocyte Esterase Small H (Negative) Urine RBC 1 (0-5) /hpf Urine WBC 9 H (0-5) /hpf Ur Squamous Epith Cells 2 (0-4) /hpf Urine Bacteria Moderate H (None) /hpf Hyaline Casts 22 H (0-2) /lpf Urine Mucus Rare H (None) /hpf Disposition Clinical Impression: Urinary tract infection Disposition: HOME SELF-CARE Condition: Good Instructions: Urinary Tract Infection in Men (ED) Additional Instructions: Please use medication as discussed. Please follow-up with family doctor in the next 2 days of symptoms have not improved. Please return to emergency room if the symptoms increase or worsen or for any other concerns. Prescriptions: Ciprofloxacin HCl [Cipro] 500 mg PO Q12HR #20 day Referrals: None,Stated [Primary Care Provider] - 1-2 days Csasie Osborne MD [STAFF PHYSICIAN] - 1-2 days Time of Disposition: 17:46
[2017-05-28 16:58] LABS: Appearance,Urine Cloudy (Clear); Bacteria,Urine Moderate /hpf; Bilirubin,Urine Negative (Negative); Glucose,Urine (UA) Negative (Negative); Ketones,Urine Negative (Negative); Leukocyte Esterase,Urine Small (Negative); Mucus,Urine Rare /hpf; Nitrite,Urine Negative (Negative); PH, Urine 5.5 (5.0-8.0); Particle Count 6798; Protein,Urine Negative (Negative); RBC,Urine 1 /hpf (0-5); Specific Gravity,Urine 1.009 (1.001-1.035); Squamous Epithelial Cell,Urine 2 /hpf (0-4); UA Billing (MACRO vs. MICRO) MICRO; Urobilinogen,Urine <2.0 mg/dL (<2.0); WBC,Urine 9 /hpf (0-5)
[2017-05-28 18:10] VITALS: BP 102/66; PULSE 52; RESP 17; TEMP 98.4
== END 2017-05-28 18:09 | disposition home or self-care (01) ==
LOC: EC 15:43
DX: N39.0 Urinary tract infection, site not specified (principal); I48.91 Unspecified atrial fibrillation; N42.9 Disorder of prostate, unspecified; I10 Essential (primary) hypertension; I25.2 Old myocardial infarction; Z95.5 Presence of coronary angioplasty implant and graft; Z79.82 Long term (current) use of aspirin; Z79.899 Other long term (current) drug therapy; Z87.891 Personal history of nicotine dependence
CPT/HCPCS: 81001; 87077; 87086; 87186; 99283

== ENCOUNTER 2017-05-29 18:57 | Emergency (ER) | payer MEDICARE ==
--- NOTE | 2017-05-29 19:45 | ED ---
General Adult HPI - General Chief complaint: Urogenital Stated complaint: states catheter problem Time Seen by Provider: 05/29/17 19:31 Source: patient, RN notes reviewed Mode of arrival: wheelchair Limitations: no limitations - History of Present Illness Initial comments: 87-year-old male well-known to this emergency Department with history of urinary retention, patient did have urinary catheter placed for some time. This was removed according the patient couple weeks ago. He has had increased abdominal fullness and incontinence. Patient has a family reunion tomorrow for which he has to cope. He is concerned that he will continue to have urinary incontinence. He is requesting a Corado catheter be placed. Denies fever or chills. Denies trauma pain. Denies chest pain or shortness of breath. - Related Data Home Medications Medication Instructions Recorded Confirmed Aspirin 650 mg PO BID 08/31/16 05/29/17 Finasteride [Proscar] 5 mg PO HS 03/01/17 05/29/17 Tamsulosin HCl [Flomax] 0.4 mg PO DAILY 03/01/17 05/29/17 Atorvastatin [Lipitor] 40 mg PO HS 05/10/17 05/29/17 Furosemide [Lasix] 40 mg PO HS 05/10/17 05/29/17 Lisinopril [Zestril] 2.5 mg PO DAILY 05/10/17 05/29/17 Metoprolol Succinate [Toprol XL] 25 mg PO DAILY 05/10/17 05/29/17 Oxybutynin Chloride [Ditropan] 5 mg PO TID 05/10/17 05/29/17 Previous Rx's Medication Instructions Recorded Ciprofloxacin HCl [Cipro] 500 mg PO Q12HR #20 day 05/28/17 Allergies Allergy/AdvReac Type Severity Reaction Status Date / Time No Known Allergies Allergy Verified 05/29/17 19:23 Review of Systems ROS Statement: Those systems with pertinent positive or pertinent negative responses have been documented in the HPI. ROS Other: All systems not noted in ROS Statement are negative. Past Medical History Past Medical History: Atrial Fibrillation, COPD, GERD/Reflux, Hypertension, Memory Impairment, Myocardial Infarction ([place]), Osteoarthritis (OA), Prostate Disorder Additional Past Medical History / Comment(s): memory problems, indwelling cath Last Myocardial Infarction Date:: unk History of Any Multi-Drug Resistant Organisms: None Reported Past Surgical History: Heart Catheterization, Orthopedic Surgery Additional Past Surgical History / Comment(s): right knee ligament repair, cataracts Past Anesthesia/Blood Transfusion Reactions: No Reported Reaction Past Psychological History: No Psychological Hx Reported Smoking Status: Former smoker Past Alcohol Use History: None Reported Past Drug Use History: None Reported - Past Family History Father Additional Family Medical History / Comment(s): heart problems not sure what at age 73 Mother Family Medical History: Diabetes Mellitus Additional Family Medical History / Comment(s): at age 69 from complications from diabetes General Exam Limitations: no limitations General appearance: alert, in no apparent distress Head exam: Present: atraumatic, normocephalic Eye exam: Present: normal appearance, PERRL ENT exam: Present: normal exam Neck exam: Present: normal inspection Respiratory exam: Absent: normal lung sounds bilaterally, respiratory distress Cardiovascular Exam: Present: regular rate GI/Abdominal exam: Present: soft. Absent: distended, tenderness, guarding exam: Present: normal inspection. Absent: scrotal swelling Extremities exam: Present: normal inspection, normal capillary refill. Absent: pedal edema Neurological exam: Present: alert, oriented X3 Psychiatric exam: Present: normal affect, normal mood Skin exam: Present: warm, dry, intact. Absent: cyanosis, diaphoretic Course Vital Signs 05/29/17 19:07 Temperature 99 F Pulse Rate 85 Respiratory 16 Rate Blood Pressure 134/79 O2 Sat by Pulse 95 Oximetry Medical Decision Making - Medical Decision Making 87-year-old male history urinary retention presents with chief complaint of urinary incontinence. Patient's request a Corado catheter be placed. Is concerned about his incontinence. He does have history of urinary retention and has some abdominal fullness on examination. Minimal physical exam is unremarkable. Patient does have outpatient follow-up with urology. Catheter will be placed in the emergency department. Urinary retention, with overflow incontinence. Disposition Clinical Impression: Acute retention of urine, Incontinence overflow, urine Disposition: HOME SELF-CARE Instructions: Corado Catheter Placement and Care (ED) Referrals: None,Stated [Primary Care Provider] - 1-2 days Feng Macias MD [STAFF PHYSICIAN] - 1-2 days Time of Disposition: 19:45
[2017-05-29 20:10] VITALS: BP 144/77; PULSE 88; RESP 18; TEMP 98.1
== END 2017-05-29 20:10 | disposition home or self-care (01) ==
LOC: EC 18:57
DX: R33.9 Retention of urine, unspecified (principal); R32 Unspecified urinary incontinence; I48.91 Unspecified atrial fibrillation; I10 Essential (primary) hypertension; I25.2 Old myocardial infarction; N42.9 Disorder of prostate, unspecified; Z95.5 Presence of coronary angioplasty implant and graft; Z87.891 Personal history of nicotine dependence; Z79.82 Long term (current) use of aspirin; Z79.899 Other long term (current) drug therapy; Y84.6 Urinary catheterization as the cause of abnormal reaction of the patient, or of later complication, without mention of misadventure at the time of the procedure
CPT/HCPCS: 51702; 99283

== ENCOUNTER 2017-06-03 15:21 | Emergency (ER) | payer MEDICARE ==
[2017-06-03 16:07] VITALS: RESP 16
--- NOTE | 2017-06-03 16:23 | ED ---
General Adult HPI - General Chief complaint: Headache Stated complaint: blood pressure/med refill Time Seen by Provider: 06/03/17 16:05 Source: patient, RN notes reviewed, old records reviewed Mode of arrival: ambulatory Limitations: no limitations - History of Present Illness Initial comments: Chief complaint history of present illness an 87-year-old male here with a complaint of mild headache. Patient also points out that he's not had is blood pressure pills, lisinopril for 3 days. He thinks it might be caused by high blood pressure. Initial blood pressure check was 88/62. Patient denying any nausea vomiting diarrhea or blood loss. Repeat blood pressure was 96/56 and then while discussing the patient's blood pressure with him as up to 105/56. The patient recently completed Cipro. Patient has indwelling Corado catheter which is been chronic. Patient denies any photophobia, no stiff neck or meningismus. He states is a typical headache which she gets on occasion. - Related Data Home Medications Medication Instructions Recorded Confirmed Aspirin 650 mg PO BID 08/31/16 05/29/17 Finasteride [Proscar] 5 mg PO HS 03/01/17 05/29/17 Tamsulosin HCl [Flomax] 0.4 mg PO DAILY 03/01/17 05/29/17 Atorvastatin [Lipitor] 40 mg PO HS 05/10/17 05/29/17 Furosemide [Lasix] 40 mg PO HS 05/10/17 05/29/17 Lisinopril [Zestril] 2.5 mg PO DAILY 05/10/17 05/29/17 Metoprolol Succinate [Toprol XL] 25 mg PO DAILY 05/10/17 05/29/17 Oxybutynin Chloride [Ditropan] 5 mg PO TID 05/10/17 05/29/17 Previous Rx's Medication Instructions Recorded Lisinopril [Zestril] 2.5 mg PO DAILY #30 tab 06/03/17 Allergies Allergy/AdvReac Type Severity Reaction Status Date / Time No Known Allergies Allergy Verified 06/03/17 16:37 Review of Systems ROS Statement: Those systems with pertinent positive or pertinent negative responses have been documented in the HPI. Review of systems. Patient has mild headache which she states is typical Occasion Denying Any Photophobia No Stiff Neck No Meningismus. No Chest Pain Shortness Breath GI/ Problems. Denies Anything That May Have Caused Him to Be Dehydrated. All Systems Were Reviewed. Past Medical Problems Chronic A. fib , COPD, GERD, Hypertension, Memory Impairment, Previous [place], Osteoarthritis, Prostate Problems for Which She Needs a Corado Catheter. Patient's Surgeries Include Heart Catheterization, Right Knee Ligament Repair. Family History Noncontributory. Patient Denies Any ALLERGIES. Patient is a former smoker quit years ago. Denies alcohol use. ROS Other: All systems not noted in ROS Statement are negative. Past Medical History Past Medical History: Atrial Fibrillation, COPD, GERD/Reflux, Hypertension, Memory Impairment, Myocardial Infarction ([place]), Osteoarthritis (OA), Prostate Disorder Additional Past Medical History / Comment(s): memory problems, indwelling cath Last Myocardial Infarction Date:: unk History of Any Multi-Drug Resistant Organisms: None Reported Past Surgical History: Heart Catheterization, Orthopedic Surgery Additional Past Surgical History / Comment(s): right knee ligament repair, cataracts Past Anesthesia/Blood Transfusion Reactions: No Reported Reaction Past Psychological History: No Psychological Hx Reported Smoking Status: Former smoker Past Alcohol Use History: None Reported Past Drug Use History: None Reported - Past Family History Father Additional Family Medical History / Comment(s): heart problems not sure what at age 73 Mother Family Medical History: Diabetes Mellitus Additional Family Medical History / Comment(s): at age 69 from complications from diabetes General Exam - General Exam Comments Initial Comments: General: The patient is awake and alert, in no distress, and does not appear acutely ill. States he ran out of his blood pressure medication and thinks the mild headache he has may be due to that. The patient's vitals show temperature 97.4 pulse 63 respiratory rate 18 pulse ox 97% room air. Initial blood pressure 88/ 62. 2 more times when up to 96/56 and then while interviewing the patient last blood pressure was 105/56. Eye: Pupils are equal, round and reactive to light, extra-ocular movements are intact ; there is normal conjunctiva bilaterally. No signs of icterus. No photophobia. Ears, nose, mouth and throat: There are moist mucous membranes and no oral lesions. Neck: The neck is supple, there is no tenderness, no jugular venous distention, no carotid bruit. No stiff neck. No headache with neck flexion no meningismus. Cardiovascular: Irregular rate and rhythm, history of A. fib.. No murmur, rub or gallop is appreciated. Respiratory: Lungs are clear to auscultation, respirations are non-labored, breath sounds are equal. No wheezes, stridor, rales, or rhonchi. Gastrointestinal: Soft, non-distended, non-tender abdomen without masses or organomegaly noted. There is no rebound or guarding present. No CVA tenderness. Bowel sounds are unremarkable. Patient has a leg bag, Corado catheter working well. Back: There is no tenderness to palpation in the midline. There is no obvious deformity. No rashes noted. Musculoskeletal: Normal ROM, no tenderness, There is no pedal edema. There is no calf tenderness or swelling. Sensation intact. Pulses equal bilaterally 2+. Neurological: CN II-XII intact, There are no obvious motor or sensory deficits. Coordination appears grossly intact. Speech is normal. No neuro deficits noted or complained of. Headache is minimal. No meningismus. Denies any difficulty walking or balance. Skin: Skin is warm and dry and no rashes or lesions are noted. Limitations: no limitations Course Vital Signs 06/03/17 06/03/17 15:50 16:05 Temperature 97.4 F L Pulse Rate 63 66 Respiratory 18 16 Rate Blood Pressure 88/62 96/51 O2 Sat by Pulse 97 98 Oximetry Medical Decision Making - Medical Decision Making Rectal decision making. The patient will be given a prescription for lisinopril. He's been advised to follow-up with family physician. He is able to get blood pressure checked at the local pharmacies he frequently. He was told to check there before he restarts his blood pressure medications. Is advised that if his blood pressure was below 110 on the upper number not to take his blood pressure pills. Advised to use Tylenol for headache. Return emergency room as needed Disposition Clinical Impression: Headache, Encounter for medication refill Disposition: HOME SELF-CARE Condition: Fair Instructions: Acute Headache (ED) Additional Instructions: Take Tylenol for headache. Gets her blood pressure rechecked daily. Take your blood pressure pills when your blood pressure is above 120 systolic, the upper number. Remember not to take your blood pressure pills if your upper number is below 120. Prescriptions: Lisinopril [Zestril] 2.5 mg PO DAILY #30 tab Referrals: None,Stated [Primary Care Provider] - 1-2 days Time of Disposition: 16:56
[2017-06-03] MEDS ORDERED: ACETAMINOPHEN TAB 500 MG TAB PO STA (16:52)
[2017-06-03 17:03] VITALS: BP 96/50; PULSE 58; TEMP 97.2
== END 2017-06-03 17:08 | disposition home or self-care (01) ==
LOC: EC 15:21
DX: R51 Headache (principal); I10 Essential (primary) hypertension; Z76.0 Encounter for issue of repeat prescription; I48.91 Unspecified atrial fibrillation; K21.9 Gastro-esophageal reflux disease without esophagitis; I25.2 Old myocardial infarction; N42.9 Disorder of prostate, unspecified; Z95.5 Presence of coronary angioplasty implant and graft; Z79.82 Long term (current) use of aspirin; Z79.899 Other long term (current) drug therapy; Z87.891 Personal history of nicotine dependence
CPT/HCPCS: 99284

== ENCOUNTER 2017-07-02 10:16 | Emergency (ER) | payer MEDICARE ==
--- NOTE | 2017-07-02 11:05 | ED ---
General Adult HPI - General Chief complaint: Urogenital Stated complaint: cath problems Time Seen by Provider: 07/02/17 10:34 Source: patient, RN notes reviewed, old records reviewed Mode of arrival: wheelchair Limitations: no limitations - History of Present Illness Initial comments: This is a 87-year-old male to the ER for evaluation. This patient presents today for recurrent urinary catheterization problems. Patient has indwelling catheter successfully bag is having leakage. The leaking since last night. Patient states is having good output. No pain. No bowel pain. No recent fevers. No blood in his urine. No other complaints. Patient states he needs another urinary bag, leg bag - Related Data Home Medications Medication Instructions Recorded Confirmed Aspirin 650 mg PO BID 08/31/16 06/08/17 Tamsulosin HCl [Flomax] 0.4 mg PO DAILY 03/01/17 06/08/17 Atorvastatin [Lipitor] 40 mg PO HS 05/10/17 06/08/17 Furosemide [Lasix] 40 mg PO HS 05/10/17 06/08/17 Lisinopril [Zestril] 2.5 mg PO DAILY 05/10/17 06/08/17 Metoprolol Succinate [Toprol XL] 25 mg PO DAILY 05/10/17 06/08/17 Oxybutynin Chloride [Ditropan] 5 mg PO TID 05/10/17 06/08/17 Previous Rx's Medication Instructions Recorded Lisinopril [Zestril] 2.5 mg PO DAILY #30 tab 06/08/17 Allergies Allergy/AdvReac Type Severity Reaction Status Date / Time No Known Allergies Allergy Verified 07/02/17 10:21 Review of Systems ROS Statement: Those systems with pertinent positive or pertinent negative responses have been documented in the HPI. ROS Other: All systems not noted in ROS Statement are negative. Past Medical History Past Medical History: Atrial Fibrillation, COPD, GERD/Reflux, Hypertension, Memory Impairment, Myocardial Infarction ([place]), Osteoarthritis ([place]), Prostate Disorder Additional Past Medical History / Comment(s): memory problems, indwelling cath Last Myocardial Infarction Date:: unk History of Any Multi-Drug Resistant Organisms: None Reported Past Surgical History: Heart Catheterization, Orthopedic Surgery Additional Past Surgical History / Comment(s): right knee ligament repair, cataracts Past Anesthesia/Blood Transfusion Reactions: No Reported Reaction Past Psychological History: No Psychological Hx Reported Smoking Status: Former smoker Past Alcohol Use History: None Reported Past Drug Use History: None Reported - Past Family History Father Additional Family Medical History / Comment(s): heart problems not sure what at age 73 Mother Family Medical History: Diabetes Mellitus Additional Family Medical History / Comment(s): at age 69 from complications from diabetes General Exam - General Exam Comments Initial Comments: Indwelling Corado catheter is intact Limitations: no limitations General appearance: alert, in no apparent distress Head exam: Present: atraumatic, normocephalic, normal inspection Eye exam: Present: normal appearance, PERRL, EOMI. Absent: scleral icterus, conjunctival injection, periorbital swelling ENT exam: Present: normal exam, mucous membranes moist Neck exam: Present: normal inspection. Absent: tenderness, meningismus, lymphadenopathy Respiratory exam: Present: normal lung sounds bilaterally. Absent: respiratory distress, wheezes, rales, rhonchi, stridor Cardiovascular Exam: Present: regular rate, normal rhythm, normal heart sounds. Absent: systolic murmur, diastolic murmur, rubs, gallop, clicks GI/Abdominal exam: Present: soft, normal bowel sounds. Absent: distended, tenderness, guarding, rebound, rigid Extremities exam: Present: normal inspection, full ROM, normal capillary refill. Absent: tenderness, pedal edema, joint swelling, calf tenderness Back exam: Present: normal inspection Neurological exam: Present: alert, oriented X3, CN II-XII intact Psychiatric exam: Present: normal affect, normal mood Skin exam: Present: warm, dry, intact, normal color. Absent: rash Course Vital Signs 07/02/17 10:19 Temperature 97.2 F L Pulse Rate 88 Respiratory 18 Rate Blood Pressure 136/86 O2 Sat by Pulse 97 Oximetry - Reevaluation(s) Reevaluation #1: 07/02/17 11:04 Leg bag is exchanged here in emergency room Medical Decision Making - Medical Decision Making 87 male to the ER with urinary catheter issue, nonfunctioning leg bag, leg bag is replaced and patient can be discharged home Disposition Clinical Impression: Urinary catheter change required Disposition: HOME SELF-CARE Condition: Good Instructions: Corado Catheter Placement and Care (ED) Referrals: Jaycob Douglass MD [Primary Care Provider] - 1-2 days
[2017-07-02 11:23] VITALS: BP 141/79; PULSE 74; RESP 17; TEMP 98.1
== END 2017-07-02 11:25 | disposition home or self-care (01) ==
LOC: EC 10:16
DX: T83.098A Other mechanical complication of other urinary catheter, initial encounter (principal); I48.91 Unspecified atrial fibrillation; J44.9 Chronic obstructive pulmonary disease, unspecified; K21.9 Gastro-esophageal reflux disease without esophagitis; I10 Essential (primary) hypertension; I25.2 Old myocardial infarction; M19.90 Unspecified osteoarthritis, unspecified site; N42.9 Disorder of prostate, unspecified; Z87.891 Personal history of nicotine dependence; Z79.82 Long term (current) use of aspirin; Z79.899 Other long term (current) drug therapy
CPT/HCPCS: 51702; 99283

== ENCOUNTER 2017-07-15 07:29 | Observation (INO) | payer MEDICARE ==
[2017-07-15 08:03] LABS: Anisocytosis Slight; Basophils % (A) 0 %; CH 30.5; CHCM 30.9; Eosinophils # (A) 0.4 k/uL (0-0.7); Eosinophils % (A) 5 %; HCT 30.8 % (39.0-53.0); HDW 2.34; HGB 9.6 gm/dL (13.0-17.5); Hypochromasia Slight; Luc % (Auto) 1; Lymphocytes % (A) 12 %; MCH 30.8 pg (25.0-35.0); MCHC 31.1 g/dL (31.0-37.0); MCV 99.1 fL (80.0-100.0); Macrocytosis Slight; Mean Platelet Volume 10.2; Monocytes # (A) 0.4 k/uL (0-1.0); Monocytes % (A) 4 %; Neutrophils # (A) 6.5 k/uL (1.3-7.7); Neutrophils % (A) 77 %; RDW 16.1 % (11.5-15.5); WBC 8.4 k/uL (3.8-10.6); WBC (Perox) 8.44
--- NOTE | 2017-07-15 08:11 | ED ---
General Adult HPI - General Chief complaint: Chest Pain Stated complaint: INTERMITTENT CHEST PAIN Time Seen by Provider: 07/15/17 07:33 Source: patient, RN/MD, EMS, RN notes reviewed, old records reviewed Mode of arrival: EMS Limitations: altered mental status, physical limitation - History of Present Illness Initial comments: This is a 87-year-old male to the ER for evaluation regarding the chest pain today. Patient is history of chest pain coming in with significant chest pain today. Anterior heaviness on his chest. Patient has history of CAD, history of atrial fibrillation. Patient denies fever cough or congestion, not currently short of breath. No travel history no sick contacts. Patient denies modifying factors for pain - Related Data Home Medications Medication Instructions Recorded Confirmed Tamsulosin HCl [Flomax] 0.4 mg PO DAILY 03/01/17 07/15/17 Atorvastatin [Lipitor] 40 mg PO HS@2100 05/10/17 07/15/17 Lisinopril [Zestril] 2.5 mg PO DAILY 05/10/17 07/15/17 Metoprolol Succinate [Toprol XL] 25 mg PO DAILY 05/10/17 07/15/17 Oxybutynin Chloride [Ditropan] 5 mg PO TID 05/10/17 07/15/17 Potassium Gluconate 99 mg PO DAILY@1700 07/02/17 07/15/17 Aspirin 81 mg PO DAILY@1700 07/15/17 07/15/17 Bisacodyl [Dulcolax] 10 mg RECTAL DAILY PRN 07/15/17 07/15/17 Ipratropium-Albuterol Nebulize 3 ml INHALATION RT-TID 07/15/17 07/15/17 [Duoneb 0.5 mg-3 mg/3 ml Soln] Lactose-Reduced Food [Ensure Plus] 1 can PO TID 07/15/17 07/15/17 Magnesium Hydroxide [Milk of 2,400 mg PO DAILY PRN 07/15/17 07/15/17 Magnesia] Na Phos,M-B/Na Phos,Di-Ba [Fleet 133 ml RECTAL DAILY PRN 07/15/17 07/15/17 Adult] Previous Rx's Medication Instructions Recorded Acetaminophen Tab [Tylenol] 650 mg PO Q4HR PRN tab 07/08/17 Apixaban [Eliquis] 2.5 mg PO BID tablet 07/08/17 Budesonide [Pulmicort] 1 mg INHALATION RT-BID nebu 07/08/17 Cefuroxime Axetil [Ceftin] 500 mg PO BID #22 tab 07/08/17 Formoterol Fumarate [Perforomist] 20 mcg INHALATION RT-BID #60 nebu 07/08/17 Furosemide [Lasix] 40 mg PO DAILY tab 07/08/17 Sennosides/Docusate Sodium [[place] 1 tab PO DAILY #1 tab 07/08/17 Colace] Allergies Allergy/AdvReac Type Severity Reaction Status Date / Time No Known Allergies Allergy Verified 07/15/17 07:43 Review of Systems ROS Statement: Those systems with pertinent positive or pertinent negative responses have been documented in the HPI. ROS Other: All systems not noted in ROS Statement are negative. Past Medical History Past Medical History: Atrial Fibrillation, Heart Failure, COPD, Dementia, GERD/ Reflux, Hyperlipidemia, Hypertension, Memory Impairment, Myocardial Infarction ( [place]), Osteoarthritis ([place]), Prostate Disorder Additional Past Medical History / Comment(s): Afib with RVR, mitral regurg, tricuspid regurt, moderate pulmonary edema, O2 2L/NC ATC, memory problems, BPH with chronic indwelling cath, hematuria, DJD. Last Myocardial Infarction Date:: 1973 History of Any Multi-Drug Resistant Organisms: None Reported Past Surgical History: Heart Catheterization, Orthopedic Surgery Additional Past Surgical History / Comment(s): right knee ligament repair, bilateral cataracts removed with lens. Past Anesthesia/Blood Transfusion Reactions: No Reported Reaction Past Psychological History: No Psychological Hx Reported Smoking Status: Former smoker Past Alcohol Use History: None Reported Past Drug Use History: None Reported - Past Family History Father Additional Family Medical History / Comment(s): heart problems not sure what at age 73 Mother Family Medical History: Diabetes Mellitus Additional Family Medical History / Comment(s): at age 69 from complications from diabetes General Exam Limitations: altered mental status, physical limitation General appearance: alert, in no apparent distress Head exam: Present: atraumatic, normocephalic, normal inspection Eye exam: Present: normal appearance, PERRL, EOMI. Absent: scleral icterus, conjunctival injection, periorbital swelling ENT exam: Present: normal exam, mucous membranes moist Neck exam: Present: normal inspection. Absent: tenderness, meningismus, lymphadenopathy Respiratory exam: Present: normal lung sounds bilaterally. Absent: respiratory distress, wheezes, rales, rhonchi, stridor Cardiovascular Exam: Present: regular rate, tachycardia, irregular rhythm, normal heart sounds. Absent: systolic murmur, diastolic murmur, rubs, gallop, clicks GI/Abdominal exam: Present: soft, normal bowel sounds. Absent: distended, tenderness, guarding, rebound, rigid Extremities exam: Present: normal inspection, full ROM, normal capillary refill. Absent: tenderness, pedal edema, joint swelling, calf tenderness Back exam: Present: normal inspection Neurological exam: Present: alert, oriented X3, CN II-XII intact Psychiatric exam: Present: normal affect, normal mood Skin exam: Present: warm, dry, intact, normal color. Absent: rash Course Vital Signs 07/15/17 07/15/17 07/15/17 07:32 07:57 08:37 Temperature 98 F Pulse Rate 65 75 Respiratory 18 19 18 Rate Blood Pressure 96/60 95/58 O2 Sat by Pulse 94 L 97 Oximetry 07/15/17 09:21 Temperature Pulse Rate 82 Respiratory 16 Rate Blood Pressure 101/71 O2 Sat by Pulse 91 L Oximetry - Reevaluation(s) Reevaluation #1: 07/15/17 09:26 Medical record is significantly reviewed Reevaluation #2: 07/15/17 09:26 Patient with recurrent chest pain we will repeat EKG EKG Findings - EKG Comments: EKG Findings:: EKG shows atrial fibrillation at 76, QRS 110, QTc 459. Repeat EKG shows atrial fibrillation rate of 74, QRS 110, QTc 468 Medical Decision Making - Medical Decision Making 87 male the ER for evaluation. Patient presents for evaluation of chest pain history of heart disease and ventricular fibrillation. Patient is currently on anticoagulation. Patient be admitted for cardiac observation - Lab Data Result diagrams: 07/15/17 07:50 07/15/17 07:50 Lab Results 07/15/17 07/15/17 07/15/17 Range/Units 07:50 07:50 07:50 WBC 8.4 (3.8-10.6) k/uL RBC 3.10 L (4.30-5.90) m/uL Hgb 9.6 L (13.0-17.5) gm/dL Hct 30.8 L (39.0-53.0) % MCV 99.1 (80.0-100.0) fL MCH 30.8 (25.0-35.0) pg MCHC 31.1 (31.0-37.0) g/dL RDW 16.1 H (11.5-15.5) % Plt Count 238 (150-450) k/uL Neutrophils % 77 % Lymphocytes % 12 % Monocytes % 4 % Eosinophils % 5 % Basophils % 0 % Neutrophils # 6.5 (1.3-7.7) k/uL Lymphocytes # 1.0 (1.0-4.8) k/uL Monocytes # 0.4 (0-1.0) k/uL Eosinophils # 0.4 (0-0.7) k/uL Basophils # 0.0 (0-0.2) k/uL Hypochromasia Slight Anisocytosis Slight Macrocytosis Slight PT (9.0-12.0) sec INR (<1.2) APTT (22.0-30.0) sec Sodium 138 (137-145) mmol/L Potassium 4.0 (3.5-5.1) mmol/L Chloride 101 (98-107) mmol/L Carbon Dioxide 32 H (22-30) mmol/L Anion Gap 5 mmol/L BUN 15 (9-20) mg/dL Creatinine 0.89 (0.66-1.25) mg/dL Est GFR (MDRD) Af Amer >60 (>60 ml/min/1.73 sqM) Est GFR (MDRD) Non-Af >60 (>60 ml/min/1.73 sqM) Glucose 116 H (74-99) mg/dL Calcium 8.2 L (8.4-10.2) mg/dL Magnesium 2.0 (1.6-2.3) mg/dL Total Bilirubin 0.8 (0.2-1.3) mg/dL AST 50 (17-59) U/L ALT 80 H (21-72) U/L Alkaline Phosphatase 98 (38-126) U/L Total Creatine Kinase 44 L (55-170) U/L CK-MB (CK-2) 0.7 (0.0-2.4) ng/mL CK-MB (CK-2) Rel Index 1.6 Troponin I 0.035 H* (0.000-0.034) ng/mL NT-Pro-B Natriuret Pep pg/mL Total Protein 6.4 (6.3-8.2) g/dL Albumin 2.8 L (3.5-5.0) g/dL Lipase 98 (23-300) U/L 07/15/17 07/15/17 Range/Units 07:50 07:50 WBC (3.8-10.6) k/uL RBC (4.30-5.90) m/uL Hgb (13.0-17.5) gm/dL Hct (39.0-53.0) % MCV (80.0-100.0) fL MCH (25.0-35.0) pg MCHC (31.0-37.0) g/dL RDW (11.5-15.5) % Plt Count (150-450) k/uL Neutrophils % % Lymphocytes % % Monocytes % % Eosinophils % % Basophils % % Neutrophils # (1.3-7.7) k/uL Lymphocytes # (1.0-4.8) k/uL Monocytes # (0-1.0) k/uL Eosinophils # (0-0.7) k/uL Basophils # (0-0.2) k/uL Hypochromasia Anisocytosis Macrocytosis PT 11.4 (9.0-12.0) sec INR 1.1 (<1.2) APTT 24.3 (22.0-30.0) sec Sodium (137-145) mmol/L Potassium (3.5-5.1) mmol/L Chloride (98-107) mmol/L Carbon Dioxide (22-30) mmol/L Anion Gap mmol/L BUN (9-20) mg/dL Creatinine (0.66-1.25) mg/dL Est GFR (MDRD) Af Amer (>60 ml/min/1.73 sqM) Est GFR (MDRD) Non-Af (>60 ml/min/1.73 sqM) Glucose (74-99) mg/dL Calcium (8.4-10.2) mg/dL Magnesium (1.6-2.3) mg/dL Total Bilirubin (0.2-1.3) mg/dL AST (17-59) U/L ALT (21-72) U/L Alkaline Phosphatase (38-126) U/L Total Creatine Kinase (55-170) U/L CK-MB (CK-2) (0.0-2.4) ng/mL CK-MB (CK-2) Rel Index Troponin I (0.000-0.034) ng/mL NT-Pro-B Natriuret Pep 1510 pg/mL Total Protein (6.3-8.2) g/dL Albumin (3.5-5.0) g/dL Lipase (23-300) U/L - Radiology Data Radiology results: report reviewed (Chest x-rays negative for acute disease), image reviewed Critical Care Time Critical Care Time: Yes Total Critical Care Time: 31 Disposition Clinical Impression: Elevated troponin I level, Atrial fibrillation, Chest pain Disposition: ADMITTED IP TO THIS [facility] Condition: Undetermined Referrals: Jaycob Douglass MD [Primary Care Provider] - 1-2 days
--- NOTE | 2017-07-15 08:12 | XR ---
EXAMINATION TYPE: XR chest 2V DATE OF EXAM: 07/15/2017 COMPARISON: 07/06/2017 TECHNIQUE: PA and lateral views submitted. HISTORY: Chest pain FINDINGS: Right lower lobe infiltrate and small effusion seen. Mild central interstitial prominence. The heart is enlarged. Atherosclerotic change aorta. Arthropathy of the AC joints. Hypertrophic and degenerativ e change of the spine. IMPRESSION: 1. Right lower lobe infiltrate and small effusion stable. No overt failure.
[2017-07-15 08:14] LABS: INR 1.1 (<1.2); Partial Thromboplastin Time 24.3 sec (22.0-30.0); Prothrombin Time 11.4 sec (9.0-12.0)
[2017-07-15 08:17] LABS: ALT 80 U/L (21-72); AST 50 U/L (17-59); Alkaline Phosphatase 98 U/L (38-126); Anion Gap 5 mmol/L; Blood Urea Nitrogen 15 mg/dL (9-20); Calcium 8.2 mg/dL (8.4-10.2); Carbon Dioxide 32 mmol/L (22-30); Chloride 101 mmol/L (98-107); Glucose 116 mg/dL (74-99); Non-African American GFR(MDRD) >60 (>60 ml/min/1.73 sqM); Sodium 138 mmol/L (137-145); Total Bilirubin 0.8 mg/dL (0.2-1.3); Total Protein 6.4 g/dL (6.3-8.2)
[2017-07-15 08:37] LABS: Creatine Kinase MB 0.7 ng/mL (0.0-2.4)
[2017-07-15 08:38] LABS: Troponin I 0.035 ng/mL (0.000-0.034)
[2017-07-15] MEDS ORDERED: MORPHINE SULFATE 10 MG/ML SYRINGE IVP STA (09:16)
[2017-07-15] MEDS ORDERED: ASPIRIN 81 MG PO STA (09:24)
[2017-07-15] MEDS ORDERED: NITROGLYCERIN SL TABS 0.4 MG TAB SUBLINGUAL PRN (09:24)
[2017-07-15] MEDS ORDERED: MORPHINE SULFATE 10 MG/ML SYRINGE IV PRN (09:24)
[2017-07-15] MEDS ORDERED: MAGNESIUM HYDROXIDE 2,400 MG/10 ML CUP PO PRN (13:02)
[2017-07-15] MEDS ORDERED: BISACODYL 10 MG SUPP RECTAL PRN (13:02)
[2017-07-15] MEDS ORDERED: ACETAMINOPHEN TAB 325 MG TAB PO PRN (13:02)
[2017-07-15 14:15] LABS: Creatine Kinase MB 0.8 ng/mL (0.0-2.4); Troponin I 0.032 ng/mL (0.000-0.034)
[2017-07-15] MEDS ORDERED: NA PHOS,M-B/NA PHOS,DI-BA 133 ML ENEMA RECTAL PRN (15:09)
[2017-07-15] MEDS: OXYBUTYNIN CHLORIDE 5 MG TAB PO SCH ×2 (15:31→21:19)
[2017-07-15] MEDS: POTASSIUM CHLORIDE ORAL LIQUID 40 MEQ/30 ML CUP PO SCH (15:31)
[2017-07-15] MEDS ORDERED: NON-FORMULARY DRUG (Lactose-Reduced Food [Ensure Plus] 1 CAN) PO SCH (16:00)
--- NOTE | 2017-07-15 17:44 | HP ---
HISTORY AND PHYSICAL DATE OF SERVICE: 07/15/2017 CHIEF COMPLAINT: Chest pain. HISTORY: This 87-year-old gentleman with a past medical history of multiple medical problems including history of atrial fibrillation, history of heart failure, COPD, dementia, history of DJD being followed by Dr. Douglass in the out patient setting is complaining of chest pain which is felt in the anterior part of the chest, which is rather a heaviness and without radiation. No palpitations or shortness of breath. The patient came to [facility] and was admitted for evaluation and treatment. An EKG was done which showed an incomplete right bundle branch block and no acute changes except some ST-T changes. A chest x-ray was also done that showed possible right lower lobe infiltrate. The patient admitted for further evaluation and treatment. There is no history of fever, rigors. No history of headache. Troponin is elevated after admission. PAST MEDICAL HISTORY: History of atrial ablation, CHF, COPD, dementia, GERD, hypertension, hyperlipidemia, history of myocardial infarction. MEDICATIONS: Prior to admission include home medications are: 1. Flomax 0.4 daily. 2. Senna 1 tab p.o. daily. 3. Potassium 90 mg p.o. daily. 4. Ditropan 5 mg p.o. t.i.d. 5. Fleets enema daily. 6. Toprol-XL 25 mg p.o. daily. 7. Milk of magnesia 2.4 daily p.r.n. 8. Zestril 2.5 mg daily. 9. Lactose reduced with food. 10.DuoNeb t.i.d. 11.Lasix 40 mg daily. 12.Perforomist 20 mcg b.i.d. 13.Ceftin 500 mg p.o. b.i.d. 14.Pulmicort 1 mg b.i.d. 15.Dulcolax 10 mg daily p.r.n. 16.Lipitor 40 mg q.h.s. 17.Aspirin 81 mg p.o. daily. 18.Eliquis 2.5 mg b.i.d. 19.Tylenol 650 q.4h p.r.n. ALLERGIES: None. FAMILY HISTORY: History of diabetes in the family. SOCIAL HISTORY: Previous history of smoking. No history of alcohol intake. REVIEW OF SYSTEMS: ENT: No diminished hearing or vision. CARDIOVASCULAR: As mentioned earlier. RESPIRATORY: As mentioned earlier. GI: No nausea. : No dysuria. NERVOUS SYSTEM: No numbness or weakness. ALLERGY/IMMUNOLOGY: As mentioned earlier. MUSCULOSKELETAL: As mentioned earlier. HEMATOLOGY: No history of anemia. ENDOCRINE: No history of diabetes or hypothyroidism. CONSTITUTIONAL: As mentioned earlier. DERMATOLOGY: Negative. RHEUMATOLOGY: Negative. PSYCHIATRY: As mentioned earlier. PHYSICAL EXAMINATION: Alert, oriented x3. Pulse 88, blood pressure 94/61, respirations 16, temperature 98.8, pulse ox 97% on 2 L. HEENT: Conjunctivae normal. Oral mucosa moist. NECK: No jugular venous distention. No carotid bruit. No lymph node enlargement. CARDIOVASCULAR: S1, S2. No S3, no S4. RESPIRATORY: Breath sounds diminished in the bases. A few scattered rhonchi. No crackles. ABDOMEN: Soft, nontender. No mass palpable. LEGS: No edema. No swelling. NERVOUS SYSTEM: Higher functions as mentioned. Moves all four limbs. No focal motor deficits. LYMPHATICS: No lymphadenopathy in the neck, axillae or groin. SKIN: No ulcers, rash, bleeding. LAB: WBC 8.1, hemoglobin 9.6 and troponin 0.035. ASSESSMENT: 1. Chest pain possible unstable angina versus acute non ST-segment elevation myocardial infarction. 2. History of coronary artery disease. 3. Pneumonia unlikely. 4. History atrial fibrillation. 5. History of congestive heart failure. 6. Chronic obstructive pulmonary disease. 7. Dementia. 8. Gastroesophageal reflux disease. 9. Hypertension. 10.Hyperlipidemia. 11.History of degenerative joint disease. 12.History of prostate disorder. 13.History of recent urinary tract infection with sepsis. RECOMMENDATIONS AND DISCUSSION: In this 87-year-old gentleman who presented with multiple complex medical issues, we will monitor the patient closely. Continue the current management and symptomatic treatment. Otherwise at this time, I recommend to continue with current home medications and I would also recommend Cardiology consultation. Beta blockers, antiplatelet agents. The chest x-ray showing suspicious pneumonia, but clinically pneumonia seems to be unlikely at this time. We will continue to monitor and further recommendations to follow. The patient is not running a fever and the patient is not having a white count either. The repeat counts have been arranged for tomorrow. Once again the prognosis guarded. Further recommendations to follow. MMODL / IJN: [id number] /
[2017-07-15] MEDS: IPRATROPIUM-ALBUTEROL 3 ML NEB INHALATION SCH (20:16)
[2017-07-15] MEDS: FORMOTEROL FUMARATE 20 MCG/2 ML NEBU INHALATION SCH (20:16)
[2017-07-15] MEDS: BUDESONIDE 1 MG/2 ML NEBU INHALATION SCH (20:16)
[2017-07-15 20:28] LABS: Troponin I 0.026 ng/mL (0.000-0.034)
[2017-07-15 20:55] LABS: Creatine Kinase MB 1.2 ng/mL (0.0-2.4)
[2017-07-15] MEDS: CEFUROXIME 250 MG TAB PO SCH (21:19)
[2017-07-15] MEDS: APIXABAN 2.5 MG TABLET PO SCH (21:19)
[2017-07-15] MEDS: METOPROLOL TARTRATE 50 MG TAB PO SCH (21:19)
[2017-07-16 06:38] LABS: Basophils % (A) 0 %; CH 30.1; CHCM 30.2; Eosinophils # (A) 0.4 k/uL (0-0.7); Eosinophils % (A) 5 %; HCT 31.4 % (39.0-53.0); HDW 2.57; HGB 9.6 gm/dL (13.0-17.5); Hypochromasia Moderate; Luc % (Auto) 1; Lymphocytes # (A) 0.8 k/uL (1.0-4.8); Lymphocytes % (A) 11 %; MCH 30.6 pg (25.0-35.0); MCHC 30.5 g/dL (31.0-37.0); MCV 100.2 fL (80.0-100.0); Macrocytosis Slight; Mean Platelet Volume 8.2; Monocytes # (A) 0.4 k/uL (0-1.0); Monocytes % (A) 5 %; Neutrophils # (A) 6.2 k/uL (1.3-7.7); Neutrophils % (A) 78 %; RBC 3.14 m/uL (4.30-5.90); RDW 14.4 % (11.5-15.5); WBC 7.9 k/uL (3.8-10.6); WBC (Perox) 7.79
[2017-07-16 06:38] LABS: Anion Gap 6 mmol/L; Blood Urea Nitrogen 18 mg/dL (9-20); Calcium 8.4 mg/dL (8.4-10.2); Carbon Dioxide 33 mmol/L (22-30); Chloride 100 mmol/L (98-107); Cholesterol 109 mg/dL (<200); Glucose 82 mg/dL (74-99); HDL Cholesterol 29 mg/dL (40-60); Non-African American GFR(MDRD) >60 (>60 ml/min/1.73 sqM); Potassium 4.6 mmol/L (3.5-5.1); Sodium 139 mmol/L (137-145)
[2017-07-16] MEDS: BUDESONIDE 1 MG/2 ML NEBU INHALATION SCH ×2 (08:11→19:43)
[2017-07-16] MEDS: IPRATROPIUM-ALBUTEROL 3 ML NEB INHALATION SCH ×3 (08:11→19:43)
[2017-07-16] MEDS: FORMOTEROL FUMARATE 20 MCG/2 ML NEBU INHALATION SCH ×2 (08:11→19:43)
[2017-07-16] MEDS: CEFUROXIME 250 MG TAB PO SCH ×2 (08:57→20:16)
[2017-07-16] MEDS: SENNOSIDES-DOCUSATE SODIUM 1 EACH TAB PO SCH (08:57)
[2017-07-16] MEDS: TAMSULOSIN 0.4 MG CAP.ER.24H PO SCH (08:57)
[2017-07-16] MEDS: METOPROLOL TARTRATE 50 MG TAB PO SCH ×2 (08:57→20:17)
[2017-07-16] MEDS: OXYBUTYNIN CHLORIDE 5 MG TAB PO SCH ×3 (08:57→20:17)
[2017-07-16] MEDS: LISINOPRIL 2.5 MG TAB PO SCH (08:58)
[2017-07-16] MEDS: ATORVASTATIN 80 MG TAB PO SCH (08:58)
[2017-07-16] MEDS: APIXABAN 2.5 MG TABLET PO SCH ×2 (08:58→20:16)
[2017-07-16] MEDS: FUROSEMIDE 40 MG TAB PO SCH (08:58)
[2017-07-16] MEDS: ASPIRIN 325 MG TAB PO SCH (08:58)
[2017-07-16 13:31] VITALS: RESP 18
--- NOTE | 2017-07-16 14:37 | P.CRDCN ---
History of Present Illness Consult date: 07/16/17 Requesting physician: Brenna Fry Reason for Consult (text): chest pain, elevated troponin Chief complaint: suprapubic pain History of present illness: This is a pleasant 87-year-old -Swedish gentleman with history of chronic atrial fibrillation, ischemic cardiomyopathy, prior OR, prior cardiac catheterization, details unknown at this time, recently hospitalized for urosepsis, has chronic Corado catheter due to complications of BPH. He presented the emergency department from [facility] care facility with complaints of suprapubic pain per the patient. He denies ever having any complaints of chest discomfort or shortness of breath. He feels that his Corado catheter was not draining correctly and was subsequently causing pain. EKG on admission showed atrial fibrillation with controlled ventricular response. Chest x-ray showed right lower lobe infiltrate and small effusion, no overt failure. Laboratory values showed BUN of 15, creatinine 0.89, hemoglobin 9.6, and minimally elevated first troponin of 0.035 with subsequent troponin 0.032 and 0.026. His proBNP was 1510. Upon examination, patient is resting comfortably in bed. He denies any complaints of chest discomfort, shortness of breath, dizziness, palpitations or syncope. He has no current complaints of suprapubic pain. He does complain of a cough with yellow sputum. Past Medical History Past Medical History: Atrial Fibrillation, Heart Failure, COPD, Dementia, GERD/ Reflux, Hyperlipidemia, Hypertension, Memory Impairment, Myocardial Infarction ( OR), Osteoarthritis (OA), Prostate Disorder Additional Past Medical History / Comment(s): Pt recently admitted 07/05/17 with UTI/sepsis. Other hx: Afib with RVR, mitral regurg, tricuspid regurt, moderate pulmonary edema, O2 2L/NC ATC, memory problems, BPH with chronic indwelling cath, hematuria, DJD. Last Myocardial Infarction Date:: 1973 History of Any Multi-Drug Resistant Organisms: None Reported Past Surgical History: Heart Catheterization, Orthopedic Surgery Additional Past Surgical History / Comment(s): right knee ligament repair, bilateral cataracts removed with lens implants. Past Anesthesia/Blood Transfusion Reactions: No Reported Reaction Smoking Status: Former smoker - Past Family History Father Additional Family Medical History / Comment(s): heart problems not sure what at age 73 Mother Family Medical History: Diabetes Mellitus Additional Family Medical History / Comment(s): at age 69 from complications from diabetes Medications and Allergies Home Medications Medication Instructions Recorded Confirmed Type Tamsulosin HCl [Flomax] 0.4 mg PO DAILY 03/01/17 07/15/17 History Atorvastatin [Lipitor] 40 mg PO HS@2100 05/10/17 07/15/17 History Lisinopril [Zestril] 2.5 mg PO DAILY 05/10/17 07/15/17 History Metoprolol Succinate [Toprol XL] 25 mg PO DAILY 05/10/17 07/15/17 History Oxybutynin Chloride [Ditropan] 5 mg PO TID 05/10/17 07/15/17 History Potassium Gluconate 99 mg PO DAILY@1700 07/02/17 07/15/17 History Acetaminophen Tab [Tylenol] 650 mg PO Q4HR PRN tab 07/08/17 07/15/17 Rx Apixaban [Eliquis] 2.5 mg PO BID tablet 07/08/17 07/15/17 Rx Budesonide [Pulmicort] 1 mg INHALATION RT-BID nebu 07/08/17 07/15/17 Rx Cefuroxime Axetil [Ceftin] 500 mg PO BID #22 tab 07/08/17 07/15/17 Rx Formoterol Fumarate [Perforomist] 20 mcg INHALATION RT-BID #60 nebu 07/08/1710/30 Rx Furosemide [Lasix] 40 mg PO DAILY tab 07/08/17 07/15/17 Rx Sennosides/Docusate Sodium [[place] 1 tab PO DAILY #1 tab 07/08/17 07/15/17 Rx Colace] Aspirin 81 mg PO DAILY@1700 07/15/17 07/15/17 History Bisacodyl [Dulcolax] 10 mg RECTAL DAILY PRN 07/15/17 07/15/17 History Ipratropium-Albuterol Nebulize 3 ml INHALATION RT-TID 07/15/17 07/15/17 History [Duoneb 0.5 mg-3 mg/3 ml Soln] Lactose-Reduced Food [Ensure Plus] 1 can PO TID 07/15/17 07/15/17 History Magnesium Hydroxide [Milk of 2,400 mg PO DAILY PRN 07/15/17 07/15/17 History Magnesia] Na Phos,M-B/Na Phos,Di-Ba [Fleet 133 ml RECTAL DAILY PRN 07/15/17 07/15/17 History Adult] Allergies Allergy/AdvReac Type Severity Reaction Status Date / Time No Known Allergies Allergy Verified 07/15/17 07:43 Physical Exam Vitals: Vital Signs Temp Pulse Pulse Resp BP BP Pulse Ox 07/16/17 08:31 90 07/16/17 08:25 88 07/16/17 08:24 88 07/16/17 08:14 88 07/16/17 04:00 97.2 F L 69 16 119/66 98 07/16/17 00:00 97.1 F L 87 16 124/69 97 07/15/17 20:00 96.9 F L 87 16 92/61 100 07/15/17 15:36 97.2 F L 74 16 121/54 95 07/15/17 12:33 96.8 F L 88 16 94/61 97 07/15/17 11:33 76 18 118/67 98 07/15/17 10:06 81 18 108/66 98 07/15/17 09:21 82 16 101/71 91 L Intake and Output 07/15/17 07/16/17 07/16/17 22:59 06:59 14:59 Intake Total 10 10 Output Total 1200 Balance 10 -1190 Intake: IV 10 10 saline flush 10 10 Output: Urine 1200 Other: Voiding Method Indwelling Catheter Indwelling Catheter Weight 85.6 kg PHYSICAL EXAMINATION: HEENT: Head is atraumatic, normocephalic. Pupils equal, round. Neck is supple. There is no elevated jugular venous pressure. HEART EXAMINATION: Heart sounds irregularly irregular, S1 and S2 normal. No murmur or gallop heard. CHEST EXAMINATION: Lungs reveal diffuse expiratory wheezing with scattered rhonchi and crackles in the right lower lobe. No chest wall tenderness is noted on palpation or with deep breathing. ABDOMEN: Soft, nontender. Bowel sounds are heard. No organomegaly noted. EXTREMITIES: 2+ peripheral pulses with no evidence of peripheral edema and no calf tenderness noted. NEUROLOGIC patient is awake, alert and oriented x3. . Results 07/16/17 05:49 07/16/17 05:43 Cardiac Enzymes 07/15/17 07/15/17 Range/Units 13:27 19:24 CK-MB (CK-2) 0.8 1.2 (0.0-2.4) ng/mL Troponin I 0.032 0.026 (0.000-0.034) ng/mL Lipids 07/16/17 Range/Units 05:43 Triglycerides 91 (<150) mg/dL Cholesterol 109 (<200) mg/dL HDL Cholesterol 29 L (40-60) mg/dL CBC 07/16/17 Range/Units 05:49 WBC 7.9 (3.8-10.6) k/uL RBC 3.14 L (4.30-5.90) m/uL Hgb 9.6 L (13.0-17.5) gm/dL Hct 31.4 L (39.0-53.0) % Plt Count 258 (150-450) k/uL Comprehensive Metabolic Panel 07/16/17 Range/Units 05:43 Sodium 139 (137-145) mmol/L Potassium 4.6 (3.5-5.1) mmol/L Chloride 100 (98-107) mmol/L Carbon Dioxide 33 H (22-30) mmol/L BUN 18 (9-20) mg/dL Creatinine 0.90 (0.66-1.25) mg/dL Glucose 82 (74-99) mg/dL Calcium 8.4 (8.4-10.2) mg/dL Current Medications Generic Name Dose Route Start Last Admin Trade Name Freq PRN Reason Stop Dose Admin Acetaminophen 650 mg 07/15/17 13:02 Tylenol Tab PO Q4HR PRN Fever and/or Mild Pain Albuterol/Ipratropium 3 ml 07/15/17 20:00 07/16/17 08:11 Duoneb 0.5 Mg-3 Mg/3 Ml Soln INHALATION 3 ml RT-TID ANNIKA Administration Apixaban 2.5 mg 07/15/17 21:00 07/15/17 21:19 Eliquis PO 2.5 mg BID ANNIKA Administration Aspirin 325 mg 07/16/17 09:00 Aspirin PO DAILY [facility] Atorvastatin Calcium 80 mg 07/16/17 09:00 Lipitor PO DAILY [facility] Bisacodyl 10 mg 07/15/17 13:02 Dulcolax RECTAL DAILY PRN CONSTIPATION Budesonide 1 mg 07/15/17 20:00 07/16/17 08:11 Pulmicort INHALATION 1 mg RT-BID ANNIKA Administration Cefuroxime Axetil 500 mg 07/15/17 21:00 07/15/17 21:19 Ceftin PO 500 mg BID [facility] Administration Formoterol Fumarate 20 mcg 07/15/17 20:00 07/16/17 08:11 Perforomist INHALATION 20 mcg RT-BID [facility] Administration Furosemide 40 mg 07/16/17 09:00 Lasix PO DAILY [facility] Lisinopril 2.5 mg 07/16/17 09:00 Zestril PO DAILY [facility] Magnesium Hydroxide 2,400 mg 07/15/17 13:02 Milk Of Magnesia PO DAILY PRN Constipation Metoprolol Tartrate 50 mg 07/15/17 21:00 07/15/17 21:19 Lopressor PO 50 mg BID [facility] Administration Morphine Sulfate 4 mg 07/15/17 09:24 Morphine Sulfate (Inj) IV Q5M PRN Chest Pain Nitroglycerin 0.4 mg 07/15/17 09:24 Nitrostat SUBLINGUAL Q5M PRN Chest Pain Oxybutynin Chloride 5 mg 07/15/17 16:00 07/15/17 21:19 Ditropan PO 5 mg TID [facility] Administration Potassium Chloride 1.3 meq 07/15/17 17:00 07/15/17 15:31 Potassium Chloride Oral Liquid PO 1.3 meq DAILY@1700 [facility] Administration Senna/Docusate Sodium 1 each 07/16/17 09:00 Senokot-S PO DAILY [facility] Sodium Biphosphate/Sodium Phosphate 133 ml 07/15/17 15:09 Fleet Adult RECTAL DAILY PRN Constipation Tamsulosin HCl 0.4 mg 07/16/17 09:00 Flomax PO DAILY [facility] Intake and Output 07/15/17 07/16/17 07/16/17 22:59 06:59 14:59 Intake Total 10 10 Output Total 1200 Balance 10 -1190 Intake: IV 10 10 saline flush 10 10 Output: Urine 1200 Other: Voiding Method Indwelling Catheter Indwelling Catheter Weight 85.6 kg 07/16/17 05:49 07/16/17 05:43 EKG Interpretations (text) Atrial fibrillation with controlled ventricular response Assessment and Plan Assessment: #1 suprapubic pain with recent urosepsis and chronic Corado catheter #2 chronic atrial fibrillation with controlled ventricular response #3 ischemic cardiomyopathy with an ejection fraction of 20-25% #4 history of OR with prior cardiac catheterization #5 minimal troponin elevation not indicative of acute coronary event Plan: From cardiology's perspective, medications were reviewed and will continue the same. Continue to monitor patient for further episodes of chest discomfort which he denies at this point. Further recommendations to follow. [employer] note has been reviewed, I agree with a documented findings and plan of care. Patient was seen and examined.
[2017-07-16] MEDS: POTASSIUM CHLORIDE ORAL LIQUID 40 MEQ/30 ML CUP PO SCH (17:11)
[2017-07-17 06:22] LABS: Basophils # (A) 0.1 k/uL (0-0.2); Basophils % (A) 1 %; CH 30.3; CHCM 30.2; Eosinophils # (A) 0.5 k/uL (0-0.7); Eosinophils % (A) 7 %; HCT 30.2 % (39.0-53.0); HDW 2.55; HGB 9.3 gm/dL (13.0-17.5); Hypochromasia Moderate; Luc # (Auto) 0.14; Luc % (Auto) 2; Lymphocytes % (A) 13 %; MCH 30.8 pg (25.0-35.0); MCHC 30.7 g/dL (31.0-37.0); MCV 100.4 fL (80.0-100.0); Macrocytosis Slight; Mean Platelet Volume 8.2; Monocytes # (A) 0.4 k/uL (0-1.0); Monocytes % (A) 5 %; Neutrophils # (A) 5.2 k/uL (1.3-7.7); Neutrophils % (A) 72 %; RBC 3.01 m/uL (4.30-5.90); RDW 14.4 % (11.5-15.5); WBC 7.2 k/uL (3.8-10.6); WBC (Perox) 7.12
[2017-07-17 06:34] LABS: Anion Gap 7 mmol/L; Blood Urea Nitrogen 17 mg/dL (9-20); Calcium 8.2 mg/dL (8.4-10.2); Carbon Dioxide 30 mmol/L (22-30); Chloride 103 mmol/L (98-107); Glucose 105 mg/dL (74-99); Non-African American GFR(MDRD) >60 (>60 ml/min/1.73 sqM); Potassium 4.2 mmol/L (3.5-5.1); Sodium 140 mmol/L (137-145)
[2017-07-17] MEDS: APIXABAN 2.5 MG TABLET PO SCH (08:47)
[2017-07-17] MEDS: ASPIRIN 325 MG TAB PO SCH (08:47)
[2017-07-17] MEDS: FUROSEMIDE 40 MG TAB PO SCH (08:48)
[2017-07-17] MEDS: ATORVASTATIN 80 MG TAB PO SCH (08:48)
[2017-07-17] MEDS: LISINOPRIL 2.5 MG TAB PO SCH (08:48)
[2017-07-17] MEDS: CEFUROXIME 250 MG TAB PO SCH (08:48)
[2017-07-17] MEDS: METOPROLOL TARTRATE 50 MG TAB PO SCH (08:48)
[2017-07-17] MEDS: OXYBUTYNIN CHLORIDE 5 MG TAB PO SCH ×2 (08:48→16:02)
[2017-07-17] MEDS: TAMSULOSIN 0.4 MG CAP.ER.24H PO SCH (08:49)
[2017-07-17] MEDS: SENNOSIDES-DOCUSATE SODIUM 1 EACH TAB PO SCH (08:49)
[2017-07-17] MEDS: BUDESONIDE 1 MG/2 ML NEBU INHALATION SCH (09:08)
[2017-07-17] MEDS: IPRATROPIUM-ALBUTEROL 3 ML NEB INHALATION SCH ×2 (09:08→13:36)
[2017-07-17] MEDS: FORMOTEROL FUMARATE 20 MCG/2 ML NEBU INHALATION SCH (09:08)
--- NOTE | 2017-07-17 11:50 | P.PN ---
Subjective Progress Note Date: 07/17/17 Principal diagnosis: suprapubic pain This is a pleasant 87-year-old -[place] gentleman with history of chronic atrial fibrillation, ischemic cardiomyopathy, prior ME, prior cardiac catheterization, details unknown at this time, recently hospitalized for urosepsis, has chronic Gamino catheter due to complications of BPH. He presented the emergency department from [facility] with complaints of suprapubic pain per the patient. He denies ever having any complaints of chest discomfort or shortness of breath. He feels that his Gamino catheter was not draining correctly and was subsequently causing pain. EKG on admission showed atrial fibrillation with controlled ventricular response. Chest x-ray showed right lower lobe infiltrate and small effusion, no overt failure. Laboratory values showed BUN of 15, creatinine 0.89, hemoglobin 9.6, and minimally elevated first troponin of 0.035 with subsequent troponin 0.032 and 0.026. His proBNP was 1510. Upon examination, patient is sitting up in a chair. He denies any complaints of chest discomfort, shortness of breath, dizziness, palpitations or syncope. He has no current complaints of suprapubic pain as he feels his gamino catheter is currently draining adequately. He does continue to complain of a cough with yellow sputum. Objective - Vital Signs Vital signs: Vital Signs Temp 98.4 F 07/17/17 08:00 Pulse 88 07/17/17 09:35 Resp 18 07/17/17 08:00 BP 121/58 07/17/17 08:00 Pulse Ox 95 07/17/17 09:00 Intake & Output 07/16/17 07/17/17 07/17/17 18:59 06:59 18:59 Intake Total 100 360 120 Output Total 1650 1100 Balance -1550 -740 120 Weight 85.6 kg 84.8 kg Intake: Oral 100 360 120 Output: Urine 1650 1100 Other: Voiding Method Indwelling Catheter Indwelling Catheter Indwelling Catheter # Voids 0 # Bowel Movements 0 - Exam PHYSICAL EXAMINATION: HEENT: Head is atraumatic, normocephalic. Pupils equal, round. Neck is supple. There is no elevated jugular venous pressure. HEART EXAMINATION: Heart sounds irregularly irregular, S1 and S2 normal. No murmur or gallop heard. CHEST EXAMINATION: Lungs reveal diffuse expiratory wheezing with scattered rhonchi and crackles in the right lower lobe. No chest wall tenderness is noted on palpation or with deep breathing. ABDOMEN: Soft, nontender. Bowel sounds are heard. No organomegaly noted. EXTREMITIES: 2+ peripheral pulses with no evidence of peripheral edema and no calf tenderness noted. NEUROLOGIC patient is awake, alert and oriented x3. - Labs CBC & Chem 7: 07/17/17 05:48 07/17/17 05:48 Labs: Abnormal Lab Results - Last 24 Hours (Table) 07/17/17 07/17/17 Range/Units 05:48 05:48 RBC 3.01 L (4.30-5.90) m/uL Hgb 9.3 L (13.0-17.5) gm/dL Hct 30.2 L (39.0-53.0) % MCV 100.4 H (80.0-100.0) fL MCHC 30.7 L (31.0-37.0) g/dL Glucose 105 H (74-99) mg/dL Calcium 8.2 L (8.4-10.2) mg/dL Assessment and Plan Assessment: #1 suprapubic pain with recent urosepsis and chronic Gamino catheter #2 chronic atrial fibrillation with controlled ventricular response #3 ischemic cardiomyopathy with an ejection fraction of 20-25% #4 history of ME with prior cardiac catheterization #5 minimal troponin elevation not indicative of acute coronary syndrome Plan: From cardiology's perspective, medications were reviewed and will continue the same. No further inpatient cardiac work-up at this time. He will follow-up in the office in about 4 weeks. [employer]MENT AIDE note has been reviewed, I agree with a documented findings and plan of care. Patient was seen and examined.
[2017-07-17 14:11] VITALS: BP 129/60; PULSE 68; TEMP 98
--- NOTE | 2017-07-17 14:50 | P.PN ---
Subjective Progress Note Date: 07/16/17 Principal diagnosis: Chest pain Patient is a 87-year-old male with a known history of chronic atrial fibrillation and CHF with systolic dysfunction COPD dementia and other multiple medical problems came to the hospital with complaints of anterior retrosternal chest pain and heaviness. No radiation. No associated shortness of breath. No nausea vomiting or abdominal pain. EKG showed incomplete right bundle branch block and no acute ST-T wave changes Chest x-ray showed possible right lower lobe infiltrate Patient was recently having sepsis secondary to urinary tract infection and is on Corado catheter chronically. 07/16/2017 Patient had Corado catheter replaced area patient denied any suprapubic pain now area no complaints of chest pain. No fever no chills. No acute overnight issues. Anticipate discharged in next 24 hours with cardiology clearance. Objective - Vital Signs Vital signs: Vital Signs Temp 97.8 F 07/16/17 16:00 Pulse 82 07/16/17 20:02 Resp 18 07/16/17 16:00 BP 105/67 07/16/17 16:00 Pulse Ox 96 07/16/17 16:00 Intake & Output 07/16/17 07/16/17 07/17/17 06:59 18:59 06:59 Intake Total 20 100 Output Total 1200 1650 Balance -1180 -1550 Weight 85.6 kg 85.6 kg Intake: IV 20 saline flush 20 Oral 100 Output: Urine 1200 1650 Other: Voiding Method Indwelling Catheter Indwelling Catheter - Exam PHYSICAL EXAMINATION: Patient is lying in the bed comfortably, no acute distress, awake alert and oriented 2.. HEENT: Normocephalic. Neck is supple. Pupils reactive. Nostrils clear. Oral cavity is moist. Ears reveal no drainage. Neck reveals no JVD, carotid bruits, or thyromegaly. CHEST EXAMINATION: Trachea is central. Symmetrical expansion. Lung huitron clear to auscultation and percussion. CARDIAC: Normal S1, S2 with no gallops. No murmurs ABDOMEN: Soft. Bowel sounds normal. No organomegaly. No abdominal bruits. Corado catheter with a left thigh back in place. Extremities: reveal no edema. No clubbing or cyanosis Neurologically awake, alert, oriented x3 with well-coordinated movements. No focal deficits noted Skin: No rash or skin lesions. Psychiatric: Operative. Nonsuicidal Musculoskeletal: No joint swelling or deformity. Normal range of motion. - Labs CBC & Chem 7: 07/17/17 05:48 07/17/17 05:48 Labs: Abnormal Lab Results - Last 24 Hours (Table) 07/16/17 07/16/17 Range/Units 05:43 05:49 RBC 3.14 L (4.30-5.90) m/uL Hgb 9.6 L (13.0-17.5) gm/dL Hct 31.4 L (39.0-53.0) % MCV 100.2 H (80.0-100.0) fL MCHC 30.5 L (31.0-37.0) g/dL Lymphocytes # 0.8 L (1.0-4.8) k/uL Carbon Dioxide 33 H (22-30) mmol/L HDL Cholesterol 29 L (40-60) mg/dL Assessment and Plan Assessment: #1 suprapubic pain with recent sepsis and chronic Corado catheter. Possible obstruction the Corado catheter which has been replaced now. #2 chest pain atypical with mild elevated troponin level. Unlikely ACS. cardiology is on board #3 chronic atrial fibrillation on anticoagulation. #4 ischemic cardio myopathy his ejection fraction 20% #5 COPD #7 dementia #8 GERD #9 hypertension #10 hyperlipidemia #11 degenerative joint disease #12 History of prostate disorder Plan: Patient will be continued on home medications and Corado catheter has been changed.. Continue the telemetry monitoring and cardiology recommendations. Continue the attic regulation. And follow closely and anticipate discharge next 24 hours.
--- NOTE | 2017-07-17 14:55 | P.DS ---
Providers Date of admission: 07/15/17 09:24 Expected date of discharge: 07/17/17 Attending physician: Brenna Fry Consults: 07/15/17 09:24 Consult Physician Urgent Consulting Provider: Lobo Winchester Consult Reason/Comments: cp Do you want consulting provider notified?: Yes Primary care physician: Jaycob Douglass Hospital Course: Discharge diagnosis #1 suprapubic pain with recent sepsis and chronic Corado catheter. Possible obstruction the Corado catheter which has been replaced now. #2 chest pain atypical with mild elevated troponin level. Unlikely ACS. cardiology is on board. No further workup needed. #3 chronic atrial fibrillation on anticoagulation. #4 ischemic cardio myopathy his ejection fraction 20% #5 COPD #7 dementia #8 GERD #9 hypertension #10 hyperlipidemia #11 degenerative joint disease #12 History of prostate disorder Hospital course Patient is a 87-year-old male with a known history of chronic atrial fibrillation and CHF with systolic dysfunction COPD dementia and other multiple medical problems came to the hospital with complaints of anterior retrosternal chest pain and heaviness. No radiation. No associated shortness of breath. No nausea vomiting or abdominal pain. EKG showed incomplete right bundle branch block and no acute ST-T wave changes Chest x-ray showed possible right lower lobe infiltrate Patient was recently having sepsis secondary to urinary tract infection and is on Corado catheter chronically. 07/16/2017 Patient had Corado catheter replaced area patient denied any suprapubic pain now area no complaints of chest pain. No fever no chills. No acute overnight issues. Anticipate discharged in next 24 hours with cardiology clearance. 07/17/2017 Patient denied any new complaints today. Cardiogenic months further workup. no telemetry changes. patient is cleared to be discharged. Discharge physical examination was done Total time taken greater than 35 minutes including 18 minutes for counseling and coordination of care. Patient Condition at Discharge: Good Plan - Discharge Summary Discharge Rx Participant: No New Discharge Prescriptions: Continue Tamsulosin HCl [Flomax] 0.4 mg PO DAILY Oxybutynin Chloride [Ditropan] 5 mg PO TID Metoprolol Succinate [Toprol XL] 25 mg PO DAILY Lisinopril [Zestril] 2.5 mg PO DAILY Atorvastatin [Lipitor] 40 mg PO HS@2100 Potassium Gluconate 99 mg PO DAILY@1700 Acetaminophen Tab [Tylenol] 650 mg PO Q4HR PRN tab PRN Reason: Fever And/Or Mild Pain Formoterol Fumarate [Perforomist] 20 mcg INHALATION RT-BID #60 nebu Apixaban [Eliquis] 2.5 mg PO BID tablet Budesonide [Pulmicort] 1 mg INHALATION RT-BID nebu Furosemide [Lasix] 40 mg PO DAILY tab Sennosides/Docusate Sodium [Kenyetta Colace] 1 tab PO DAILY #1 tab Cefuroxime Axetil [Ceftin] 500 mg PO BID #22 tab Na Phos,M-B/Na Phos,Di-Ba [Fleet Adult] 133 ml RECTAL DAILY PRN PRN Reason: Constipation Bisacodyl [Dulcolax] 10 mg RECTAL DAILY PRN PRN Reason: CONSTIPATION Lactose-Reduced Food [Ensure Plus] 1 can PO TID Ipratropium-Albuterol Nebulize [Duoneb 0.5 mg-3 mg/3 ml Soln] 3 ml INHALATION RT-TID Aspirin 81 mg PO DAILY@1700 Magnesium Hydroxide [Milk of Magnesia] 2,400 mg PO DAILY PRN PRN Reason: Constipation Discharge Medication List Tamsulosin HCl [Flomax] 0.4 mg PO DAILY 03/01/17 [History] Atorvastatin [Lipitor] 40 mg PO HS@2100 05/10/17 [History] Lisinopril [Zestril] 2.5 mg PO DAILY 05/10/17 [History] Metoprolol Succinate [Toprol XL] 25 mg PO DAILY 05/10/17 [History] Oxybutynin Chloride [Ditropan] 5 mg PO TID 05/10/17 [History] Potassium Gluconate 99 mg PO DAILY@1700 07/02/17 [History] Acetaminophen Tab [Tylenol] 650 mg PO Q4HR PRN tab 07/08/17 [Rx] Apixaban [Eliquis] 2.5 mg PO BID tablet 07/08/17 [Rx] Budesonide [Pulmicort] 1 mg INHALATION RT-BID nebu 07/08/17 [Rx] Cefuroxime Axetil [Ceftin] 500 mg PO BID #22 tab 07/08/17 [Rx] Formoterol Fumarate [Perforomist] 20 mcg INHALATION RT-BID #60 nebu 07/08/17 [Rx ] Furosemide [Lasix] 40 mg PO DAILY tab 07/08/17 [Rx] Sennosides/Docusate Sodium [Kenyetta Colace] 1 tab PO DAILY #1 tab 07/08/17 [Rx] Aspirin 81 mg PO DAILY@1700 07/15/17 [History] Bisacodyl [Dulcolax] 10 mg RECTAL DAILY PRN 07/15/17 [History] Ipratropium-Albuterol Nebulize [Duoneb 0.5 mg-3 mg/3 ml Soln] 3 ml INHALATION RT -TID 07/15/17 [History] Lactose-Reduced Food [Ensure Plus] 1 can PO TID 07/15/17 [History] Magnesium Hydroxide [Milk of Magnesia] 2,400 mg PO DAILY PRN 07/15/17 [History] Na Phos,M-B/Na Phos,Di-Ba [Fleet Adult] 133 ml RECTAL DAILY PRN 07/15/17 [ History] Follow up Appointment(s)/Referral(s): Jaycob Douglass MD [Primary Care Provider] - 1-2 days Miri Euceda [NON-STAFF] - 1 Week Discharge Disposition: TRANSFER TO SNF/ECF
[2017-07-17] MEDS: POTASSIUM CHLORIDE ORAL LIQUID 40 MEQ/30 ML CUP PO SCH (16:01)
== END 2017-07-17 16:33 ==
LOC: EC 07:29 → 6SEL 09:24
PROVIDERS: ADMIT Hospitalist; ATTEND Hospitalist
DX: R10.30 Lower abdominal pain, unspecified (principal); R07.89 Other chest pain; I48.2 Chronic atrial fibrillation; I25.5 Ischemic cardiomyopathy; R74.8 Abnormal levels of other serum enzymes; F03.90 Unspecified dementia, unspecified severity, without behavioral disturbance, psychotic disturbance, mood disturbance, and anxiety; J44.9 Chronic obstructive pulmonary disease, unspecified; K21.9 Gastro-esophageal reflux disease without esophagitis; I50.22 Chronic systolic (congestive) heart failure; I11.0 Hypertensive heart disease with heart failure; E78.5 Hyperlipidemia, unspecified; M19.90 Unspecified osteoarthritis, unspecified site; I25.2 Old myocardial infarction; Z79.01 Long term (current) use of anticoagulants; N40.0 Benign prostatic hyperplasia without lower urinary tract symptoms; R05 Cough; Z79.899 Other long term (current) drug therapy; Z79.51 Long term (current) use of inhaled steroids; Z79.82 Long term (current) use of aspirin; Z87.891 Personal history of nicotine dependence; I34.0 Nonrheumatic mitral (valve) insufficiency; R31.9 Hematuria, unspecified; J81.1 Chronic pulmonary edema; Z99.81 Dependence on supplemental oxygen; N39.0 Urinary tract infection, site not specified; I25.10 Atherosclerotic heart disease of native coronary artery without angina pectoris; I49.01 Ventricular fibrillation
CPT/HCPCS: 96374; 99291; 36415; 94640 ×4; 93005; 83880; 80061; 80053; 80048 ×2; 82550; 82553; 83690; 83735; 84484; 85025 ×3; 85610; 85730; 71020; G0378 ×3; J2270

== ENCOUNTER 2017-09-24 17:58 | Emergency (ER) | payer MEDICARE ==
[2017-09-24 18:04] VITALS: RESP 18
--- NOTE | 2017-09-24 18:32 | ED ---
Male Urogenital HPI - General Chief complaint: Urogenital Stated complaint: Urinary issues Time Seen by Provider: 09/24/17 18:30 Source: patient, RN notes reviewed Mode of arrival: wheelchair Limitations: physical limitation - History of Present Illness Initial comments: 87-year-old male presents emergency department for Corado catheter issues. Patient has had a chronic Corado for several years. Patient states that he had a new Corado placed today states that is not draining. He states that they also left him a Corado with a large bag and several leg bag. Patient states that he feels he has to go but is not draining. Patient denies any fever, chills, back pain, headache, dizziness, chest or shortness of breath. - Related Data Home Medications Medication Instructions Recorded Confirmed Tamsulosin HCl [Flomax] 0.4 mg PO DAILY 03/01/17 07/15/17 Atorvastatin [Lipitor] 40 mg PO HS@2100 05/10/17 07/15/17 Lisinopril [Zestril] 2.5 mg PO DAILY 05/10/17 07/15/17 Metoprolol Succinate [Toprol XL] 25 mg PO DAILY 05/10/17 07/15/17 Oxybutynin Chloride [Ditropan] 5 mg PO TID 05/10/17 07/15/17 Potassium Gluconate 99 mg PO DAILY@1700 07/02/17 07/15/17 Aspirin 81 mg PO DAILY@1700 07/15/17 07/15/17 Bisacodyl [Dulcolax] 10 mg RECTAL DAILY PRN 07/15/17 07/15/17 Ipratropium-Albuterol Nebulize 3 ml INHALATION RT-TID 07/15/17 07/15/17 [Duoneb 0.5 mg-3 mg/3 ml Soln] Lactose-Reduced Food [Ensure Plus] 1 can PO TID 07/15/17 07/15/17 Magnesium Hydroxide [Milk of 2,400 mg PO DAILY PRN 07/15/17 07/15/17 Magnesia] Na Phos,M-B/Na Phos,Di-Ba [Fleet 133 ml RECTAL DAILY PRN 07/15/17 07/15/17 Adult] Previous Rx's Medication Instructions Recorded Acetaminophen Tab [Tylenol] 650 mg PO Q4HR PRN tab 07/08/17 Apixaban [Eliquis] 2.5 mg PO BID tablet 07/08/17 Budesonide [Pulmicort] 1 mg INHALATION RT-BID nebu 07/08/17 Cefuroxime Axetil [Ceftin] 500 mg PO BID #22 tab 07/08/17 Formoterol Fumarate [Perforomist] 20 mcg INHALATION RT-BID #60 nebu 07/08/17 Furosemide [Lasix] 40 mg PO DAILY tab 07/08/17 Sennosides/Docusate Sodium [Kenyetta 1 tab PO DAILY #1 tab 07/08/17 Colace] Allergies Allergy/AdvReac Type Severity Reaction Status Date / Time No Known Allergies Allergy Verified 09/24/17 18:04 Review of Systems ROS Statement: Those systems with pertinent positive or pertinent negative responses have been documented in the HPI. ROS Other: All systems not noted in ROS Statement are negative. Past Medical History Past Medical History: Atrial Fibrillation, Heart Failure, COPD, Dementia, GERD/ Reflux, Hyperlipidemia, Hypertension, Memory Impairment, Myocardial Infarction ( [place]), Osteoarthritis (OA), Prostate Disorder Additional Past Medical History / Comment(s): Pt recently admitted 07/05/17 with UTI/sepsis. Other hx: Afib with RVR, mitral regurg, tricuspid regurt, moderate pulmonary edema, O2 2L/NC ATC, memory problems, BPH with chronic indwelling cath, hematuria, DJD. Last Myocardial Infarction Date:: 1973 History of Any Multi-Drug Resistant Organisms: None Reported Past Surgical History: Heart Catheterization, Orthopedic Surgery Additional Past Surgical History / Comment(s): right knee ligament repair, bilateral cataracts removed with lens implants. Past Anesthesia/Blood Transfusion Reactions: No Reported Reaction Past Psychological History: No Psychological Hx Reported Smoking Status: Former smoker Past Alcohol Use History: None Reported Past Drug Use History: None Reported - Past Family History Father Additional Family Medical History / Comment(s): heart problems not sure what at age 73 Mother Family Medical History: Diabetes Mellitus Additional Family Medical History / Comment(s): at age 69 from complications from diabetes General Exam Limitations: physical limitation General appearance: alert, in no apparent distress Respiratory exam: Present: normal lung sounds bilaterally. Absent: respiratory distress, wheezes, rales, rhonchi, stridor Cardiovascular Exam: Present: regular rate, normal rhythm, normal heart sounds. Absent: systolic murmur, diastolic murmur, rubs, gallop, clicks GI/Abdominal exam: Present: soft, normal bowel sounds. Absent: distended, tenderness, guarding, rebound, rigid Skin exam: Present: warm, dry, intact, normal color. Absent: rash Course Vital Signs 09/24/17 18:02 Temperature 97.5 F L Pulse Rate 79 Respiratory 18 Rate Blood Pressure 145/76 O2 Sat by Pulse 98 Oximetry Medical Decision Making - Medical Decision Making 87-year-old male present emergency department for full catheter issues. Patient 's Corado catheter was fixed and is draining well at this time. Patient will be discharged. Disposition Clinical Impression: Corado catheter problem, Urinary retention Disposition: HOME SELF-CARE Condition: Stable Instructions: Corado Catheter Placement and Care (ED) Additional Instructions: Please return to the Emergency Department if symptoms worsen or any other concerns. Referrals: Jaycob Douglass MD [Primary Care Provider] - 1-2 days Time of Disposition: 19:26
[2017-09-24 19:55] LABS: Appearance,Urine Clear (Clear); Bacteria,Urine Rare /hpf; Bilirubin,Urine Negative (Negative); Blood,Urine Large (Negative); Color,Urine Light Yellow; Glucose,Urine (UA) Negative (Negative); Hyaline Casts,Urine 3 /lpf (0-2); Ketones,Urine Negative (Negative); Leukocyte Esterase,Urine Large (Negative); Mucus,Urine Rare /hpf; Nitrite,Urine Negative (Negative); Protein,Urine Trace (Negative); RBC,Urine 59 /hpf (0-5); Specific Gravity,Urine 1.006 (1.001-1.035); Urobilinogen,Urine <2.0 mg/dL (<2.0); WBC,Urine 32 /hpf (0-5)
[2017-09-24 20:02] VITALS: BP 122/77; PULSE 69; TEMP 97
== END 2017-09-24 20:00 | disposition home or self-care (01) ==
LOC: EC 17:58
DX: T83.9XXA Unspecified complication of genitourinary prosthetic device, implant and graft, initial encounter (principal); R33.9 Retention of urine, unspecified; J44.9 Chronic obstructive pulmonary disease, unspecified; I48.91 Unspecified atrial fibrillation; I50.9 Heart failure, unspecified; I11.0 Hypertensive heart disease with heart failure; E78.5 Hyperlipidemia, unspecified; I25.2 Old myocardial infarction; K21.9 Gastro-esophageal reflux disease without esophagitis; M19.90 Unspecified osteoarthritis, unspecified site; N40.0 Benign prostatic hyperplasia without lower urinary tract symptoms; Z87.891 Personal history of nicotine dependence; Z79.82 Long term (current) use of aspirin; Z79.899 Other long term (current) drug therapy
CPT/HCPCS: 51702; 81001; 87077; 87086; 87186; 99283

== ENCOUNTER 2017-10-26 04:18 | Inpatient (IN) | payer MEDICARE ==
[2017-10-26] MEDS ORDERED: IBUPROFEN 600 MG TAB PO STA (04:27)
[2017-10-26] MEDS ORDERED: ACETAMINOPHEN IV (For NPO) 1,000 MG in EMPTY BAG 1 BAG IVPB STA (04:27)
[2017-10-26] MEDS ORDERED: cefTRIAXone IN SWFI 1,000 MG/10 ML SYRINGE IVP STA ×2 (04:27→07:01)
--- NOTE | 2017-10-26 04:30 | ED ---
General Adult HPI - General Stated complaint: hematuria Time Seen by Provider: 10/26/17 04:20 Source: RN notes reviewed - History of Present Illness Initial comments: This is an 87-year-old male who presents emergency Department with an indwelling catheter at which she states is been intermittent for many months. Patient comes in today because he noticed some blood in the catheter. Patient denies any fever chills. Patient denies any cough or sore throat or any upper respiratory symptoms. Patient has some suprapubic discomfort but he states it' s minimal. Patient denies any nausea vomiting diarrhea. Patient denies any chest pain difficulty breathing or shortness of breath. Patient denies any blood thinners. Patient denies any back pain. - Related Data Home Medications Medication Instructions Recorded Confirmed Tamsulosin HCl [Flomax] 0.4 mg PO DAILY 03/01/17 07/15/17 Atorvastatin [Lipitor] 40 mg PO HS@2100 05/10/17 07/15/17 Lisinopril [Zestril] 2.5 mg PO DAILY 05/10/17 07/15/17 Metoprolol Succinate [Toprol XL] 25 mg PO DAILY 05/10/17 07/15/17 Oxybutynin Chloride [Ditropan] 5 mg PO TID 05/10/17 07/15/17 Potassium Gluconate 99 mg PO DAILY@1700 07/02/17 07/15/17 Aspirin 81 mg PO DAILY@1700 07/15/17 07/15/17 Bisacodyl [Dulcolax] 10 mg RECTAL DAILY PRN 07/15/17 07/15/17 Ipratropium-Albuterol Nebulize 3 ml INHALATION RT-TID 07/15/17 07/15/17 [Duoneb 0.5 mg-3 mg/3 ml Soln] Lactose-Reduced Food [Ensure Plus] 1 can PO TID 07/15/17 07/15/17 Magnesium Hydroxide [Milk of 2,400 mg PO DAILY PRN 07/15/17 07/15/17 Magnesia] Na Phos,M-B/Na Phos,Di-Ba [Fleet 133 ml RECTAL DAILY PRN 07/15/17 07/15/17 Adult] Previous Rx's Medication Instructions Recorded Acetaminophen Tab [Tylenol] 650 mg PO Q4HR PRN tab 07/08/17 Apixaban [Eliquis] 2.5 mg PO BID tablet 07/08/17 Budesonide [Pulmicort] 1 mg INHALATION RT-BID nebu 07/08/17 Cefuroxime Axetil [Ceftin] 500 mg PO BID #22 tab 07/08/17 Formoterol Fumarate [Perforomist] 20 mcg INHALATION RT-BID #60 nebu 07/08/17 Furosemide [Lasix] 40 mg PO DAILY tab 07/08/17 Sennosides/Docusate Sodium [Keny[place] 1 tab PO DAILY #1 tab 07/08/17 Colace] Allergies Allergy/AdvReac Type Severity Reaction Status Date / Time No Known Allergies Allergy Verified 10/26/17 04:30 Review of Systems ROS Statement: Those systems with pertinent positive or pertinent negative responses have been documented in the HPI. ROS Other: All systems not noted in ROS Statement are negative. Past Medical History Past Medical History: Atrial Fibrillation, Heart Failure, COPD, Dementia, GERD/ Reflux, Hyperlipidemia, Hypertension, Memory Impairment, Myocardial Infarction ( [place]), Osteoarthritis (OA), Prostate Disorder Additional Past Medical History / Comment(s): Pt recently admitted 07/05/17 with UTI/sepsis. Other hx: Afib with RVR, mitral regurg, tricuspid regurt, moderate pulmonary edema, O2 2L/NC ATC, memory problems, BPH with chronic indwelling cath, hematuria, DJD. Last Myocardial Infarction Date:: 1973 History of Any Multi-Drug Resistant Organisms: None Reported Past Surgical History: Heart Catheterization, Orthopedic Surgery Additional Past Surgical History / Comment(s): right knee ligament repair, bilateral cataracts removed with lens implants. Past Anesthesia/Blood Transfusion Reactions: No Reported Reaction Past Psychological History: No Psychological Hx Reported Smoking Status: Former smoker Past Alcohol Use History: None Reported Past Drug Use History: None Reported - Past Family History Father Additional Family Medical History / Comment(s): heart problems not sure what at age 73 Mother Family Medical History: Diabetes Mellitus Additional Family Medical History / Comment(s): at age 69 from complications from diabetes General Exam - General Exam Comments Initial Comments: GENERAL: Patient is well-developed and well-nourished. Patient is nontoxic and well- hydrated and is in mild distress. ENT: Neck is soft and supple. No significant lymphadenopathy is noted. Neck has full range of motion without eliciting any pain. EYES: The sclera were anicteric and conjunctiva were pink and moist. Extraocular movements were intact and pupils were equal round and reactive to light. Eyelids were unremarkable. PULMONARY: Unlabored respirations. Good breath sounds bilaterally. No audible rales rhonchi or wheezing was noted. CARDIOVASCULAR: There is a regular rate and rhythm without any murmurs gallops or rubs. ABDOMEN: Soft and nontender with normal bowel sounds. No palpable organomegaly was noted. There is no palpable pulsatile mass. SKIN: Skin is clear with no lesions or rashes and otherwise unremarkable. NEUROLOGIC: Patient is alert and oriented x3. Cranial nerves II through XII are grossly intact. Motor and sensory are also intact. Normal speech, volume and content. Symmetrical smile. MUSCULOSKELETAL: Normal extremities with adequate strength and full range of motion. LYMPHATICS: No significant lymphadenopathy is noted PSYCHIATRIC: Normal psychiatric evaluation. Course Vital Signs 10/26/17 10/26/17 10/26/17 04:24 06:00 06:58 Temperature 102.7 F H 100.5 F H 99.6 F Pulse Rate 102 H 93 95 Respiratory 20 16 16 Rate Blood Pressure 92/48 91/57 91/54 O2 Sat by Pulse 93 L 95 95 Oximetry Medical Decision Making - Medical Decision Making EKG shows atrial fibrillation at a rate of 97 bpm with occasional PVC. Patient' s QRS is 134 QT interval 350 QTC is 454. Patient's EKG shows no ST segment elevation or depression. Patient's urine was infected so started the patient on Rocephin. Patient's blood pressure was in the 90 systolic so I ordered some fluid. I spoke with Dr. Funez he agreed to admit the patient I admitted the patient - Lab Data Result diagrams: 10/26/17 04:57 10/26/17 04:57 Lab Results 10/26/17 10/26/17 10/26/17 Range/Units 04:57 04:57 04:57 WBC 12.2 H (3.8-10.6) k/uL RBC 3.74 L (4.30-5.90) m/uL Hgb 11.3 L (13.0-17.5) gm/dL Hct 35.8 L (39.0-53.0) % MCV 95.7 (80.0-100.0) fL MCH 30.3 (25.0-35.0) pg MCHC 31.7 (31.0-37.0) g/dL RDW 13.6 (11.5-15.5) % Plt Count 182 (150-450) k/uL Neutrophils % 87 % Lymphocytes % 4 % Monocytes % 8 % Eosinophils % 1 % Basophils % 0 % Neutrophils # 10.5 H (1.3-7.7) k/uL Lymphocytes # 0.5 L (1.0-4.8) k/uL Monocytes # 0.9 (0-1.0) k/uL Eosinophils # 0.1 (0-0.7) k/uL Basophils # 0.0 (0-0.2) k/uL PT (9.0-12.0) sec INR (<1.2) APTT (22.0-30.0) sec Sodium 132 L (137-145) mmol/L Potassium 5.2 H (3.5-5.1) mmol/L Chloride 93 L (98-107) mmol/L Carbon Dioxide 30 (22-30) mmol/L Anion Gap 9 mmol/L BUN 40 H (9-20) mg/dL Creatinine 1.70 H (0.66-1.25) mg/dL Est GFR (MDRD) Af Amer 46 (>60 ml/min/1.73 sqM) Est GFR (MDRD) Non-Af 38 (>60 ml/min/1.73 sqM) Glucose 138 H (74-99) mg/dL Plasma Lactic Acid Luther (0.7-2.0) mmol/L Calcium 8.8 (8.4-10.2) mg/dL Total Bilirubin 0.9 (0.2-1.3) mg/dL AST 30 (17-59) U/L ALT 26 (21-72) U/L Alkaline Phosphatase 75 (38-126) U/L Total Protein 7.2 (6.3-8.2) g/dL Albumin 3.7 (3.5-5.0) g/dL Urine Color Urine Appearance (Clear) Urine pH Urine Protein Urine Glucose (UA) Urine Ketones Urine Blood (Negative) Urine Nitrite Urine Bilirubin Urine Urobilinogen Ur Leukocyte Esterase Urine RBC (0-5) /hpf Urine WBC (0-5) /hpf Urine Bacteria (None) /hpf Hyaline Casts (0-2) /lpf Influenza Type A RNA Not Detected (Not Detectd) Influenza Type B (PCR) Not Detected (Not Detectd) 10/26/17 10/26/17 10/26/17 Range/Units 04:57 04:57 05:52 WBC (3.8-10.6) k/uL RBC (4.30-5.90) m/uL Hgb (13.0-17.5) gm/dL Hct (39.0-53.0) % MCV (80.0-100.0) fL MCH (25.0-35.0) pg MCHC (31.0-37.0) g/dL RDW (11.5-15.5) % Plt Count (150-450) k/uL Neutrophils % % Lymphocytes % % Monocytes % % Eosinophils % % Basophils % % Neutrophils # (1.3-7.7) k/uL Lymphocytes # (1.0-4.8) k/uL Monocytes # (0-1.0) k/uL Eosinophils # (0-0.7) k/uL Basophils # (0-0.2) k/uL PT 10.7 (9.0-12.0) sec INR 1.1 (<1.2) APTT 23.8 (22.0-30.0) sec Sodium (137-145) mmol/L Potassium (3.5-5.1) mmol/L Chloride (98-107) mmol/L Carbon Dioxide (22-30) mmol/L Anion Gap mmol/L BUN (9-20) mg/dL Creatinine (0.66-1.25) mg/dL Est GFR (MDRD) Af Amer (>60 ml/min/1.73 sqM) Est GFR (MDRD) Non-Af (>60 ml/min/1.73 sqM) Glucose (74-99) mg/dL Plasma Lactic Acid Luther 1.2 (0.7-2.0) mmol/L Calcium (8.4-10.2) mg/dL Total Bilirubin (0.2-1.3) mg/dL AST (17-59) U/L ALT (21-72) U/L Alkaline Phosphatase (38-126) U/L Total Protein (6.3-8.2) g/dL Albumin (3.5-5.0) g/dL Urine Color Dark Red Urine Appearance Turbid (Clear) Urine pH METAL TILE LATHER Urine Protein METAL TILE LATHER Urine Glucose (UA) METAL TILE LATHER Urine Ketones METAL TILE LATHER Urine Blood Large H (Negative) Urine Nitrite METAL TILE LATHER Urine Bilirubin METAL TILE LATHER Urine Urobilinogen METAL TILE LATHER Ur Leukocyte Esterase METAL TILE LATHER Urine RBC >182 H (0-5) /hpf Urine WBC >182 H (0-5) /hpf Urine Bacteria Many H (None) /hpf Hyaline Casts 228 H (0-2) /lpf Influenza Type A RNA (Not Detectd) Influenza Type B (PCR) (Not Detectd) Disposition Clinical Impression: Urinary tract infection, Sepsis Disposition: ADMITTED IP TO THIS HOSP Referrals: None,Stated [Primary Care Provider] - 1-2 days Time of Disposition: 07:03
[2017-10-26] MEDS: SODIUM CHLORIDE 0.9% 500 ML IV SCH ×2 (05:13→06:24)
[2017-10-26 05:48] LABS: INR 1.1 (<1.2); Partial Thromboplastin Time 23.8 sec (22.0-30.0); Prothrombin Time 10.7 sec (9.0-12.0)
[2017-10-26 05:50] LABS: Albumin 3.7 g/dL (3.5-5.0); Calcium 8.8 mg/dL (8.4-10.2); Potassium 5.2 mmol/L (3.5-5.1); Total Bilirubin 0.9 mg/dL (0.2-1.3); Total Protein 7.2 g/dL (6.3-8.2)
[2017-10-26 06:06] LABS: Basophils % (A) 0 %; Eosinophils # (A) 0.1 k/uL (0-0.7); Eosinophils % (A) 1 %; HCT 35.8 % (39.0-53.0); HGB 11.3 gm/dL (13.0-17.5); Lymphocytes # (A) 0.5 k/uL (1.0-4.8); Lymphocytes % (A) 4 %; MCH 30.3 pg (25.0-35.0); MCHC 31.7 g/dL (31.0-37.0); MCV 95.7 fL (80.0-100.0); Mean Platelet Volume 7.8; Monocytes # (A) 0.9 k/uL (0-1.0); Monocytes % (A) 8 %; Neutrophils # (A) 10.5 k/uL (1.3-7.7); Neutrophils % (A) 87 %; Platelet Count 182 k/uL (150-450); RBC 3.74 m/uL (4.30-5.90); RDW 13.6 % (11.5-15.5); WBC 12.2 k/uL (3.8-10.6)
[2017-10-26 06:52] LABS: Appearance,Urine Turbid (Clear); Bacteria,Urine Many /hpf; Blood,Urine Large (Negative); Hyaline Casts,Urine 228 /lpf (0-2); RBC,Urine >182 /hpf (0-5); WBC,Urine >182 /hpf (0-5)
[2017-10-26 07:04] LABS: Color,Urine Dark Red
[2017-10-26] MEDS ORDERED: SODIUM CHLORIDE 0.9% 1,000 ML IV ONE (07:04)
[2017-10-26] MEDS ORDERED: cefTRIAXone IN SWFI 1,000 MG/10 ML SYRINGE IVP ONE (07:30)
--- NOTE | 2017-10-26 13:58 | HP ---
HISTORY AND PHYSICAL CHIEF COMPLAINT: Fever, sepsis and urinary tract infection. HISTORY OF PRESENT ILLNESS: This is the first known admission for this 87-year-old Afro-Nauruan male. It is difficult to get a history. He is brought to the emergency room with a history of obstructive uropathy with an indwelling Corado. Apparently, the Corado was placed for urinary retention. In the emergency room, he was hypotensive, febrile and dehydrated. His white count was 12,200. REVIEW OF SYSTEMS: He has had no headaches, confusion. No chest pain, shortness of breath, heart disease, chest pain, abdominal pain, nausea, vomiting, hematemesis, melena, hematochezia, jaundice, cirrhosis, renal failure, or urologic problems other than that already mentioned, arthritis, diabetes, etc. Past medical history, family history, personal and social histories: Unremarkable. PHYSICAL EXAM: Blood pressure is 91/57 with a pulse of 95 with a temperature of 100.5 and he was in atrial fibrillation with PACs. Head, ears, eyes, nose, mouth, and throat were normal and there are no neck masses. The chest is clear. Cardiac exam demonstrated atrial fibrillation and the abdomen is soft and nontender. EXTREMITIES: Normal and a Corado catheter was in place and there was hematuria. Admitted to the hospital with diagnoses. 1. Bacterial septicemia. 2. Urinary tract infection. 3. Obstructive uropathy. 4. Dehydration. 5. Hypotension. 6. Renal failure with BUN of 40 and creatinine of 1.7. PLAN: 1. Bed rest. 2. IV fluids. 3. Appropriate cultures of blood and urine. 4. IV antibiotics. MMODL / IJN: [id number] /
[2017-10-26] MEDS: POTASSIUM CHLORIDE ORAL LIQUID 40 MEQ/30 ML CUP PO SCH (14:15)
[2017-10-26] MEDS: ASPIRIN 81 MG PO SCH (14:16)
[2017-10-26] MEDS: DOCUSATE 100 MG CAP PO PRN (14:16)
[2017-10-27] MEDS: cefTRIAXone IN SWFI 1,000 MG/10 ML SYRINGE IVP SCH (07:23)
[2017-10-27] MEDS: ACETAMINOPHEN TAB 325 MG TAB PO PRN (07:30)
[2017-10-27] MEDS: FUROSEMIDE 40 MG TAB PO SCH (07:30)
[2017-10-27] MEDS: METOPROLOL SUCCINATE (ER) 25 MG TAB.ER.24H PO SCH (07:30)
[2017-10-27] MEDS: LISINOPRIL 2.5 MG TAB PO SCH (07:30)
[2017-10-27] MEDS ORDERED: HALOPERIDOL LACTATE 5 MG/ML 1 ML VIAL IM PRN (15:54)
[2017-10-27] MEDS ORDERED: DIAZEPAM 2 MG TAB PO PRN (16:14)
--- NOTE | 2017-10-27 16:35 | PN ---
PROGRESS NOTE CHIEF COMPLAINT: Urinary tract infection. HISTORY OF PRESENT ILLNESS: This gentleman states he is feeling fairly well. He is still running a temperature. He also had a positive blood culture, but this is likely covered in gram-positive organisms. REVIEW OF SYSTEMS: He has had no headaches, chest pain, shortness of breath, abdominal pain, etc. PHYSICAL EXAM: HEENT is normal. Chest is clear. Cardiac exam is normal. Abdomen is soft, nontender and he has clumps of blood in the catheter, but generally the urine is clearing. Kidney function reveals BUN is 40, and creatinine is 1.7. IMPRESSION: 1. Urinary tract infection. 2. Septicemia. 3. Renal failure. PLAN: Continue with IV fluids and antibiotics and follow up temperature and renal function. MMODL / IJN: [id number] /
[2017-10-27] MEDS: POTASSIUM CHLORIDE ORAL LIQUID 40 MEQ/30 ML CUP PO SCH (16:55)
[2017-10-27] MEDS: ASPIRIN 81 MG PO SCH (16:55)
[2017-10-27] MEDS ORDERED: DIAZEPAM 2 MG TAB PO SCH (18:00)
[2017-10-28] MEDS: cefTRIAXone IN SWFI 1,000 MG/10 ML SYRINGE IVP SCH (06:26)
[2017-10-28] MEDS: METOPROLOL SUCCINATE (ER) 25 MG TAB.ER.24H PO SCH (08:13)
[2017-10-28] MEDS: FUROSEMIDE 40 MG TAB PO SCH (08:13)
[2017-10-28] MEDS: LISINOPRIL 2.5 MG TAB PO SCH (08:13)
[2017-10-28] MEDS: ACETAMINOPHEN TAB 325 MG TAB PO PRN (08:29)
[2017-10-28] MEDS: DOCUSATE 100 MG CAP PO PRN (09:12)
--- NOTE | 2017-10-28 15:19 | CDI ---
Last Revision, August 2017 Documentation Clarification Form Date: 10/28/2017 3:10:00 PM From: Shira MorganMarcumHERON, CCDS Admit Date: 10/26/2017 7:04:00 AM Patient Name: Javier Reyes Visit Number: [id number] Discharge Date: ATTENTION: The Clinical Documentation Specialists (CDI) and [facility] Coding Staff appreciate your assistance in clarifying documentation. Please respond to the clarification below the line at the bottom and electronically sign. The CDI & [facility] Coding staff will review the response and follow-up if needed. Please note: Queries are made part of the Legal Health Record. If you have any questions, please contact the author of this message via ITS. Dr. Jason Funez: 87 yo Afro-[place]atorial [place] male with indwelling Corado cath for urinary retention & obstructive uropathy presented to the ED with hematuria. Per the H/P, the patient has renal failure (nos). History/Risk Factors: Atrial Fib on anticoagulants, CHF, COPD, Hypertension, [place] & previous admission for UTI with Sepsis Clinical Indicators: Home Rx: K Gluc, Toprol, Zestril, Lasix, Lipitor, Aspirin low dose Patients BUN 40, Cr 1.70, GFR 46. Treatment: IV Tylenol, IV rocephin, IV fluids. In order to capture the severity of condition, please clarify if the condition signifies: Acute renal failure, Please specify etiology (if known): o Cortical Necrosis o Medullary Necrosis o Tubular Necrosis Acute on chronic renal failure Chronic renal failure/Chronic Kidney disease (CKD) please stage if known CKD Stage 1 GFR >90 CKD Stage 2 GFR 60-89 CKD Stage 3 GFR 30-59 CKD Stage 4 GFR 15-29 CKD Stage 5 GFR <15 ESRD Other, please specify Unable to determine Please continue to document in your progress notes and discharge summary in order to capture severity of illness and risk of mortality. Include clinical findings that support your diagnosis. MTDD
--- NOTE | 2017-10-28 15:25 | P.CN ---
Psychiatric Consult - . Consult date: 10/28/17 Consult:: 10/28/17 15:16 Identification: Patient is an 87-year-old male who came in with obstructive uropathy with an indwelling Corado catheter he was also febrile and hypotensive at the time. Reason for Consult: Consultation was requested for confusion, outbursts of anger History of Present Illness: Patient was admitted to the hospital and states that he lives at [facility], patient is a poor historian. Patient states that he was a little confused and angry when he came into the hospital but he states that he is settled down. Patient stated that he is feeling well and is no longer feeling feverish. Patient reported that he was doing well and was comfortable. Further historical information was not obtained as the patient is in his room alone no family members are present. Past Psychiatric History: Patient denies any past psychiatric history. Past Medical/Surgical History: Heart failure, COPD, dementia, myocardial infarction Family History: Unable to obtain Social History: patient states he was born and raised in [place], his parents are both and he has one surviving sister, a brother and 2 sisters are . Patient was he states he is not sure for how long and has one daughter and one son. He states he has 1 grandchild granddaughter who is 4 years of age. Patient states his 4 months ago. Patient states that he worked at [employer] for 43 years. Substance Use History: Patient denies any alcohol or drug use in the past or currently and states he is not currently using tobacco products Legal History: None Mental status: Appearance/Attitude: Patient is lying in a hospital bed in no acute distress and made good eye contact and was cooperative. Patient reported he was having difficulty hearing and so I needed to stand close to the patient' s of that he could hear my questions. Behavior: Patient did not display any psychomotor agitation or retardation. Speech/Language: Patient's speech was spontaneous in response to my questions. Patient spoke in a normal volume and rhythm and he was coherent. Thought Process: Patient was goal-directed in his responses, however he had difficulty giving me some his store goal information regarding how he had been doing, how long he had been . Thought Content: Patient denied any auditory or visual hallucinations no paranoid or delusional ideation was elicited. Patient states he was feeling better and states he was feeling confused and angry for. Patient states he is eating well. Suicidal/Homicidal Ideation: Patient denied any suicidal or homicidal ideation at this time. Sensorium/Cognition: Patient is alert and oriented to person, situation, city but was unable to tell me the year, or the season. Further cognitive testing was not performed Mood/Affect: Patient's mood was pleasant and his affect was appropriate Assessment: Patient was assessed, no family was present for collaborative history, patient was admitted for obstructive uropathy with an indwelling catheter. Patient was febrile and hypotensive in the emergency room was found to have a urinary tract infection, sepsis and renal failure. Patient on admission had a low sodium, an elevated white count, elevated BUN and creatinine. Patient currently is cooperating with nursing staff, who reports that he is eating well and has not been a behavioral problem. Patient reported to me that he is feeling better and has "settled down". Patient appears to become delirious secondary to sepsis, presenting with fever and hypotension. Patient's sodium was also low on admission. Diagnosis: Delirium secondary to medical problems Plan: Patient is no longer delirious, he is cooperating with staff. We will discontinue the Valium, which I think would add to his confusion as well as will discontinue the Haldol as the patient has been cooperative and is no longer confused or having angry outbursts. I will sign off the case there are any further questions or concerns please and had stated to contact me.
--- NOTE | 2017-10-28 15:35 | CDI ---
Last Revision, August 2017 Documentation Clarification Form Date: 10/28/2017 3:24:00 PM From: Shira MarcumHERON, CCDS Admit Date: 10/26/2017 7:04:00 AM Patient Name: Javier Reyes Visit Number: [id number] Discharge Date: ATTENTION: The Clinical Documentation Specialists (CDI) and [facility] Coding Staff appreciate your assistance in clarifying documentation. Please respond to the clarification below the line at the bottom and electronically sign. The CDI & [facility] Coding staff will review the response and follow-up if needed. Please note: Queries are made part of the Legal Health Record. If you have any questions, please contact the author of this message via ITS. Dr. Jason Funez: 87 yo Afro-Guyanese male with indwelling Corado catheter for urinary retention & obstructive uropathy presented to the ED with hematuria. History/Risk Factors: Atrial Fib on anticoagulants, CHF, COPD, Hypertension, ME & previous admission for UTI with Sepsis Clinical Indicators: LAB: Hgb 11.3*. UA: Dark red, turbid, large blood, RBC >182, WBC >182. Urine Cx: Citrobacter freundii. Home Rx: K Gluc, Toprol, Zestril, Lasix, Lipitor, Aspirin low dose Treatment: IV Tylenol, IV Rocephin, IV fluids. In your professional opinion, can you please clarify the etiology of the UTI, if known? Corado catheter Suprapubic catheter UTI not related to catheter Other condition, please specify Unable to determine If an infective organism is present, please specify cause and effect relationship if applicable. Please continue to document in your progress notes and discharge summary in order to capture severity of illness and risk of mortality. Include clinical findings that support your diagnosis. MTDD
--- NOTE | 2017-10-28 16:09 | PN ---
PROGRESS NOTE CHIEF COMPLAINT: Urinary tract infection and a agitation and confusion. HISTORY OF PRESENT ILLNESS: This gentleman seems to settle down. He was extremely agitated yesterday. He is still running a temperature of 100.4 but has no complaints. PHYSICAL EXAM: He is awake and alert. Seems oriented now. Chest is clear. Cardiac exam is normal. The abdomen is soft, nontender. IMPRESSION: 1. Urinary tract infection with sepsis. 2. ? Dementia ? Delirium. PLAN: Continue with IV fluids and antibiotics and follow temperature. MMODL / IJN: [id number] /
[2017-10-28] MEDS: POTASSIUM CHLORIDE ORAL LIQUID 40 MEQ/30 ML CUP PO SCH ×2 (16:28→16:29)
[2017-10-28] MEDS: ASPIRIN 81 MG PO SCH (16:28)
[2017-10-29] MEDS: cefTRIAXone IN SWFI 1,000 MG/10 ML SYRINGE IVP SCH (05:17)
[2017-10-29] MEDS: METOPROLOL SUCCINATE (ER) 25 MG TAB.ER.24H PO SCH (07:20)
[2017-10-29] MEDS: LISINOPRIL 2.5 MG TAB PO SCH (07:20)
[2017-10-29] MEDS: FUROSEMIDE 40 MG TAB PO SCH (07:20)
--- NOTE | 2017-10-29 09:16 | CDI ---
Last Revision, August 2017 Documentation Clarification Form Date: 10/29/2017 9:09:00 AM From: Shira MarcumHERON, CCDS Admit Date: 10/26/2017 7:04:00 AM Patient Name: Javier Reyes Visit Number: [id number] Discharge Date: ATTENTION: The Clinical Documentation Specialists (CDI) and [facility] Coding Staff appreciate your assistance in clarifying documentation. Please respond to the clarification below the line at the bottom and electronically sign. The CDI & [facility] Coding staff will review the response and follow-up if needed. Please note: Queries are made part of the Legal Health Record. If you have any questions, please contact the author of this message via ITS. Dr. Jason Funez: Per the H/P: "He is brought to the emergency room with a history of obstructive uropathy with an indwelling Corado. Apparently, the Corado was placed for urinary retention. In the emergency room, he was hypotensive, febrile and dehydrated. Per the Psych consult on 10/28: "Patient appears to become delirious secondary to sepsis, presenting with fever and hypotension." History/Risk factors: Atrial Fibrillation, CHF, COPD, Dementia, Hypertension, ME. Previous admit 06/29 with UTI & Sepsis. Clinical Indicators: T 102.7^, P 102^, R 20, BP 92/48, PO 93 RA Labs: WBC 12.2, Neutrophils 10.5. UA: Dk red, turbid, Lg blood, RBC >182, WBC > 182. Treatment: Psychiatric consult for agitation & delirium. In your professional opinion, can you please clarify the specific type of encephalopathy, if known? Metabolic Encephalopathy Septic Encephalopathy Toxic Encephalopathy Other, please specify Unable to determine Please continue to document in your progress notes and discharge summary in order to capture severity of illness and risk of mortality. Include clinical findings that support your diagnosis. MTDD
[2017-10-29] MEDS: ACETAMINOPHEN TAB 325 MG TAB PO PRN ×2 (14:45→20:53)
--- NOTE | 2017-10-29 15:28 | XR ---
EXAMINATION TYPE: XR chest 2V DATE OF EXAM: 10/29/2017 COMPARISON: Prior chest x-ray 07/15/2017 HISTORY: Cough and shortness of breath TECHNIQUE: Frontal and lateral views of the chest are obtained. FINDINGS: Increased AP diameter of the chest suggests underlying COPD. Increased density present on the lateral exam the level of the posterior costophrenic angle. Thoracic spondylosis is stable. Coron jyoti artery calcifications are present. The heart remains enlarged, the aorta is dense. Central vascul arity is prominent. No evident pneumothorax, or pleural effusion. IMPRESSION: Difficult to exclude airspace disease in the posterior costophrenic angle. Correlate for pneumonia. Cardiomegaly. Correlate for possible pulmonary artery hypertension. Coronary artery disea se. Follow-up as indicated.
[2017-10-29] MEDS: POTASSIUM CHLORIDE ORAL LIQUID 40 MEQ/30 ML CUP PO SCH (16:17)
[2017-10-29] MEDS: ASPIRIN 81 MG PO SCH (16:19)
--- NOTE | 2017-10-29 16:31 | PN ---
PROGRESS NOTE DATE OF SERVICE: 10/29/2017 CHIEF COMPLAINT: Septicemia. HISTORY OF PRESENT ILLNESS: This gentleman is improving. There apparently is a leak around the Corado catheter. This was replaced at the time of admission. At the present time he is not complaining of any abdominal pain, fever, chills, etc. PHYSICAL EXAMINATION: His chest is clear. The cardiac exam is normal. Abdomen is soft and nontender. Extremities are normal. IMPRESSION: Genitourinary septicemia. PLAN: Progress activity. Discharge plan will be difficult with this gentleman. MMODL / IJN: [id number] /
[2017-10-29] MEDS: traZODone HCL 50 MG TAB PO SCH (23:34)
[2017-10-30] MEDS: cefTRIAXone IN SWFI 1,000 MG/10 ML SYRINGE IVP SCH (05:40)
[2017-10-30] MEDS: LISINOPRIL 2.5 MG TAB PO SCH (10:13)
[2017-10-30] MEDS: FUROSEMIDE 40 MG TAB PO SCH (10:13)
[2017-10-30] MEDS: METOPROLOL SUCCINATE (ER) 25 MG TAB.ER.24H PO SCH (10:14)
[2017-10-30] MEDS: ACETAMINOPHEN TAB 325 MG TAB PO PRN (10:15)
[2017-10-30 12:10] LABS: Anion Gap 9 mmol/L; Blood Urea Nitrogen 21 mg/dL (9-20); Calcium 8.7 mg/dL (8.4-10.2); Carbon Dioxide 30 mmol/L (22-30); Chloride 103 mmol/L (98-107); Glucose 146 mg/dL (74-99); Potassium 4.3 mmol/L (3.5-5.1); Sodium 142 mmol/L (137-145)
[2017-10-30 12:18] LABS: Basophils % (A) 0 %; Eosinophils # (A) 0.2 k/uL (0-0.7); Eosinophils % (A) 2 %; HCT 28.7 % (39.0-53.0); Hypochromasia Slight; Lymphocytes # (A) 0.5 k/uL (1.0-4.8); Lymphocytes % (A) 7 %; MCH 30.3 pg (25.0-35.0); MCHC 30.9 g/dL (31.0-37.0); Mean Platelet Volume 9.1; Monocytes # (A) 0.6 k/uL (0-1.0); Monocytes % (A) 8 %; Neutrophils # (A) 6.1 k/uL (1.3-7.7); Neutrophils % (A) 80 %; Platelet Count 136 k/uL (150-450); RBC 2.93 m/uL (4.30-5.90); RDW 13.8 % (11.5-15.5); WBC 7.6 k/uL (3.8-10.6)
[2017-10-30 12:22] LABS: HGB 8.9 gm/dL (13.0-17.5)
--- NOTE | 2017-10-30 14:35 | DS ---
DISCHARGE SUMMARY CHIEF COMPLAINT: Urinary tract infection and sepsis. HISTORY OF PRESENT ILLNESS AND PHYSICAL EXAM: Details of this man's history and physical can be found in the initial workup. LABORATORY STUDIES: While he was in a hospital, he had laboratory studies details of which can be found in the laboratory section of his chart. COURSE IN HOSPITAL: After admission he was placed on bedrest, started on intravenous fluids and IV antibiotics. He remained very confused and agitated on and off for the next 4 or 5 days before he began stabilized. Temperature came down. His activity was increased and it was felt that he could go home on the . He will go home on Keflex 500 mg q.i.d. in addition to his usual medications. We will see him in the office in a few days. FINAL DIAGNOSES: 1. Urinary tract infection. 2. Septicemia. 3. Delirium. OPERATIONS: None. CONSULTATIONS: None. He is improved. MMMARILYNL / WELLINGTON: [id number] /
[2017-10-30] MEDS: POTASSIUM CHLORIDE ORAL LIQUID 40 MEQ/30 ML CUP PO SCH (17:01)
[2017-10-30] MEDS: ASPIRIN 81 MG PO SCH (17:01)
[2017-10-30] MEDS: traZODone HCL 50 MG TAB PO SCH (21:13)
[2017-10-31] MEDS: cefTRIAXone IN SWFI 1,000 MG/10 ML SYRINGE IVP SCH (05:19)
[2017-10-31 05:55] VITALS: RESP 16
[2017-10-31] MEDS: METOPROLOL SUCCINATE (ER) 25 MG TAB.ER.24H PO SCH (09:54)
[2017-10-31] MEDS: LISINOPRIL 2.5 MG TAB PO SCH (09:54)
[2017-10-31] MEDS: ACETAMINOPHEN TAB 325 MG TAB PO PRN (09:54)
[2017-10-31] MEDS: FUROSEMIDE 40 MG TAB PO SCH (09:54)
[2017-10-31] MEDS: ASPIRIN 81 MG PO SCH (16:42)
[2017-10-31] MEDS: POTASSIUM CHLORIDE ORAL LIQUID 40 MEQ/30 ML CUP PO SCH (17:19)
[2017-10-31] MEDS ORDERED: POTASSIUM BICARBONATE/CIT AC 20 MEQ TABLET.EFF PO SCH (18:00)
[2017-10-31] MEDS: traZODone HCL 50 MG TAB PO SCH (21:19)
[2017-11-01] MEDS: cefTRIAXone IN SWFI 1,000 MG/10 ML SYRINGE IVP SCH (06:32)
[2017-11-01 06:33] VITALS: BP 143/85; PULSE 97; TEMP 97
[2017-11-01] MEDS: METOPROLOL SUCCINATE (ER) 25 MG TAB.ER.24H PO SCH (10:03)
[2017-11-01] MEDS: LISINOPRIL 2.5 MG TAB PO SCH (10:03)
[2017-11-01] MEDS: FUROSEMIDE 40 MG TAB PO SCH (10:03)
--- NOTE | 2017-11-01 14:35 | PN ---
PROGRESS NOTE CHIEF COMPLAINT: Urinary tract infection. HISTORY OF PRESENT ILLNESS: This gentleman was to have been discharged at the end of the week but now the family wants him to go to a correction. He may be going to [facility] on Wednesday. PHYSICAL EXAM: There has been no change. IMPRESSION: Urinary tract infection with sepsis. PLAN: Await a bed at correction. MMODL / IJN: [id number] /
--- NOTE | 2017-11-01 15:04 | DS ---
DISCHARGE SUMMARY ADDENDUM: He was prepared for discharge at the end of last week, but his family wanted him in a intermediate. He was kept over the weekend and [facility]. There has been no interval change in his discharge plan, medications, etc. DEMETRI / WELLINGTON: [id number] /
--- NOTE | 2017-11-02 22:12 | MISC ---
MISCELLANOUS REPORT QUERY: Etiology of urinary tract infection is Corado catheter. MMODL / IJN: [id number] /
--- NOTE | 2017-11-02 22:12 | MISC ---
MISCELLANOUS REPORT QUERY: In your opinion, can you please clarify the specific type of encephalopathy: Unable to determine. MMODL / IJN: [id number] /
--- NOTE | 2017-11-02 22:12 | MISC ---
MISCELLANOUS REPORT QUERY: Asking about acute renal failure: The answer is I am unable to determine. MMMARILYNL / IJN: [id number] /
== END 2017-11-01 15:27 | DRG 698 ==
LOC: EC 04:18 → 4MS4W 07:04
PROVIDERS: ADMIT Family Medicine; ATTEND Family Medicine
DX: T83.511A Infection and inflammatory reaction due to indwelling urethral catheter, initial encounter (principal); A41.9 Sepsis, unspecified organism; I95.9 Hypotension, unspecified; I48.91 Unspecified atrial fibrillation; I11.0 Hypertensive heart disease with heart failure; I08.1 Rheumatic disorders of both mitral and tricuspid valves; I50.9 Heart failure, unspecified; E86.0 Dehydration; J44.9 Chronic obstructive pulmonary disease, unspecified; F03.90 Unspecified dementia, unspecified severity, without behavioral disturbance, psychotic disturbance, mood disturbance, and anxiety; N13.9 Obstructive and reflux uropathy, unspecified; N19 Unspecified kidney failure; E78.5 Hyperlipidemia, unspecified; I49.3 Ventricular premature depolarization; R45.1 Restlessness and agitation; R41.0 Disorientation, unspecified; N40.0 Benign prostatic hyperplasia without lower urinary tract symptoms; R31.9 Hematuria, unspecified; N39.0 Urinary tract infection, site not specified; K21.9 Gastro-esophageal reflux disease without esophagitis; Z96.1 Presence of intraocular lens; Z79.899 Other long term (current) drug therapy; Z79.82 Long term (current) use of aspirin; Z79.01 Long term (current) use of anticoagulants; I25.2 Old myocardial infarction; Z83.3 Family history of diabetes mellitus; Z98.41 Cataract extraction status, right eye; Z98.42 Cataract extraction status, left eye; Z87.891 Personal history of nicotine dependence
CPT/HCPCS: 36415; 51702; 71046; 80048; 80053; 81001; 83605; 85025; 85610; 85730; 87040; 87077; 87086; 87186; 87502; 93005; 96365; 96375; 96376; 99284

== ENCOUNTER 2018-02-01 06:44 | Observation (INO) | payer MEDICARE ==
[2018-02-01] MEDS ORDERED: SODIUM CHLORIDE 0.9% 1,000 ML IV STA (07:24)
[2018-02-01 07:38] LABS: Basophils % (A) 0 %; Eosinophils # (A) 0.1 k/uL (0-0.7); Eosinophils % (A) 1 %; HCT 34.7 % (39.0-53.0); HGB 11.3 gm/dL (13.0-17.5); Lymphocytes # (A) 0.9 k/uL (1.0-4.8); Lymphocytes % (A) 15 %; MCHC 32.6 g/dL (31.0-37.0); MCV 92.2 fL (80.0-100.0); Mean Platelet Volume 8.8; Monocytes # (A) 0.4 k/uL (0-1.0); Monocytes % (A) 8 %; Neutrophils # (A) 4.2 k/uL (1.3-7.7); Neutrophils % (A) 74 %; Platelet Count 208 k/uL (150-450); RBC 3.76 m/uL (4.30-5.90); RDW 15.5 % (11.5-15.5); WBC 5.6 k/uL (3.8-10.6)
[2018-02-01 07:52] LABS: Partial Thromboplastin Time 23.2 sec (22.0-30.0); Prothrombin Time 10.2 sec (9.0-12.0)
[2018-02-01 07:54] LABS: Calcium 9.2 mg/dL (8.4-10.2); Potassium 4.3 mmol/L (3.5-5.1); Total Bilirubin 0.7 mg/dL (0.2-1.3); Total Protein 7.8 g/dL (6.3-8.2)
--- NOTE | 2018-02-01 08:06 | CT ---
EXAMINATION TYPE: CT brain wo con for TPA DATE OF EXAM: 02/01/2018 COMPARISON: 03/06/2017 INDICATION: AUDREY, Neuro deficits DLP: 1162.80 mGycm, Automated exposure control for dose reduction was used. CONTRAST: None CT of the brain is performed utilizing 3 mm thick sections through the posterior fossa and 3 mm thick sections through the remaining calvarium. Study is performed within 24 hours of arrival to the hosp ital. No abnormal hyperdensity is present to suggest an acute intracranial hemorrhage. No mass lesion is evident. No acute infarcts are evident. Periventricular white matter hypodensity is present, stable from prior examination, likely related to chronic white matter ischemic changes. Ventricles and sulci are prominent for the patient age. Paranasal sinuses and mastoid air cells within the [id number] are clear. IMPRESSIONS: 1. Atrophy with periventricular white matter ischemic changes. 2. No acute intracranial process evident on current CT. MRI may be more sensitive for early acute lindsay nges.
[2018-02-01 08:11] LABS: D-Dimer 2.43 mg/L FEU (<0.60)
[2018-02-01] MEDS ORDERED: RX INFO: IV CONTRAST WAS GIVEN 1 EACH MISC MISCELLANE PRN (08:13)
[2018-02-01 08:16] LABS: Creatine Kinase MB 0.8 ng/mL (0.0-2.4); Troponin I 0.029 ng/mL (0.000-0.034)
--- NOTE | 2018-02-01 08:25 | XR ---
EXAMINATION TYPE: XR chest 2V DATE OF EXAM: 02/01/2018 COMPARISON: 10/29/2017 INDICATION: Altered mental status, facial drooping TECHNIQUE: Frontal and lateral views of the chest are obtained. FINDINGS: The heart size is mildly prominent. The pulmonary vasculature is normal. The lungs are clear. IMPRESSION: 1. Mild cardiomegaly
--- NOTE | 2018-02-01 10:25 | CT ---
EXAMINATION TYPE: CT chest angio for PE DATE OF EXAM: 02/01/2018 COMPARISON: NONE HISTORY: 87-year-old male with pain, difficulty breathing, elevated d-dimer, shortness of breath TECHNIQUE: Contiguous axial scanning of the chest performed with IV Contrast, patient injected with 8 4 mL of Isovue 370. Coronal/sagittal MIP reconstructions performed. CT DLP: 418.4 mGycm Automated exposure control for dose reduction was used. FINDINGS: Heart is borderline enlarged. Extensive coronary vessel calcifications are present in remarkable for coronary artery disease. Aneurysm of the ascending aorta measuring up to 4.2 cm and of the upper descending thoracic aorta at 3.6 cm. Gakw-sb-cacmcqlz of his chronic arch calcifications with conventional arch vessel branching a natomy. Scattered nonenlarged mediastinal lymph nodes. No thoracic lymphadenopathy by CT size criteria. Enlarged caliber to the main right and left pulmonary arteries at 3.2 and 3.0 cm, respectively, vianey tible with underlying pulmonary artery hypertension. There is also reflux of contrast into the IVC an d hepatic veins though no flattening of the interventricular septum. No evidence for pulmonary embolu s. Mild to moderate bronchial wall thickening and scattered mild emphysematous cysts. There is some and endobronchial opacity within the posterior basilar subsegmental right lower lobe branch, axial image 108, probably mucoid plugging. Strandy atelectasis/scarring at the posterior lung bases. Otherwise, no consolidation or pleural effusion. Tiny hiatal hernia. Multiple layering calculi in the gallbladder. Partially visualized 8 mm left renal calculus. Either p arapelvic cyst or mild left-sided hydronephrosis. Bones: Moderate degenerative disc disease throughout the thoracic spine. Some lucent areas at L1 and L2 likely Schmorl's nodes and hemangiomas. IMPRESSION: 1. NO EVIDENCE FOR PULMONARY EMBOLUS. 2. HOWEVER, THERE IS PULMONARY ARTERIAL HYPERTENSION WITH FINDINGS SUGGESTING ELEVATED CARDIAC PRESSU RES. CORRELATE FOR EARLY CARDIAC DECOMPENSATION. 3. COPD WITH MILD EMPHYSEMA. HOWEVER, THERE IS MILD TO MODERATE BRONCHIAL WALL THICKENING THAT COULD REPRESENT A COMPONENT OF CHRONIC BRONCHITIS OR SUPERIMPOSED ACUTE BRONCHITIS. 4. FOCAL ENDOBRONCHIAL PLUGGING INVOLVING A BASILAR RIGHT LOWER LOBE SUBSEGMENTAL BRANCH. POSSIBLE MU COID PLUGGING. RECOMMEND 3-6 MONTH FOLLOW-UP CT TO EXCLUDE A SMALL ENDOBRONCHIAL MASS. 5. TINY HIATAL HERNIA, CHOLELITHIASIS, AND AN 8 MM PARTIALLY VISUALIZED LEFT RENAL CALCULUS. 6. EITHER A PARAPELVIC CYST INVOLVING THE LEFT KIDNEY VERSUS MILD LEFT-SIDED HYDRONEPHROSIS. 7. ANEURYSMAL THORACIC AORTA (ASCENDING 4.2 CM AND DESCENDING 3.6 CM).
[2018-02-01] MEDS ORDERED: ASPIRIN 81 MG PO STA (10:56)
--- NOTE | 2018-02-01 11:03 | ED ---
General Adult HPI - General Chief complaint: Shortness of Breath Stated complaint: AUDREY Time Seen by Provider: 02/01/18 07:06 Source: patient, family Mode of arrival: wheelchair Limitations: no limitations - History of Present Illness Initial comments: 7 years old male comes in with a trouble talking and some facial droop initially told the triage nurse that he had a shortness of breath but then later with the further investigation he stated he has a right-sided facial swelling facial droop and he has a difficulty talking. Denies any headaches no neck stiffness no chest pain he did complain about pain with a deep breaths no abdominal pain no frequency urgency dysuria. Difficulty talking otherwise review of system is unremarkable - Related Data Home Medications Medication Instructions Recorded Confirmed Atorvastatin [Lipitor] 40 mg PO HS 05/10/17 02/01/18 Lisinopril [Zestril] 2.5 mg PO DAILY 05/10/17 02/01/18 Metoprolol Succinate [Toprol XL] 25 mg PO DAILY 05/10/17 02/01/18 Potassium Gluconate 99 mg PO DAILY 07/02/17 02/01/18 Acetaminophen Tab [Tylenol Tab] 500 - 1,000 mg PO Q6H PRN 02/01/18 02/01/18 Albuterol Nebulized [Ventolin 2.5 mg INHALATION RT-TID 02/01/18 02/01/18 Nebulized] Cholecalciferol (Vitamin D3) 2,000 unit PO DAILY 02/01/18 02/01/18 [Vitamin D3] Finasteride [Proscar] 5 mg PO HS 02/01/18 02/01/18 Previous Rx's Medication Instructions Recorded Furosemide [Lasix] 40 mg PO DAILY tab 07/08/17 Allergies Allergy/AdvReac Type Severity Reaction Status Date / Time No Known Allergies Allergy Verified 02/01/18 08:06 Review of Systems ROS Statement: Those systems with pertinent positive or pertinent negative responses have been documented in the HPI. ROS Other: All systems not noted in ROS Statement are negative. Past Medical History Past Medical History: Atrial Fibrillation, Heart Failure, COPD, Dementia, GERD/ Reflux, Hyperlipidemia, Hypertension, Memory Impairment, Myocardial Infarction ( [place]), Osteoarthritis (OA), Prostate Disorder Additional Past Medical History / Comment(s): Past UTIs, uti with sepsis, BPH, chronic indwelling gamino, hematuria, afib with RVR, mitral regurg, tricuspid regurt, moderate pulmonary edema,ischemic cardiomyopathy, memory problems, DJD. Last Myocardial Infarction Date:: 1973 History of Any Multi-Drug Resistant Organisms: None Reported Past Surgical History: Heart Catheterization, Orthopedic Surgery Additional Past Surgical History / Comment(s): right knee ligament repair, bilateral cataracts removed with lens implants. Past Anesthesia/Blood Transfusion Reactions: No Reported Reaction Past Psychological History: No Psychological Hx Reported Smoking Status: Former smoker - Past Family History Father Additional Family Medical History / Comment(s): heart problems not sure what at age 73 Mother Family Medical History: Diabetes Mellitus Additional Family Medical History / Comment(s): at age 69 from complications from diabetes General Exam - General Exam Comments Initial Comments: General: The patient is awake , wrist dysarthria and right-sided facial droop Skin: Skin is warm and dry and no rashes or lesions are noted. Eye: Pupils are equal, round and reactive to light, extra-ocular movements are intact; there is normal conjunctiva bilaterally. Ears, nose, mouth and throat: There are moist mucous membranes and no oral lesions. Neck: The neck is supple, there is no tenderness or JVD. Cardiovascular: There is atrial fibrillation Respiratory: To auscultation bilateral, it is crackles all over the place is decreased breath sounds bilateral Gastrointestinal: Soft, non-distended, non-tender abdomen without masses or organomegaly noted. There is no rebound or guarding present. Bowel sounds are unremarkable. Back: There is no tenderness to palpation in the midline. There is no obvious deformity. Musculoskeletal: Normal ROM, no tenderness, There is no pedal edema. There is no calf tenderness or swelling. No cords were appreciated. Neurological: CN II-XII intact, Cranial nerves III through XII are intact. There are no obvious motor or sensory deficits. Coordination appears grossly intact. Speech is normal. Psychiatric: Cooperative, appropriate mood & affect, normal judgment. Limitations: no limitations Course Vital Signs 02/01/18 02/01/18 02/01/18 06:47 07:18 08:56 Temperature 97.9 F Pulse Rate 81 74 72 Respiratory 20 18 16 Rate Blood Pressure 138/79 122/74 115/67 O2 Sat by Pulse 96 96 99 Oximetry EKG Findings - EKG Comments: EKG Findings:: KG is atrial fibrillation medical rate 72. QRS duration is 144 QRS duration is 144 QT/QTc is 432/473 review of this EKG does not reveal any ST elevation or ST depression Medical Decision Making - Lab Data Result diagrams: 02/01/18 07:13 02/01/18 07:13 Lab Results 02/01/18 02/01/18 02/01/18 Range/Units 07:13 07:13 07:13 WBC (3.8-10.6) k/uL RBC (4.30-5.90) m/uL Hgb (13.0-17.5) gm/dL Hct (39.0-53.0) % MCV (80.0-100.0) fL MCH (25.0-35.0) pg MCHC (31.0-37.0) g/dL RDW (11.5-15.5) % Plt Count (150-450) k/uL Neutrophils % % Lymphocytes % % Monocytes % % Eosinophils % % Basophils % % Neutrophils # (1.3-7.7) k/uL Lymphocytes # (1.0-4.8) k/uL Monocytes # (0-1.0) k/uL Eosinophils # (0-0.7) k/uL Basophils # (0-0.2) k/uL PT 10.2 (9.0-12.0) sec INR 1.0 (<1.2) APTT 23.2 (22.0-30.0) sec D-Dimer 2.43 H (<0.60) mg/L FEU Sodium 141 (137-145) mmol/L Potassium 4.3 (3.5-5.1) mmol/L Chloride 100 (98-107) mmol/L Carbon Dioxide 29 (22-30) mmol/L Anion Gap 12 mmol/L BUN 21 H (9-20) mg/dL Creatinine 1.05 (0.66-1.25) mg/dL Est GFR (CKD-EPI)AfAm 73 (>60 ml/min/1.73 sqM) Est GFR (CKD-EPI)NonAf 63 (>60 ml/min/1.73 sqM) Glucose 126 H (74-99) mg/dL Calcium 9.2 (8.4-10.2) mg/dL Total Bilirubin 0.7 (0.2-1.3) mg/dL AST 28 (17-59) U/L ALT 26 (21-72) U/L Alkaline Phosphatase 82 (38-126) U/L Total Creatine Kinase 57 (55-170) U/L CK-MB (CK-2) 0.8 (0.0-2.4) ng/mL CK-MB (CK-2) Rel Index 1.4 Troponin I 0.029 (0.000-0.034) ng/mL Total Protein 7.8 (6.3-8.2) g/dL Albumin 4.0 (3.5-5.0) g/dL 02/01/18 Range/Units 07:13 WBC 5.6 (3.8-10.6) k/uL RBC 3.76 L (4.30-5.90) m/uL Hgb 11.3 L (13.0-17.5) gm/dL Hct 34.7 L (39.0-53.0) % MCV 92.2 (80.0-100.0) fL MCH 30.0 (25.0-35.0) pg MCHC 32.6 (31.0-37.0) g/dL RDW 15.5 (11.5-15.5) % Plt Count 208 (150-450) k/uL Neutrophils % 74 % Lymphocytes % 15 % Monocytes % 8 % Eosinophils % 1 % Basophils % 0 % Neutrophils # 4.2 (1.3-7.7) k/uL Lymphocytes # 0.9 L (1.0-4.8) k/uL Monocytes # 0.4 (0-1.0) k/uL Eosinophils # 0.1 (0-0.7) k/uL Basophils # 0.0 (0-0.2) k/uL PT (9.0-12.0) sec INR (<1.2) APTT (22.0-30.0) sec D-Dimer (<0.60) mg/L FEU Sodium (137-145) mmol/L Potassium (3.5-5.1) mmol/L Chloride (98-107) mmol/L Carbon Dioxide (22-30) mmol/L Anion Gap mmol/L BUN (9-20) mg/dL Creatinine (0.66-1.25) mg/dL Est GFR (CKD-EPI)AfAm (>60 ml/min/1.73 sqM) Est GFR (CKD-EPI)NonAf (>60 ml/min/1.73 sqM) Glucose (74-99) mg/dL Calcium (8.4-10.2) mg/dL Total Bilirubin (0.2-1.3) mg/dL AST (17-59) U/L ALT (21-72) U/L Alkaline Phosphatase (38-126) U/L Total Creatine Kinase (55-170) U/L CK-MB (CK-2) (0.0-2.4) ng/mL CK-MB (CK-2) Rel Index Troponin I (0.000-0.034) ng/mL Total Protein (6.3-8.2) g/dL Albumin (3.5-5.0) g/dL Critical Care Time Total Critical Care Time: 45 Critical Care Time: Patient was reassessed immediately on arrival to the hospital or the ER CT head was done which was unremarkable CBC is fine d-dimer is elevated pulmonary embolism was ruled out as CT angiogram was followed it did reveal some cardiac stress strain, confirms COPD also there was a question of for mucous plug and also noticed aortic aneurysm ascending and descending aorta. Patient was reassessed 2 hours being in the ER, now his GCS was 20/15 his dysarthria has disappeared, there was no neuro deficits noticed at all noticed some swelling of the right side of the face, no abscess noticed no tenderness noticed over the gums or air inside the cheek. Buccal mucosa. Patient be admitted term with a TIA and now bronchitis with a possible mucous plugs and some heart strain he does have a history of atrial fibrillation will consult pulmonary medicine consult cardiology as well as neurology admitted to Dr. Ventura's service Disposition Clinical Impression: TIA (transient ischemic attack), Pulmonary hypertension, Atrial fibrillation, Elevated d-dimer Disposition: ADMITTED IP TO THIS HOSP Condition: Good Referrals: Jaycob Douglass MD [Primary Care Provider] - 1-2 days
[2018-02-01] MEDS ORDERED: NALOXONE 0.4 MG/ML 1 ML VIAL IV PRN (11:05)
[2018-02-01] MEDS ORDERED: ACETAMINOPHEN TAB 325 MG TAB PO PRN (11:05)
[2018-02-01] MEDS ORDERED: ONDANSETRON 4 MG/2 ML VIAL IVP PRN (11:05)
[2018-02-01] MEDS ORDERED: ACETAMINOPHEN TAB 500 MG TAB PO PRN (11:16)
[2018-02-01] MEDS: ALBUTEROL NEBULIZED 2.5 MG/3 ML INHALATION SCH ×2 (11:34→20:34)
--- NOTE | 2018-02-01 20:02 | HP ---
HISTORY AND PHYSICAL DATE OF ADMISSION: 02/01/2018 DATE OF SERVICE: 02/01/2018 PRESENTING COMPLAINT: Right face swollen. HISTORY OF PRESENTING COMPLAINT: Pleasant 87-year-old patient of Dr. Douglass. Chronic stable medical conditions include Alzheimer's disease, atrial fibrillation, COPD, GERD, hypertension, osteoarthritis, CHF, BPH with chronic Corado, mitral and tricuspid regurgitation. Patient presented initially with a swollen face and some facial asymmetry. Initially it was thought to be a stroke. Workup was done in the ER for the same, including a CT scan of the brain. When I saw the patient, he did complain of swelling of the right side of the face that actually had gone down, and the swelling was somewhat limited to superficial to the right lower jaw in the anterior part externally. The patient had slight discomfort. Patient said the swelling had come down this morning. There was no change in his speech. No focal weakness. No headache. No double vision. The patient at his baseline uses a walker. Patient has a known history of atrial fibrillation. REVIEW OF SYSTEMS: CONSTITUTIONAL: None. HEENT: As above. RESPIRATORY: Occasional cough. CARDIOVASCULAR: None. GASTROINTESTINAL: Heartburn. GENITOURINARY: Has a chronic Corado catheter. DERMATOLOGICAL: None. HEMATOLOGICAL: None. LYMPHATICS: None. PSYCHIATRY: NEUROLOGICAL: None. PAST MEDICAL HISTORY: 1. Alzheimer's. 2. Atrial fibrillation. 3. COPD. 4. GERD. 5. Hypertension. 6. Osteoarthritis. 7. CHF. 8. BPH with chronic Corado. 9. Mitral and tricuspid regurgitation. PAST SURGICAL HISTORY: 1. Cardiac catheterization. 2. Orthopedic surgery. 3. Right knee ligament repair. 4. Bilateral cataracts. SOCIAL HISTORY: Patient lives with his Glenn. Uses a walker. Has nursing 3 times a week. The patient smoked for about 20 years, a pack and a half a day; stopped in 1974. FAMILY HISTORY: Diabetes. HOME MEDICATIONS: 1. Potassium 99 mg p.o. daily. 2. Toprol XL 25 mg p.o. daily. 3. Zestril 2.5 p.o. daily. 4. Lasix 40 mg p.o. daily. 5. Proscar 5 mg p.o. at bedtime. 6. Vitamin D3 2000 units p.o. daily. 7. Lipitor 40 mg at bedtime. 8. Ventolin 2.5 t.i.d. 9. Acetaminophen 500 to 1000 mg q.6 p.r.n. ALLERGIES: NONE. PHYSICAL EXAMINATION: VITAL SIGNS ON PRESENTATION: Temperature 97.9, pulse 81, respiration 20, blood pressure 130/79, pulse ox 96% on room air. GENERAL APPEARANCE: Sitting up. Comfortable. EYES: Pupils equal. Conjunctivae normal. HEENT: External appearance of nose and ears normal. Oral cavity shows swelling on the external part of the right lower jaw; soft tissue swelling with minimal tenderness. Soft. NECK: JVD not raised. Mass not palpable. RESPIRATORY: Effort normal. LUNGS: Slightly decreased breath sounds. CARDIOVASCULAR: Heart sounds irregular. No edema. ABDOMEN: Soft, nontender. Liver and spleen not palpable. LYMPHATIC: No lymph node palpable in neck or axillae. PSYCHIATRY: Patient is able to answer simple questions. Mood and affect normal. NEUROLOGICAL: Pupils equal. Cranial nerves grossly intact. Power and sensation grossly intact. INVESTIGATIONS: White count 5.6, hemoglobin 11.3, potassium 4.3, BUN 21, creatinine 1.05. Troponin 0.029, 0.030. CT scan of the brain showed atrophic changes. Chest CTA showed some emphysematous changes, some aneurysmal thoracic aorta. EKG shows atrial fibrillation with right bundle branch block pattern. ASSESSMENT: 1. Acute sialitis (inflammation of the salivary gland) in the area of the floor of the mouth external to the jaw on the right side; initially mimicking a transient ischemic attack; feeling much better. 2. Persistent atrial fibrillation, rate controlled. 3. Chronic obstructive pulmonary disease. 4. Gastroesophageal reflux disease. 5. Essential hypertension. 6. Primary osteoarthritis. 7. Benign prostatic hypertrophy with a chronic Corado catheter. 8. Chronic congestive heart failure from systolic dysfunction, ejection fraction 20% to 25%. 9. Moderate to severe mitral regurgitation, non-rheumatic. 10.Severe tricuspid regurgitation, non-rheumatic. 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 12.Hypertension. 13.Osteoarthritis. PLAN: Will give a hot compress to the right side of the face to cut down the swelling. Home medications will be resumed. Patient did have a 2D echo in 2017 that showed moderate pulmonary hypertension, moderate to severe mitral regurgitation and ejection fraction is 20% to 25%. Other medication and treatment plan is to continue. Patient will be watched overnight. There is no need for further workup of stroke in this patient. Care was discussed with the patient. MMODL / IJN: [id number] /
[2018-02-01] MEDS ORDERED: ATORVASTATIN 40 MG TAB PO SCH (21:00)
[2018-02-01] MEDS ORDERED: FINASTERIDE 5 MG TAB PO SCH (21:00)
[2018-02-02] MEDS: ALBUTEROL NEBULIZED 2.5 MG/3 ML INHALATION SCH ×2 (08:46→13:13)
[2018-02-02] MEDS ORDERED: METOPROLOL SUCCINATE (ER) 25 MG TAB.ER.24H PO SCH (09:00)
[2018-02-02] MEDS ORDERED: LISINOPRIL 2.5 MG TAB PO SCH (09:00)
[2018-02-02] MEDS ORDERED: CHOLECALCIFEROL 1,000 UNIT TAB PO SCH (09:00)
[2018-02-02] MEDS ORDERED: POTASSIUM CHLORIDE ER 10 MEQ TAB.ER.PRT PO SCH (09:00)
[2018-02-02] MEDS ORDERED: FUROSEMIDE 40 MG TAB PO SCH (09:00)
--- NOTE | 2018-02-02 10:32 | P.CRDCN ---
History of Present Illness Consult date: 02/02/18 Requesting physician: Brenna Fry Consult reason: atrial fibrillation Chief complaint: Right facial and hand swelling History of present illness: This is an 87-year-old -[place] gentleman with known history of chronic persistent atrial fibrillation, ischemic cardiomyopathy, prior myocardial infarction, hypertension, hyperlipidemia, osteoarthritis, who presented to the emergency room with symptoms of right facial swelling as well as swelling in his right hand. He denies any dizziness or lightheadedness, no trouble with his vision, no chest discomfort or palpitations. In the emergency room there was some concern regarding possible TIA and for this reason he was admitted to the telemetry unit. Cardiology consultation was requested to cause of the patient's history of chronic atrial fibrillation. Computed tomography scan shows atrophy with periventricular white matter ischemic changes, no acute intracranial process noted. Chest x-ray shows mild cardiomegaly. CTA of the chest was performed and did not reveal any evidence for pulmonary embolism. However there is pulmonary arterial hypertension. COPD with mild emphysema. Focal endo-bronchial plugging involving a basilar right lower lobe supple segmental branch. Possible mucoid plugging. Recommend 3-6 month follow-up to exclude small endobronchial mass. Small hiatal hernia. 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 EKG shows atrial fibrillation with a right bundle branch block and left anterior fascicular block. Blood pressure 115/70 with a heart rate in the 80s, 91% on room air. White blood cell count 5.6, hemoglobin 11.3, platelet count 208. D-dimer 2.4. Sodium 141, potassium 4.3, BUN 21, creatinine 1.0. Troponins 0.029, 0.030, 0.039. At the time of my examination this morning, patient states that the swelling has significantly improved. He denies any chest discomfort, no palpitations, no difficulty in breathing. He continues to be in atrial fibrillation with a controlled ventricular response. Past Medical History Past Medical History: Atrial Fibrillation, Heart Failure, COPD, Dementia, GERD/ Reflux, Hyperlipidemia, Hypertension, Memory Impairment, Myocardial Infarction ( [place]), Osteoarthritis (OA), Prostate Disorder Additional Past Medical History / Comment(s): Past UTIs, uti with sepsis, BPH, chronic indwelling gamino, hematuria, afib with RVR, mitral regurg, tricuspid regurt, moderate pulmonary edema,ischemic cardiomyopathy, memory problems, DJD. Last Myocardial Infarction Date:: 1973 History of Any Multi-Drug Resistant Organisms: None Reported Past Surgical History: Heart Catheterization, Orthopedic Surgery Additional Past Surgical History / Comment(s): right knee ligament repair, bilateral cataracts removed with lens implants. Past Anesthesia/Blood Transfusion Reactions: No Reported Reaction Smoking Status: Former smoker - Past Family History Father Additional Family Medical History / Comment(s): heart problems not sure what at age 73 Mother Family Medical History: Diabetes Mellitus Additional Family Medical History / Comment(s): at age 69 from complications from diabetes Medications and Allergies Home Medications Medication Instructions Recorded Confirmed Type Atorvastatin [Lipitor] 40 mg PO HS 05/10/17 02/01/18 History Lisinopril [Zestril] 2.5 mg PO DAILY 05/10/17 02/01/18 History Metoprolol Succinate [Toprol XL] 25 mg PO DAILY 05/10/17 02/01/18 History Potassium Gluconate 99 mg PO DAILY 07/02/17 02/01/18 History Furosemide [Lasix] 40 mg PO DAILY tab 07/08/17 02/01/18 Rx Acetaminophen Tab [Tylenol Tab] 500 - 1,000 mg PO Q6H PRN 02/01/18 02/01/18 History Albuterol Nebulized [Ventolin 2.5 mg INHALATION RT-TID 02/01/18 02/01/18 History Nebulized] Cholecalciferol (Vitamin D3) 2,000 unit PO DAILY 02/01/18 02/01/18 History [Vitamin D3] Finasteride [Proscar] 5 mg PO HS 02/01/18 02/01/18 History Allergies Allergy/AdvReac Type Severity Reaction Status Date / Time No Known Allergies Allergy Verified 02/01/18 08:06 Physical Exam Vitals: Vital Signs Temp Pulse Pulse Pulse Resp BP Pulse Ox 02/02/18 08:59 72 02/02/18 08:45 76 02/02/18 08:00 97.5 F L 89 18 115/70 91 L 02/02/18 04:00 97.6 F 79 18 112/64 98 02/02/18 00:00 98.0 F 81 18 131/73 95 02/01/18 20:47 72 02/01/18 20:34 68 05/22/18 20:00 98.5 F 81 18 110/71 98 02/01/18 16:18 96.7 F L 56 L 16 107/65 99 02/01/18 15:48 97.4 F L 65 20 110/62 96 02/01/18 13:08 64 20 125/67 98 02/01/18 11:44 68 02/01/18 11:35 65 Intake and Output 02/01/18 02/02/18 02/02/18 22:59 06:59 14:59 Intake Total 840 240 Output Total 275 Balance 840 -275 240 Intake: Intake, IV Titration 600 Amount Sodium Chloride 0.9% 1, 600 000 ml @ 75 mls/hr IV . [id number] STA Rx#:[id number] Oral 240 240 Output: Urine 275 Other: Voiding Method Indwelling Catheter Indwelling Catheter Indwelling Catheter Weight 61.4 kg PHYSICAL EXAMINATION: HEENT: Head is atraumatic, normocephalic. Pupils equal, round. Neck is supple. There is no elevated jugular venous pressure. HEART EXAMINATION: Heart S1 and S2 irregularly irregular a systolic murmur is heard. CHEST EXAMINATION: Lungs are clear to auscultation and precussion. No chest wall tenderness is noted on palpation or with deep breathing. ABDOMEN: Soft, nontender. Bowel sounds are heard. No organomegaly noted. EXTREMITIES: 2+ peripheral pulses with no evidence of peripheral edema and no calf tenderness noted. NEUROLOGIC patient is awake, alert and oriented -3. . Results 02/01/18 07:13 02/01/18 07:13 Cardiac Enzymes 02/01/18 02/01/18 Range/Units 14:46 19:51 Troponin I 0.030 0.039 H* (0.000-0.034) ng/mL Current Medications Generic Name Dose Route Start Last Admin Trade Name Freq PRN Reason Stop Dose Admin Acetaminophen 650 mg 02/01/18 11:05 Tylenol Tab PO Q6HR PRN Mild Pain or Fever > 100.5 Acetaminophen 1,000 mg 02/01/18 11:16 Tylenol Tab PO Q6H PRN Pain Albuterol Sulfate 2.5 mg 02/01/18 13:00 02/02/18 08:46 Ventolin Nebulized INHALATION 2.5 mg RT-TID ANNIKA Administration Atorvastatin Calcium 40 mg 02/01/18 21:00 02/01/18 21:57 Lipitor PO 40 mg HS ANNIKA Administration Cholecalciferol 2,000 unit 02/02/18 09:00 02/02/18 09:10 Vitamin D3 PO 2,000 unit DAILY ANNIKA Administration Finasteride 5 mg 02/01/18 21:00 02/01/18 21:57 Proscar PO 5 mg HS ANNIKA Administration Furosemide 40 mg 02/02/18 09:00 02/02/18 09:11 Lasix PO 40 mg DAILY ANNIKA Administration Lisinopril 2.5 mg 02/02/18 09:00 02/02/18 09:11 Zestril PO 2.5 mg DAILY ANNIKA Administration Metoprolol Succinate 25 mg 02/02/18 09:00 02/02/18 09:11 Toprol Xl PO 25 mg DAILY ANNIKA Administration Miscellaneous Information 1 each 02/01/18 08:13 Rx Info: Iv Contrast Was Given MISCELLANE 02/03/18 08:13 DAILY PRN Per Protocol Naloxone HCl 0.2 mg 02/01/18 11:05 Narcan IV Q2M PRN Opioid Reversal Ondansetron HCl 4 mg 02/01/18 11:05 Zofran IVP Q8HR PRN Nausea And Vomiting Potassium Chloride 10 meq 02/02/18 09:00 02/02/18 09:11 K-Dur 10 PO 10 meq DAILY ANNIKA Administration Intake and Output 02/01/18 02/02/18 02/02/18 22:59 06:59 14:59 Intake Total 840 240 Output Total 275 Balance 840 -275 240 Intake: Intake, IV Titration 600 Amount Sodium Chloride 0.9% 1, 600 000 ml @ 75 mls/hr IV . [id number] STA Rx#:[id number] Oral 240 240 Output: Urine 275 Other: Voiding Method Indwelling Catheter Indwelling Catheter Indwelling Catheter Weight 61.4 kg 02/01/18 07:13 02/01/18 07:13 EKG Interpretations (text) EKG shows atrial fibrillation with a right bundle branch block pattern and left anterior fascicular block. Assessment and Plan Plan: Assessment and plan #1 symptoms of right facial and right hand swelling, improved this morning. Possible angioedema. Possible inflammation of this. #2 abnormality in troponin, mild, patient denies chest discomfort, cannot completely rule out underlying coronary artery disease. We will place the patient on small dose of nitrates. #3 chronic persistent atrial fibrillation, rate under good control #4 hypertension #5 hyperlipidemia #6 COPD #7 osteoarthritis #8 nonischemic cardiomyopathy, ejection fraction documented 20-25%. Plan Cardiology's perspective, we will add a small dose of nitrates to the patient's medication regime. Continue baby aspirin, Lipitor, lisinopril, metoprolol, add a small dose of Aldactone to his medication regime. Patient may be able to be transferred to the medical surgical unit. DNP note has been reviewed, I agree with a documented findings and plan of care. Patient was seen and examined.
[2018-02-02 11:08] LABS: Glucose,Whole Blood 173 mg/dL (75-99)
--- NOTE | 2018-02-02 12:35 | P.CNPUL ---
History of Present Illness Consult date: 02/01/18 (Late entry note, evaluated in emergency department) Reason for consult: dyspnea, cough, COPD, pneumonia Chief complaint: Right-sided facial numbness and dysarthria and some facial swelling History of present illness: 87-year-old male with extensive history of smoking and nicotine use and severe COPD presented into emergency department with acute onset of right-sided facial pain dysarthria symptoms were transient improved significantly patient felt some swelling on the face as well, however during evaluation initially in emergency department she he was noted to have significant wheezing, Computed tomography scan shows atrophy with periventricular white matter ischemic changes , no acute intracranial process noted. Chest x-ray shows mild cardiomegaly. CTA of the chest was performed and did not reveal any evidence for pulmonary embolism. However there is pulmonary arterial hypertension. COPD with mild emphysema. Focal endo-bronchial plugging involving a basilar right lower lobe supple segmental branch. Possible mucoid plugging Ammann patient has been started on broad-spectrum antibiotics along with breathing treatments significant improvement, on specific questioning denies any weakness in any part of the body is speech is intact denies any seizure-like activity loss of consciousness) denies any chest pain denies any other bowel or bladder related problems but does have issues this is chronic urinary retention and BPH Review of Systems All systems: negative Past Medical History Past Medical History: Atrial Fibrillation, Heart Failure, COPD, Dementia, GERD/ Reflux, Hyperlipidemia, Hypertension, Memory Impairment, Myocardial Infarction ( [place]), Osteoarthritis (OA), Prostate Disorder Additional Past Medical History / Comment(s): Past UTIs, uti with sepsis, BPH, chronic indwelling gamino, hematuria, afib with RVR, mitral regurg, tricuspid regurt, moderate pulmonary edema,ischemic cardiomyopathy, memory problems, DJD. Last Myocardial Infarction Date:: 1973 History of Any Multi-Drug Resistant Organisms: None Reported Past Surgical History: Heart Catheterization, Orthopedic Surgery Additional Past Surgical History / Comment(s): right knee ligament repair, bilateral cataracts removed with lens implants. Past Anesthesia/Blood Transfusion Reactions: No Reported Reaction Smoking Status: Former smoker - Past Family History Father Additional Family Medical History / Comment(s): heart problems not sure what at age 73 Mother Family Medical History: Diabetes Mellitus Additional Family Medical History / Comment(s): at age 69 from complications from diabetes Medications and Allergies Home Medications Medication Instructions Recorded Confirmed Type Atorvastatin [Lipitor] 40 mg PO HS 05/10/17 02/01/18 History Lisinopril [Zestril] 2.5 mg PO DAILY 05/10/17 02/01/18 History Metoprolol Succinate [Toprol XL] 25 mg PO DAILY 05/10/17 02/01/18 History Potassium Gluconate 99 mg PO DAILY 07/02/17 02/01/18 History Furosemide [Lasix] 40 mg PO DAILY tab 07/08/17 02/01/18 Rx Albuterol Nebulized [Ventolin 2.5 mg INHALATION RT-TID 02/01/18 02/01/18 History Nebulized] Finasteride [Proscar] 5 mg PO HS 02/01/18 02/01/18 History Isosorbide Mononitrate ER [Imdur] 30 mg PO HS #30 tab.er.24h 02/02/18 Rx Spironolactone [Aldactone] 25 mg PO DAILY@1300 #30 tab 02/02/18 Rx Allergies Allergy/AdvReac Type Severity Reaction Status Date / Time No Known Allergies Allergy Verified 02/01/18 08:06 Physical Exam Vitals: Vital Signs Temp Pulse Pulse Pulse Resp BP Pulse Ox 02/02/18 08:59 72 02/02/18 08:45 76 02/02/18 08:00 97.5 F L 89 18 115/70 91 L 02/02/18 04:00 97.6 F 79 18 112/64 98 02/02/18 00:00 98.0 F 81 18 131/73 95 02/01/18 20:47 72 02/01/18 20:34 68 02/01/18 20:00 98.5 F 81 18 110/71 98 02/01/18 16:18 96.7 F L 56 L 16 107/65 99 02/01/18 15:48 97.4 F L 65 20 110/62 96 02/01/18 13:08 64 20 125/67 98 Intake and Output 02/01/18 02/02/18 02/02/18 22:59 06:59 14:59 Intake Total 840 240 Output Total 275 1500 Balance 840 -275 -1260 Intake: Intake, IV Titration 600 Amount Sodium Chloride 0.9% 1, 600 000 ml @ 75 mls/hr IV . [id number] STA Rx#:[id number] Oral 240 240 Output: Urine 275 1500 Uretheral (Gamino) 800 Other: Voiding Method Indwelling Catheter Indwelling Catheter Indwelling Catheter Weight 61.4 kg HEENT: Head is atraumatic, normocephalic. Pupils equal, round. Mild facial asymmetry seen but the strength appears to be symmetrical and adequate Neck is supple. There is no elevated jugular venous pressure. no bruits present HEART EXAMINATION: Heart S1 and S2 irregularly irregular a systolic murmur is heard. CHEST EXAMINATION: Lungs bilaterally noted to have both inspiratory extreme wheezing on auscultation. No chest wall tenderness is noted on palpation or with deep breathing. ABDOMEN: Soft, nontender. Bowel sounds are heard. No organomegaly noted. EXTREMITIES: 2+ peripheral pulses with no evidence of peripheral edema and no calf tenderness noted. NEUROLOGIC patient is awake, alert and oriented -3. Moving all 4 extremity no focal neurological deficit - Constitutional General appearance: average body habitus, cooperative, disheveled, mild distress - EENT Eyes: EOMI, PERRLA, normal appearance ENT: hard of hearing, normal oropharynx Ears: bilateral: normal - Neck Carotids: bilateral: upstroke normal, bruit absent Thyroid: bilateral: normal size - Respiratory Respiratory: bilateral: diminished, rhonchi, wheezing, negative: dullness, rales - Cardiovascular Rhythm: regular Heart sounds: normal: S1, S2 - Gastrointestinal General gastrointestinal: normal bowel sounds, soft - Integumentary Integumentary: normal, normal turgor - Neurologic Neurologic: CNII-XII intact - Musculoskeletal Musculoskeletal: gait normal, generalized weakness, strength equal bilaterally - Psychiatric Psychiatric: A&O x's 3, appropriate affect, intact judgment & insight Results - Laboratory Findings CBC and BMP: 02/01/18 07:13 02/01/18 07:13 PT/INR, D-dimer PT 10.2 sec (9.0-12.0) 02/01/18 07:13 INR 1.0 (<1.2) 02/01/18 07:13 D-Dimer 2.43 mg/L FEU (<0.60) H 02/01/18 07:13 Abnormal lab findings: Abnormal Labs 02/01/18 02/01/18 02/01/18 07:13 07:13 07:13 RBC 3.76 L Hgb 11.3 L Hct 34.7 L Lymphocytes # 0.9 L D-Dimer 2.43 H BUN 21 H Glucose 126 H POC Glucose (mg/dL) Troponin I 02/01/18 02/02/18 19:51 11:06 RBC Hgb Hct Lymphocytes # D-Dimer BUN Glucose POC Glucose (mg/dL) 173 H Troponin I 0.039 H* - Diagnostic Findings Chest x-ray: report reviewed, image reviewed CT scan - chest: report reviewed, image reviewed (Finding consistent with COPD with intramural mucus plugging likely related to above as noted on computed tomography scan of the chest) Assessment and Plan Assessment: Acute COPD exacerbation Baseline moderate to severe COPD Endobronchial mucus plugging versus mass patient to be reevaluated for outpatient setting with short-term follow-up computed tomography scan of the chest or bronchoscopy Facial asymmetry related to parotitis or inflammation of the salivary gland TIA less likely Chronic intermittent atrial fibrillation Severe BPH Gamino's dependent Hypertension hypertensive cardiovascular disease Plan: Bronchodilator Deep breathing exercises incentive spirometry Will hold on bronchoscopy and/or IV steroids for now Antibiotics as per primary service Follow-up in outpatient setting Care plan discussed with granddaughter present at bedside Time with Patient: Greater than 30
--- NOTE | 2018-02-02 12:39 | P.PN ---
Subjective Progress Note Date: 02/02/18 Principal diagnosis: Acute inflammation of salivary gland, acute COPD exacerbation, paroxysmal atrial fibrillation, severe COPD, GERD, hypertension hypertensive cardiovascular disease, BPH with chronic Corado's catheter him a severe degree of cardiomyopathy ejection fraction 20-25% on chronic systolic heart failure 02/02/2018, patient seen eval reexamined during the rounds clinically feeling much better facial pain and swelling and asymmetry has improved, patient able to swallow well, wheezing cuff congestion is improved with breathing treatments patient is being planned for discharge by primary service 87-year-old male with extensive history of smoking and nicotine use and severe COPD presented into emergency department with acute onset of right-sided facial pain dysarthria symptoms were transient improved significantly patient felt some swelling on the face as well, however during evaluation initially in emergency department she he was noted to have significant wheezing, Computed tomography scan shows atrophy with periventricular white matter ischemic changes , no acute intracranial process noted. Chest x-ray shows mild cardiomegaly. CTA of the chest was performed and did not reveal any evidence for pulmonary embolism. However there is pulmonary arterial hypertension. COPD with mild emphysema. Focal endo-bronchial plugging involving a basilar right lower lobe supple segmental branch. Possible mucoid plugging Ammann patient has been started on broad-spectrum antibiotics along with breathing treatments significant improvement, on specific questioning denies any weakness in any part of the body is speech is intact denies any seizure-like activity loss of consciousness) denies any chest pain denies any other bowel or bladder related problems but does have issues this is chronic urinary retention and BPH Objective - Vital Signs Vital signs: Vital Signs Temp 97.5 F L 02/02/18 08:00 Pulse 72 02/02/18 08:59 Resp 18 02/02/18 08:00 BP 115/70 02/02/18 08:00 Pulse Ox 91 L 02/02/18 08:00 Intake & Output 02/01/18 02/02/18 02/02/18 18:59 06:59 18:59 Intake Total 580 600 240 Output Total 603 180 6354 Balance 205 325 -1260 Weight 61.4 kg Intake: Intake, IV Titration 160 600 Amount Sodium Chloride 0.9% 1, 160 600 000 ml @ 75 mls/hr IV . [id number] STA Rx#:[id number] Oral 420 240 Output: Urine 243 974 3026 Uretheral (Corado) 800 Other: Voiding Method Indwelling Catheter Indwelling Catheter Indwelling Catheter - Exam HEENT: Head is atraumatic, normocephalic. Pupils equal, round. Mild facial asymmetry seen but the strength appears to be symmetrical and adequate Neck is supple. There is no elevated jugular venous pressure. no bruits present HEART EXAMINATION: Heart S1 and S2 irregularly irregular a systolic murmur is heard. CHEST EXAMINATION: Lungs bilaterally noted to have both inspiratory extreme wheezing on auscultation. No chest wall tenderness is noted on palpation or with deep breathing. ABDOMEN: Soft, nontender. Bowel sounds are heard. No organomegaly noted. EXTREMITIES: 2+ peripheral pulses with no evidence of peripheral edema and no calf tenderness noted. NEUROLOGIC patient is awake, alert and oriented -3. Moving all 4 extremity no focal neurological deficit - Labs CBC & Chem 7: 02/01/18 07:13 02/01/18 07:13 Labs: Abnormal Lab Results - Last 24 Hours (Table) 02/01/18 02/02/18 Range/Units 19:51 11:06 POC Glucose (mg/dL) 173 H (75-99) mg/dL Troponin I 0.039 H* (0.000-0.034) ng/mL Assessment and Plan Assessment: Acute COPD exacerbation Baseline moderate to severe COPD Endobronchial mucus plugging versus mass patient to be reevaluated for outpatient setting with short-term follow-up computed tomography scan of the chest or bronchoscopy Facial asymmetry related to parotitis or inflammation of the salivary gland TIA less likely Chronic intermittent atrial fibrillation Severe BPH Corado's dependent Hypertension hypertensive cardiovascular disease Plan: Bronchodilator Deep breathing exercises incentive spirometry Will hold on bronchoscopy and/or IV steroids for now Antibiotics as per primary service Follow-up in outpatient setting Care plan discussed with patient, patient is already dressed up ready to go home Time with Patient: Greater than 30
[2018-02-02 14:23] VITALS: TEMP 97.2
[2018-02-02 16:20] VITALS: BP 133/82; PULSE 77; RESP 16
--- NOTE | 2018-02-02 22:13 | DS ---
DISCHARGE SUMMARY FINAL DIAGNOSES: 1. Acute sialitis, inflammation of the salivary gland, in the area of the floor of the mouth external to the jaw on the right side; initially mimicking a transient ischemic attack . 2. Persistent atrial fibrillation, rate controlled. 3. Chronic obstructive pulmonary disease. Gastroesophageal reflux disease. 1. Essential hypertension. 2. Primary osteoarthritis. 3. Benign prostatic hypertrophy with a chronic Corado catheter. 4. Chronic congestive heart failure from chronic congestive heart failure, systolic dysfunction, EF 20% to 25%. 5. Bsazyavv-ly-avuejg mitral regurgitation, nonrheumatic. 6. Severe tricuspid regurgitation, nonrheumatic. 7. Secondary moderate pulmonary hypertension from respiratory failure. 8. Essential hypertension. 9. Osteoarthritis primary. HOSPITAL COURSE: This patient presented with swelling of the right side of the face, some changes in speech initially felt to be TIA, but actually it was an enlarged salivary gland. Responded well to compresses and did go down. The patient was seen by Cardiology who added some nitrates. Patient is really doing well up at the time of discharge. On examination, lungs decreased breath sounds. CARDIOVASCULAR: First and seconds sounds normal. Swelling of the right side of the face is greatly improved. Care was discussed the patient. The patient is doing well and stable for discharge. DISCHARGE MEDICATIONS: 1. Lipitor 40 mg q.h.s. 2. Zestril 2.5 p.o. daily. 3. Toprol-XL 25 mg p.o. daily. 4. Potassium gluconate. 5. Lasix 40 mg a day. 6. Ventolin 2.5 t.i.d. 7. Proscar 5 mg p.o. q.h.s. 8. Imdur ER 30 mg q.h.s. 9. Aldactone 25 mg p.o. daily. FOLLOWUP: Follow up with Dr. Douglass in 3 days, Dr. Davis in 1 week, Dr. Au on 02/18/2018. MMODL / IJN: [id number] /
[2018-02-03] MEDS ORDERED: SPIRONOLACTONE 25 MG TAB PO SCH (09:00)
[2018-02-03] MEDS ORDERED: ISOSORBIDE MONONITRATE ER 30 MG TAB.ER.24H PO SCH (09:00)
== END 2018-02-02 16:43 | disposition home or self-care (01) ==
LOC: EC 06:44 → 6SEL 11:18 → 3OBS 02-02 09:49 → 6SEL 02-02 09:54
PROVIDERS: ADMIT Hospitalist; ATTEND Hospitalist
DX: K11.21 Acute sialoadenitis (principal); K21.9 Gastro-esophageal reflux disease without esophagitis; M19.91 Primary osteoarthritis, unspecified site; I50.22 Chronic systolic (congestive) heart failure; I11.0 Hypertensive heart disease with heart failure; I08.1 Rheumatic disorders of both mitral and tricuspid valves; I27.23 Pulmonary hypertension due to lung diseases and hypoxia; J96.90 Respiratory failure, unspecified, unspecified whether with hypoxia or hypercapnia; Z79.899 Other long term (current) drug therapy; E78.5 Hyperlipidemia, unspecified; I25.2 Old myocardial infarction; Z87.440 Personal history of urinary (tract) infections; I25.5 Ischemic cardiomyopathy; Z87.891 Personal history of nicotine dependence; Z83.3 Family history of diabetes mellitus; R47.1 Dysarthria and anarthria; R79.89 Other specified abnormal findings of blood chemistry; G30.9 Alzheimer's disease, unspecified; F02.80 Dementia in other diseases classified elsewhere, unspecified severity, without behavioral disturbance, psychotic disturbance, mood disturbance, and anxiety; I27.21 Secondary pulmonary arterial hypertension; J44.1 Chronic obstructive pulmonary disease with (acute) exacerbation; J43.9 Emphysema, unspecified; I48.2 Chronic atrial fibrillation; M79.89 Other specified soft tissue disorders; H91.90 Unspecified hearing loss, unspecified ear; N40.1 Benign prostatic hyperplasia with lower urinary tract symptoms; R33.8 Other retention of urine; R77.8 Other specified abnormalities of plasma proteins
CPT/HCPCS: 99291; 96360 ×2; 96361 ×7; 36415; 94640 ×4; 93005; 85379; 80053; 82550; 82553; 84484; 85025; 85610; 85730; 71046; 70450; 71275; G0378 ×3; S0138; Q9967

== ENCOUNTER 2018-03-15 17:27 | Emergency (ER) | payer MEDICARE ==
--- NOTE | 2018-03-15 18:14 | ED ---
General Adult HPI - General Chief complaint: Urogenital Stated complaint: Male Time Seen by Provider: 03/15/18 18:08 Source: patient Mode of arrival: EMS Limitations: physical limitation - History of Present Illness Initial comments: 87-year-old male patient with chronic indwelling Gamino catheter presents to the emergency department today with complaints of urinary retention and leaking around the catheter insertion site. Patient states that he started having some suprapubic abdominal discomfort around 3 or 4 this afternoon is worsened since. Patient states he has had approximately 500 mL output today. States it is normal in color. Patient denies any fevers or chills. Denies any problems with bowel movements. States all his pain is located in the suprapubic region, states it feels like he has to urinate. Patient denies any recent rash, shortness breath, chest pain, nausea, vomiting, diarrhea, constipation, back pain, numbness, tingling, dizziness, weakness, headache, visual changes, or any other complaints. - Related Data Home Medications Medication Instructions Recorded Confirmed Atorvastatin [Lipitor] 40 mg PO HS 05/10/17 03/15/18 Lisinopril [Zestril] 2.5 mg PO DAILY 05/10/17 03/15/18 Metoprolol Succinate [Toprol XL] 25 mg PO DAILY 05/10/17 03/15/18 Potassium Gluconate 99 mg PO DAILY 07/02/17 03/15/18 Albuterol Nebulized [Ventolin 2.5 mg INHALATION RT-TID 02/01/18 03/15/18 Nebulized] Finasteride [Proscar] 5 mg PO HS 02/01/18 03/15/18 Aspirin EC [Ecotrin Low Dose] 81 mg PO DAILY 03/15/18 03/15/18 Spironolactone [Aldactone] 25 mg PO DAILY@1200 03/15/18 03/15/18 Previous Rx's Medication Instructions Recorded Furosemide [Lasix] 40 mg PO DAILY tab 07/08/17 Isosorbide Mononitrate ER [Imdur] 30 mg PO HS #30 tab.er.24h 02/02/18 Ciprofloxacin HCl [Cipro] 500 mg PO Q12HR #14 tablet 03/15/18 Allergies Allergy/AdvReac Type Severity Reaction Status Date / Time No Known Allergies Allergy Verified 03/15/18 19:01 Review of Systems ROS Statement: Those systems with pertinent positive or pertinent negative responses have been documented in the HPI. ROS Other: All systems not noted in ROS Statement are negative. Past Medical History Past Medical History: Atrial Fibrillation, Heart Failure, COPD, Dementia, GERD/ Reflux, Hyperlipidemia, Hypertension, Memory Impairment, Myocardial Infarction ( [place]), Osteoarthritis (OA), Prostate Disorder Additional Past Medical History / Comment(s): Past UTIs, uti with sepsis, BPH, chronic indwelling gamino, hematuria, afib with RVR, mitral regurg, tricuspid regurt, moderate pulmonary edema,ischemic cardiomyopathy, memory problems, DJD. Last Myocardial Infarction Date:: 1973 History of Any Multi-Drug Resistant Organisms: None Reported Past Surgical History: Heart Catheterization, Orthopedic Surgery Additional Past Surgical History / Comment(s): right knee ligament repair, bilateral cataracts removed with lens implants. Past Anesthesia/Blood Transfusion Reactions: No Reported Reaction Past Psychological History: No Psychological Hx Reported Smoking Status: Former smoker - Past Family History Father Additional Family Medical History / Comment(s): heart problems not sure what at age 73 Mother Family Medical History: Diabetes Mellitus Additional Family Medical History / Comment(s): at age 69 from complications from diabetes General Exam Limitations: physical limitation General appearance: alert, in no apparent distress, anxious, other (This is a well-developed, well-nourished adult male patient in no acute distress. Vital signs upon presentation are temperature 98.3F, pulse 65, respirations 18, blood pressure 156/77, pulse ox 96% on room air.) Eye exam: Present: normal appearance, PERRL, EOMI. Absent: scleral icterus, conjunctival injection, periorbital swelling Respiratory exam: Present: normal lung sounds bilaterally. Absent: respiratory distress, wheezes, rales, rhonchi, stridor Cardiovascular Exam: Present: regular rate, normal rhythm, normal heart sounds. Absent: systolic murmur, diastolic murmur, rubs, gallop, clicks GI/Abdominal exam: Present: soft, tenderness (Suprapubic), normal bowel sounds. Absent: distended, guarding, rebound, rigid Neurological exam: Present: alert, oriented X3, CN II-XII intact Psychiatric exam: Present: normal affect, normal mood Skin exam: Present: warm, dry, intact, normal color. Absent: rash Course Vital Signs 03/15/18 17:34 Temperature 98.3 F Pulse Rate 65 Respiratory 18 Rate Blood Pressure 156/77 O2 Sat by Pulse 96 Oximetry Medical Decision Making - Medical Decision Making 87-year-old male patient presented to the emergency department today for evaluation of blocked Gamino catheter. Nursing staff did change out the catheter patient now has good flow. Did perform urinalysis did show evidence of infection. Patient has had previous infections with Citrobacter, this is susceptible to Cipro. We will start Cipro. He is instructed to follow-up with his urologist Dr. Macias, he is instructed to follow up with his primary care physician for recheck. Return parameters discussed in detail. He verbalizes understanding and agrees with this plan. - Lab Data Lab Results 03/15/18 Range/Units 18:31 Urine Color Light Yellow Urine Appearance Clear (Clear) Urine pH 6.0 (5.0-8.0) Ur Specific Disputanta 1.008 (1.001-1.035) Urine Protein 1+ H (Negative) Urine Glucose (UA) Negative (Negative) Urine Ketones Negative (Negative) Urine Blood Small H (Negative) Urine Nitrite Negative (Negative) Urine Bilirubin Negative (Negative) Urine Urobilinogen <2.0 (<2.0) mg/dL Ur Leukocyte Esterase Large H (Negative) Urine RBC 23 H (0-5) /hpf Urine WBC 22 H (0-5) /hpf Urine Bacteria Rare H (None) /hpf Hyaline Casts 4 H (0-2) /lpf Urine Mucus Rare H (None) /hpf Disposition Clinical Impression: Urinary tract infection, Blocked urinary catheter Disposition: HOME SELF-CARE Condition: Good Instructions: Urinary Tract Infection in Men (ED), Gamino Catheter Placement and Care (ED) Additional Instructions: Complete antibiotic prescription in full. Follow-up with urology for further evaluation. Follow-up with primary care physician for recheck in 1-2 days. Return here immediately for any new, worsening, or concerning symptoms. Prescriptions: Ciprofloxacin HCl [Cipro] 500 mg PO Q12HR #14 tablet Is patient prescribed a controlled substance at d/c from ED?: No Referrals: Jaycob Douglass MD [Primary Care Provider] - 1-2 days Time of Disposition: 19:21
[2018-03-15 18:57] LABS: Appearance,Urine Clear (Clear); Bacteria,Urine Rare /hpf; Bilirubin,Urine Negative (Negative); Blood,Urine Small (Negative); Color,Urine Light Yellow; Glucose,Urine (UA) Negative (Negative); Hyaline Casts,Urine 4 /lpf (0-2); Ketones,Urine Negative (Negative); Leukocyte Esterase,Urine Large (Negative); Mucus,Urine Rare /hpf; Nitrite,Urine Negative (Negative); Protein,Urine 1+ (Negative); RBC,Urine 23 /hpf (0-5); Specific Gravity,Urine 1.008 (1.001-1.035); Urobilinogen,Urine <2.0 mg/dL (<2.0); WBC,Urine 22 /hpf (0-5)
[2018-03-15 20:02] VITALS: BP 113/73; PULSE 55; RESP 20; TEMP 97.8
== END 2018-03-15 20:02 | disposition home or self-care (01) ==
LOC: EC 17:27
DX: T83.091A Other mechanical complication of indwelling urethral catheter, initial encounter (principal); N39.0 Urinary tract infection, site not specified; I11.0 Hypertensive heart disease with heart failure; I50.9 Heart failure, unspecified; J44.9 Chronic obstructive pulmonary disease, unspecified; K21.9 Gastro-esophageal reflux disease without esophagitis; E78.5 Hyperlipidemia, unspecified; I25.2 Old myocardial infarction; N42.9 Disorder of prostate, unspecified; Z95.5 Presence of coronary angioplasty implant and graft; Z79.82 Long term (current) use of aspirin; Z79.899 Other long term (current) drug therapy; Z87.891 Personal history of nicotine dependence
CPT/HCPCS: 51702; 81001; 87086; 99283